=== PATIENT | female | born 1985 | race Caucasian/White ===

== ENCOUNTER 2018-02-11 09:45 | Emergency (ER) | payer OTHER, SELFPAY ==
[2018-02-11] MEDS ORDERED: ONDANSETRON 4 MG/2 ML VIAL ONE (10:32)
[2018-02-11] MEDS ORDERED: MAGNE/ALUM HYDROXD 30 ML UCUP ONE (10:32)
[2018-02-11] MEDS ORDERED: LIDOCAINE VISCOUS 2% SOLN 15 ML UDC ONE (10:48)
[2018-02-11 10:51] LABS: Urine Blood NEGATIVE (NEG); Urine Glucose NEGATIVE (NEG); Urine Protein NEGATIVE (NEG)
[2018-02-11 11:03] LABS: Absolute Lymphocytes (CBC) 1.5 K/uL (0.7-4.9); Absolute Monocytes 0.5 K/uL (0.1-1.3); Absolute Neutrophil 8.8 K/uL (1.8-8.0); Basophils % 0.5 % (0-1.3); Eosinophils % 1.7 % (0-4.4); Lymphocytes % 13.3 % (15.3-44.8); MCH 28.1 pg (27.0-35.0); MCV 83.9 fL (80-100); Monocytes % 4.4 % (3.3-12.3); RBC Red Blood Cell Count 4.52 M/uL (3.86-4.86)
--- NOTE | 2018-02-11 11:15 | RAD REPORT ---
EXAM DESCRIPTION: US - Abdomen Exam Limited - 02/11/2018 10:30 am CLINICAL HISTORY: Abdominal pain. COMPARISON: None. FINDINGS: Multiple gallstones are present. The gallbladder wall is thickened measuring 5 millimeters . The biliary tree is normal caliber. IMPRESSION: Cholelithiasis. Thickened gallbladder wall may indicate cholecystitis
[2018-02-11 11:16] LABS: Urine Amorphous Sediment TRACE /HPF (NONE SEEN); Urine Bacteria 20-50 /HPF (<20); Urine Culture Reflex Order NOT NEEDED; Urine RBC <5 /HPF (NONE SEEN)
[2018-02-11 11:33] LABS: ALT/SGPT 39 U/L (12-78); AST/SGOT 39 U/L (15-37); Albumin 3.3 g/dL (3.4-5.0); Alkaline Phosphatase 86 U/L (45-117); BUN Blood Urea Nitrogen 12 mg/dL (7-18); Bicarbonate 30 mmol/L (21-32); Bilirubin Direct 0.2 mg/dL (0-0.2); Bilirubin Total 0.6 mg/dL (0.2-1.0); Glucose Level 140 mg/dL (74-106); Lipase 11181 U/L (73-393); Potassium 3.8 mmol/L (3.5-5.1); Protein, Total 7.7 g/dL (6.4-8.2); Sodium Level 140 mmol/L (136-145)
--- NOTE | 2018-02-11 11:57 | EDPHYS ---
Physician Documentation [facility] Name: More Bustillo Age: 33 yrs Sex: Female : 1985 Arrival Date: 02/11/2018 Time: 09:46 Bed 6 Private MD: Juan Billy S; None, None ED Physician Jorge Alberto Maravilla HPI: 02/11 10:29 This 33 yrs old Female presents to ER via Ambulatory with complaints of rn Abdominal Pain. 10:29 The patient presents with abdominal pain in the epigastric area. Onset: The rn symptoms/episode began/occurred this morning. The symptoms do not radiate. Associated signs and symptoms: Pertinent positives: nausea and vomiting, Pertinent negatives: chest pain, constipation, diarrhea, dysuria, fever, shortness of breath, vomiting blood. The symptoms are described as achy. Modifying factors: The symptoms are alleviated by nothing, the symptoms are aggravated by food. Severity of pain: At its worst the pain was moderate in the emergency department the pain has improved. The patient has experienced similar episodes in the past. Reports epigastric abd pain, began this AM, ate breakfast fine, has had similar episodes in past, has hx of acid reflux, doesn't take any acid medication, remembers similar episodes in past, worse when was . Improving. Threw up 1 time.. 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 - Social history:: Smoking status: Patient uses tobacco products, smokes one-half pack cigarettes per day. - Ebola Screening: : Patient negative for fever greater than or equal to 101.5 degrees Fahrenheit, and additional compatible Ebola Virus Disease symptoms Patient denies exposure to infectious person Patient denies travel to an Ebola-affected area in the 21 days before illness onset No symptoms or risks identified at this time. - Family history:: not pertinent. - Hospitalizations: : No recent hospitalization is reported. ROS: 10:29 Constitutional: Negative for fever, chills, and weight loss, Eyes: Negative for injury, rn pain, redness, and discharge, Neck: Negative for injury, pain, and swelling, Cardiovascular: Negative for chest pain, palpitations, and edema, Respiratory: Negative for shortness of breath, cough, wheezing, and pleuritic chest pain, Abdomen/GI: Negative for diarrhea, and constipation, Back: Negative for injury and pain, MS/Extremity: Negative for injury and deformity, Skin: Negative for injury, rash, and discoloration, Neuro: Negative for headache, weakness, numbness, tingling, and seizure. Exam: 10:29 Constitutional: This is a well developed, well nourished patient who is awake, alert, rn and in no acute distress. Head/Face: Normocephalic, atraumatic. Eyes: Pupils equal round and reactive to light, extra-ocular motions intact. Lids and lashes normal. Conjunctiva and sclera are non-icteric and not injected. Cornea within normal limits. Periorbital areas with no swelling, redness, or edema. Cardiovascular: Regular rate and rhythm with a normal S1 and S2. No gallops, murmurs, or rubs. Normal PMI, no JVD. No pulse deficits. Respiratory: Lungs have equal breath sounds bilaterally, clear to auscultation and percussion. No rales, rhonchi or wheezes noted. No increased work of breathing, no retractions or nasal flaring. Abdomen/GI: soft, + mild epigastric and RUQ tenderness, no rebound MS/ Extremity: Pulses equal, no cyanosis. Neurovascular intact. Full, normal range of motion. Equal circumference. Neuro: Awake and alert, GCS 15, oriented to person, place, time, and situation. Vital Signs: 09:59 BP 136 / 75; Pulse 96; Resp 17; Temp 97.4; Pulse Ox 98% on R/A; Weight 149.69 kg; aj Height 5 ft. 6 in. (167.64 cm); 11:00 BP 150 / 87; Pulse 85; Resp 17; Pulse Ox 97% on R/A; tw2 09:59 Body Mass Index 53.26 (149.69 kg, 167.64 cm) aj MDM: 10:13 Patient medically screened. rn 11:52 Differential diagnosis: cholecystitis, Cholelithiasis, gastritis, gastroesophageal rn reflux disease, non-specific abd pain, pancreatitis, Peptic Ulcer Disease, Perf. Duodenal Ulcer. Data reviewed: vital signs, nurses notes, lab test result(s), radiologic studies, ultrasound, and as a result, I will admit patient. Counseling: I had a detailed discussion with the patient and/or guardian regarding: the historical points, exam findings, and any diagnostic results supporting the discharge/admit diagnosis, lab results, radiology results, the need for further work-up and treatment in the hospital. Response to treatment: the patient's symptoms have markedly improved after treatment, and as a result, I will admit patient. Admission orders: after a detailed discussion of the patient's condition and case, the admit orders are written by me. ED course: Spoke with patient, told her needs to be admitted for EGD and cholecystectomy, for gallstone pancreatitis, patient refuses, she states she does not believe she has these problems I explained to her, wants a second opinion, I tried to convince her to stay and not leave, she refused, demands someone pulls out IV and lets her go, mother in room, agrees and asks to pull out IV.. 02/11 10:00 Order name: Urine Culture [facility] 02/11 10:00 Order name: Urine Microscopic Only; Complete Time: 11: [facility] 02/11 10:19 Order name: Basic Metabolic Panel; Complete Time: : 02/11 10:19 Order name: CBC with Diff; Complete Time: : 02/11 10:00 Order name: Urine Test (obtain specimen); Complete Time: 10:30 [facility] 02/11 10:19 Order name: Hepatic Function; Complete Time: : 02/11 10:19 Order name: Lipase; Complete Time: : 02/11 10:19 Order name: US Abdomen Limited; Complete Time: 11: 02/11 10:33 Order name: Urine Dipstick--Ancillary (enter results); Complete Time: 10:52 02/11 10:33 Order name: Urine --Ancillary (enter results); Complete Time: 10: 02/11 10:00 Order name: Urine Dipstick-Ancillary (obtain specimen); Complete Time: 10:30 [facility] 02/11 10:19 Order name: IV Saline Lock; Complete Time: 11: 02/11 10:19 Order name: Labs collected and sent; Complete Time: 11:00 rn Administered Medications: 10:42 Drug: Zofran 4 mg Route: IVP; Site: right antecubital; tw2 11:50 Follow up: Response: No adverse reaction tw2 10:50 Drug: GI Cocktail without - (Maalox Suspension 30 ml, Lidocaine Liquid 2 % 15 tw2 ml) Route: PO; 11:50 Follow up: Response: No adverse reaction tw2 Disposition: 02/11/18 11:56 Patient has left against medical advice. Impression: Acute pancreatitis, Cholelithiasis, Cholecystitis, unspecified. - Patients states they are going to Home. - Condition is Stable. - Discharge Instructions: Cholecystitis, Acute Pancreatitis, Cholelithiasis. Follow up: Private Physician; When: Upon discharge from the Emergency Department; Reason: Recheck today's complaints, Re-evaluation by your physician. - Problem is new. - Symptoms have improved. Signatures: Dispatcher [employer] EDMS Kadie Patel RN RN aj Therrien, Shelly, DIRECTOR RELIGIOUS EDUCATION-C DIRECTOR RELIGIOUS EDUCATION-Csnw Jorge Alberto Maravilla MD MD rn Wise, Tara, RN RN tw2 Corrections: (The following items were deleted from the chart) 10:26 10:00 Urine Culture+BA.LAB.BRZ ordered. EDMO EDMS 10:26 10:00 UA MICROSCOPIC+U.LAB.BRZ ordered. EDMO EDMS 12:06 11:56 02/11/2018 11:56 Patients has left against medical advice. Impression: Acute tw2 pancreatitis; Cholelithiasis; Cholecystitis, unspecified. Patient states they are going to Home. Condition is Stable. Follow up: Private Physician; When: Upon discharge from the Emergency Department; Reason: Recheck today's complaints, Re-evaluation by your physician. Problem is new. Symptoms have improved. rn
--- NOTE | 2018-02-11 11:57 | ER ---
Nurse's Notes [facility] Name: More Bustillo Age: 33 yrs Sex: Female : 1985 Arrival Date: 02/11/2018 Time: 09:46 Bed 6 Private MD: Juan Billy S; None, None Diagnosis: Acute pancreatitis;Cholelithiasis;Cholecystitis, unspecified Presentation: 02/11 09:58 Presenting complaint: Patient states: RUQ pain that started this AM with nausea. aj Transition of care: patient was not received from another setting of care. Onset of symptoms was February 11, 2018. Risk Assessment: Do you want to hurt yourself or someone else? Patient reports no desire to harm self or others. Initial Sepsis Screen: Does the patient meet any 2 criteria? No. Patient's initial sepsis screen is negative. Does the patient have a suspected source of infection? No. Patient's initial sepsis screen is negative. Care prior to arrival: None. 09:58 Method Of Arrival: Ambulatory 09:58 Acuity: CHAD 3 aj Triage Assessment: 09:59 General: Appears in no apparent distress. comfortable, Behavior is calm, cooperative, aj appropriate for age. Pain: Complains of pain in right upper quadrant. Neuro: Level of Consciousness is awake, alert, obeys commands, Oriented to person, place, time, situation, Appropriate for age. Respiratory: Airway is patent Respiratory effort is even, unlabored, Respiratory pattern is regular, symmetrical. GI: Abdomen is obese, Reports upper abdominal pain, nausea. Derm: Skin is intact, is healthy with good turgor, Skin is pink, warm \T\ dry. normal. 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 - Social history:: Smoking status: Patient uses tobacco products, smokes one-half pack cigarettes per day. - Ebola Screening: : Patient negative for fever greater than or equal to 101.5 degrees Fahrenheit, and additional compatible Ebola Virus Disease symptoms Patient denies exposure to infectious person Patient denies travel to an Ebola-affected area in the 21 days before illness onset No symptoms or risks identified at this time. - Family history:: not pertinent. - Hospitalizations: : No recent hospitalization is reported. Screenin:20 Abuse screen: Denies threats or abuse. Nutritional screening: No deficits noted. tw2 Tuberculosis screening: No symptoms or risk factors identified. Fall Risk None identified. Assessment: 11:01 Reassessment: Patient appears in no apparent distress at this time. Patient and/or tw2 family updated on plan of care and expected duration. Pain level reassessed. Patient is alert, oriented x 3, equal unlabored respirations, skin warm/dry/pink. Vital Signs: 09:59 BP 136 / 75; Pulse 96; Resp 17; Temp 97.4; Pulse Ox 98% on R/A; Weight 149.69 kg; aj Height 5 ft. 6 in. (167.64 cm); 11:00 BP 150 / 87; Pulse 85; Resp 17; Pulse Ox 97% on R/A; tw2 09:59 Body Mass Index 53.26 (149.69 kg, 167.64 cm) aj ED Course: 09:46 Patient arrived in ED. sb2 09:46 Juan Billy MD is Private Physician. sb2 09:52 None, None is Private Physician. sb2 09:59 Triage completed. aj 09:59 Arm band placed on right wrist. Patient placed in waiting room, Patient notified of wait time. 10:03 Ezequiel Sutton MD is Attending Physician. [facility] 10:05 Bed in low position. Call light in reach. Pulse ox on. NIBP on. tw2 10:09 Attending Physician role handed off by Ezequiel Sutton MD rn 10:09 Jorge Alberto Maravilla MD is Attending Physician. rn 10:24 Ronda Hernandez, MIGUEL is Primary Nurse. tw2 10:29 Patient moved back from ultrasound. sv 10:30 US Abdomen Limited In Process Unspecified. EDMS 11:00 Urine Microscopic Only Sent. tw2 11:00 Urine Culture Sent. tw2 11:00 Inserted saline lock: 22 gauge in right antecubital area, using aseptic technique. tw2 Blood collected. Missed attempt(s): 22 gauge in left antecubital area. Bleeding controlled, band aid applied, catheter tip intact. 12:06 IV discontinued, intact, bleeding controlled, No redness/swelling at site. Pressure tw2 dressing applied. Administered Medications: 10:42 Drug: Zofran 4 mg Route: IVP; Site: right antecubital; tw2 11:50 Follow up: Response: No adverse reaction tw2 10:50 Drug: GI Cocktail without - (Maalox Suspension 30 ml, Lidocaine Liquid 2 % 15 tw2 ml) Route: PO; 11:50 Follow up: Response: No adverse reaction tw2 Outcome: 12:06 AMA AMA form signed tw2 12:06 Patient left the ED. tw2 Signatures: Dispatcher [employer] EDGenie Morales RN Kadie Savage RN Ezequiel May MD MD cha Nieto, Roman, MD MD rn Wise, Tara, RN RN tw2 La Kaplan sb2
[2018-02-11 12:16] VITALS: TEMP 97.4
[2018-02-11 12:17] VITALS: BP 150/87; O2SAT 97
== END 2018-02-11 12:06 | disposition left against medical advice (07) ==
LOC: ER 09:45
DX: K85.90 Acute pancreatitis without necrosis or infection, unspecified (principal); K80.10 Calculus of gallbladder with chronic cholecystitis without obstruction; F17.210 Nicotine dependence, cigarettes, uncomplicated; Z88.6 Allergy status to analgesic agent; Z88.0 Allergy status to penicillin
CPT/HCPCS: 36415; 76705; 80048; 80076; 81003; 81015; 81025; 83690; 85025; 87077; 87086; 87088; 87186; 96374; 99284; J2405

== ENCOUNTER 2018-03-11 08:55 | Inpatient (IN) | payer SELFPAY ==
[2018-03-11 09:46] LABS: Absolute Lymphocytes (CBC) 0.9 K/uL (0.7-4.9); Absolute Monocytes 0.9 K/uL (0.1-1.3); Basophils % 0.3 % (0-1.3); Eosinophils % 0.3 % (0-4.4); Hematocrit 43.2 % (36.0-45.0); Lymphocytes % 6.6 % (15.3-44.8); MCV 83.5 fL (80-100); MPV 9.1 fL (7.6-11.3); Monocytes % 6.4 % (3.3-12.3); RBC Red Blood Cell Count 5.18 M/uL (3.86-4.86)
[2018-03-11 09:57] LABS: Urine Bacteria 20-50 /HPF (<20); Urine Culture Reflex Order REFLEXED; Urine RBC NONE SEEN /HPF (NONE SEEN)
[2018-03-11 09:59] LABS: Urine Blood NEGATIVE (NEG); Urine Glucose NEGATIVE (NEG); Urine Protein 2+ (NEG); Urine Specific Gravity 1.025 (1.005-1.030)
[2018-03-11 10:07] LABS: ALT/SGPT 241 U/L (12-78); Albumin 3.9 g/dL (3.4-5.0); Alkaline Phosphatase 113 U/L (45-117); BUN Blood Urea Nitrogen 13 mg/dL (7-18); Bicarbonate 28 mmol/L (21-32); Bilirubin Direct 0.8 mg/dL (0-0.2); Bilirubin Total 1.1 mg/dL (0.2-1.0); Glucose Level 122 mg/dL (74-106); Magnesium 1.8 mg/dL (1.8-2.4); Potassium 3.8 mmol/L (3.5-5.1); Protein, Total 8.3 g/dL (6.4-8.2); Sodium Level 136 mmol/L (136-145)
--- NOTE | 2018-03-11 10:07 | RAD REPORT ---
EXAM DESCRIPTION: US - Abdomen Exam Limited - 03/11/2018 9:58 am CLINICAL HISTORY: EPIGASTRIC PAIN COMPARISON: Abdomen Exam Limited dated 02/11/2018 FINDINGS: The gallbladder demonstrates multiple shadowing gallstones. No pericholecystic fluid or ga llbladder wall thickening. The common bile duct is normal measuring 4 mm. The liver demonstrates no findings of intrahepatic biliary dilatation. IMPRESSION: Cholelithiasis.
[2018-03-11 10:10] LABS: AST/SGOT 466 U/L (15-37)
[2018-03-11 10:11] LABS: Amylase Level > 650 U/L (25-115); Lipase > 1500 U/L (73-393)
[2018-03-11 10:38] LABS: Blood Morphology Comment NOT SEEN (NOT SEEN); Platelet Estimate ADEQ; Urine White Blood Cell Casts OK
[2018-03-11] MEDS ORDERED: CEFTRIAXONE/SWI 1gm 1 GM/10 ML SYR ONE (10:53)
--- NOTE | 2018-03-11 11:15 | RAD REPORT ---
EXAM DESCRIPTION: CTAbdomen Pelvis W Contrast - 03/11/2018 11:05 am CLINICAL HISTORY: Abdominal pain. upper abdomen pain COMPARISON: Abdomen Exam Limited dated 03/11/2018; Abdomen Exam Limited dated 02/11/2018 TECHNIQUE: Biphasic CT imaging of the abdomen and pelvis was performed with 100 ml non-ionic IV cont rast. All CT scans are performed using dose optimization technique as appropriate and may include automated exposure control or mA/KV adjustment according to patient size. FINDINGS: The lung bases are clear. Mild fatty liver is noted. The spleen, adrenal glands and kidneys are within normal limits. An edemat ous appearance to the pancreas is seen with mild peripancreatic fat stranding compatible with mild ac kelly pancreatitis. No pseudocyst or abscess. No portal vein thrombus. No bowel obstruction, free air, free fluid or abscess. The appendix is normal. No evidence of signi ficant lymphadenopathy. No suspicious bony findings. IMPRESSION: Mild acute pancreatitis is noted.
--- NOTE | 2018-03-11 11:35 | ER ---
Nurse's Notes [facility] Name: More Bsutillo Age: 33 yrs Sex: Female : 1985 Arrival Date: 03/11/2018 Time: 08:59 Bed 14 Private MD: None, None Diagnosis: Acute pancreatitis, unspecified;Cholelithiasis Presentation: 03/11 09:07 Presenting complaint: Patient states: i started having this abdominal pain (epigastric hj area) that started around 4 am today, was here last month for the same problem and was told i have gall stones that were small; reports nausea, denies vomiting; denies diarrhea/ constipation; denies fever and chills;. Transition of care: patient was not received from another setting of care. Onset of symptoms was March 11, 2018. Risk Assessment: Do you want to hurt yourself or someone else? Patient reports no desire to harm self or others. Initial Sepsis Screen: Does the patient meet any 2 criteria? No. Patient's initial sepsis screen is negative. Does the patient have a suspected source of infection? No. Patient's initial sepsis screen is negative. Care prior to arrival: None. 09:07 Method Of Arrival: Ambulatory 09:07 Acuity: CHAD 3 hj Triage Assessment: 09:11 General: Appears in no apparent distress. uncomfortable, obese, Behavior is calm, hj cooperative, appropriate for age. Pain: Complains of pain in epigastric area. GI: Reports upper abdominal pain, nausea. 09:11 EENT: No signs and/or symptoms were reported regarding the EENT system. Neuro: Level of hj Consciousness is awake, alert, obeys commands, Oriented to person, place, time, situation, Appropriate for age. Cardiovascular: Capillary refill < 3 seconds Patient's skin is warm and dry. Respiratory: Airway is patent Respiratory effort is even, unlabored, Respiratory pattern is regular, symmetrical. : No signs and/or symptoms were reported regarding the genitourinary system. Derm: No signs and/or symptoms reported regarding the dermatologic system. Musculoskeletal: No signs and/or symptoms reported regarding the musculoskeletal system. 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 - Social history:: Smoking status: Patient uses tobacco products, smokes one-half pack cigarettes per day, Patient/guardian denies using alcohol. - Ebola Screening: : Patient negative for fever greater than or equal to 101.5 degrees Fahrenheit, and additional compatible Ebola Virus Disease symptoms Patient denies exposure to infectious person Patient denies travel to an Ebola-affected area in the 21 days before illness onset. Screenin:11 Abuse screen: Denies threats or abuse. Denies injuries from another. Nutritional hj screening: No deficits noted. Tuberculosis screening: No symptoms or risk factors identified. Fall Risk None identified. Assessment: 09:11 GI: Bowel sounds present X 4 quads. Abd is soft Abdomen is tender to palpation. hj 09:14 Reassessment: Patient and/or family updated on plan of care and expected duration. Pain hj level reassessed. Patient is alert, oriented x 3, equal unlabored respirations, skin warm/dry/pink. see triage for assessment;. 11:24 Reassessment: Patient and/or family updated on plan of care and expected duration. Pain hj level reassessed. Patient is alert, oriented x 3, equal unlabored respirations, skin warm/dry/pink. for possible admit;. 13:16 Reassessment: Patient and/or family updated on plan of care and expected duration. Pain cc3 level reassessed. Patient is alert, oriented x 3, equal unlabored respirations, skin warm/dry/pink. for admit; 214;. Vital Signs: 09:12 BP 149 / 96; Pulse 88; Resp 18; Temp 97.8(O); Pulse Ox 97% on R/A; Weight 156.49 kg; hj Height 5 ft. 6 in. (167.64 cm); Pain 8/10; 09:53 BP 140 / 89; Pulse 89; Resp 18; Pulse Ox 100% on R/A; hj 11:24 BP 123 / 62; Pulse 89; Resp 18; Pulse Ox 97% on R/A; hj 13:16 BP 119 / 69; Pulse 85; Resp 18; Pulse Ox 100% on R/A; cc3 09:12 Body Mass Index 55.68 (156.49 kg, 167.64 cm) ED Course: 08:59 Patient arrived in ED. sb2 08:59 None, None is Private Physician. sb2 09:02 [facility] cp 09:02 Jorge Alberto Maravilla MD is Attending Physician. cp 09:04 Evan Giron, MIGUEL is Primary Nurse. hj 09:09 Triage completed. hj 09:11 Arm band placed on right wrist. hj 09:13 Patient has correct armband on for positive identification. Placed in gown. Bed in low hj position. Call light in reach. Side rails up X 1. Adult w/ patient. 09:31 EKG done, by mold maintenance technician. reviewed by Ezequiel LIRIANO. at1 09:31 Inserted saline lock: 20 gauge in right antecubital area, using aseptic technique. ag Blood collected. IV started by EMS student Susannah Eddy Supervised by Meka. 09:33 Magnesium Sent. ag 09:33 Troponin I Sent. ag 09:33 Amylase, Serum Sent. ag 09:34 Basic Metabolic Panel Sent. ag 09:34 CBC with Diff Sent. ag 09:34 Creatinine for Radiology Sent. ag 09:34 Hepatic Function Sent. ag 09:34 Lipase Sent. ag 09:57 Ultrasound completed. Patient tolerated well. Note: US DONE BEDSIDE. aa4 09:58 US Abdomen Limited In Process Unspecified. EDMS 10:[address] via wheelchair. sj 11:05 CT Abd/Pelvis - W/Contrast In Process Unspecified. EDMS 11:05 CT completed. Patient tolerated procedure well. Patient moved back from CT. sj 11:34 Alize Dolan MD is Hospitalizing Provider. cp 14:23 No provider procedures requiring assistance completed. Patient admitted, IV remains in hj place. intact. Administered Medications: 11:16 Drug: Rocephin - (cefTRIAXone) 1 grams Route: IVPB; Infused Over: 30 mins; Site: right hj antecubital; 13:24 Follow up: IV Status: Completed infusion cc3 11:24 Drug: Zofran 4 mg Route: IVP; Site: right antecubital; hj 13:25 Follow up: Response: No adverse reaction cc3 11:24 Drug: morphine 4 mg Route: IVP; Site: right antecubital; hj 13:25 Follow up: Response: No adverse reaction cc3 11:25 Drug: ProTONIX 40 mg Route: IVP; Site: right antecubital; hj 13:25 Follow up: Response: No adverse reaction cc3 11:27 Drug: metroNIDAZOLE 500 mg Volume: 100 ml; Route: IVPB; Infused Over: 30 mins; Site: hj right antecubital; 13:26 Follow up: IV Status: Completed infusion cc3 Outcome: 11:34 Decision to Hospitalize by Provider. cp 13:45 Admitted to Med/surg accompanied by nurse, via wheelchair, room 214, with chart, Report hj called to MIGUEL Newsome 13:45 Condition: stable 13:45 Instructed on the need for admit, Demonstrated understanding of instructions. 14:26 Patient left the ED. Signatures: Dispatcher [employer] EDMS Tess Bravo Amanda aa4 Kadie Tyson, front desk EKG Tat1 Meka Oconnor Henry, RN RN Ezequiel Patel PA PA La Paredes sb2 Jennifer Todd cc3 Corrections: (The following items were deleted from the chart) 14:25 14:23 Condition: stable [facility] 14:25 14:23 Admitted to Med/surg accompanied by nurse, via wheelchair, room 214, with chart, hj Report called to MIGUEL Newsome 14: 14:23 Instructed on the need for admit, Demonstrated understanding of instructions, [facility]
--- NOTE | 2018-03-11 11:35 | EDPHYS ---
Physician Documentation [facility] Name: More Bustillo Age: 33 yrs Sex: Female : 1985 Arrival Date: 03/11/2018 Time: 08:59 Bed 14 Private MD: None, None ED Physician Jorge Alberto Maravilla HPI: 03/11 09:17 This 33 yrs old Female presents to ER via Ambulatory with complaints of cp Abdominal Pain. 09:17 The patient presents with abdominal pain in the epigastric area. cp 09:17 Onset: The symptoms/episode began/occurred this morning. The symptoms radiate to right cp back. Associated signs and symptoms: Pertinent positives: nausea and vomiting, Pertinent negatives: blood in stools, chest pain, constipation, diarrhea, fever, vomiting blood. The symptoms are described as waxing/waning. SLIP MAKER: 09:12 LMP 02/11/2018 hj Historical: - Allergies: 09:10 Codeine; hj 09:10 PENICILLINS; hj - Home Meds: 09:10 Nexium Oral [Active]; Ibuprofen Oral [Active]; hj - PMHx: 09:10 Asthma; seasonal allergies; hj - PSHx: 09:10 None; hj - Immunization history:: Adult Immunizations up to date. - Social history:: Smoking status: Patient uses tobacco products, smokes one-half pack cigarettes per day, Patient/guardian denies using alcohol. - Ebola Screening: : Patient negative for fever greater than or equal to 101.5 degrees Fahrenheit, and additional compatible Ebola Virus Disease symptoms Patient denies exposure to infectious person Patient denies travel to an Ebola-affected area in the 21 days before illness onset. ROS: 09:20 Constitutional: Negative for body aches, chills, fever, poor PO intake. cp 09:20 Eyes: Negative for injury, pain, redness, and discharge. cp 09:20 ENT: Negative for drainage from ear(s), ear pain, sore throat, difficulty swallowing, difficulty handling secretions. 09:20 Cardiovascular: Negative for chest pain, edema, palpitations. 09:20 Respiratory: Negative for cough, shortness of breath, wheezing. 09:20 Abdomen/GI: Positive for abdominal pain, nausea, vomiting, Negative for diarrhea, constipation, hematemesis, black/tarry stool, rectal bleeding. 09:20 Back: Positive for radiated pain. 09:20 : Negative for urinary symptoms, flank pain. 09:20 Skin: Negative for cellulitis, rash. 09:20 Neuro: Negative for altered mental status, headache, weakness. 09:20 All other systems are negative. Exam: 09:25 Constitutional: The patient appears in no acute distress, alert, awake, cp non-diaphoretic, non-toxic, well developed, well nourished, obese. 09:25 Head/Face: Normocephalic, atraumatic. Eyes: Pupils equal round and reactive to light, cp extra-ocular motions intact. Lids and lashes normal. Conjunctiva and sclera are non-icteric and not injected. Cornea within normal limits. Periorbital areas with no swelling, redness, or edema. ENT: Nares patent. No nasal discharge, no septal abnormalities noted. Tympanic membranes are normal and external auditory canals are clear. Oropharynx with no redness, swelling, or masses, exudates, or evidence of obstruction, uvula midline. Mucous membranes moist. 09:25 Neck: External neck: is normal, ROM/movement: is normal, is supple, without pain, no range of motions limitations, no nuchal rigidity. 09:25 Chest/axilla: Inspection: normal, Palpation: is normal, no crepitus, no tenderness. 09:25 Cardiovascular: Rate: normal, Rhythm: regular, Edema: is not appreciated, JVD: is not appreciated. 09:25 Respiratory: the patient does not display signs of respiratory distress, Respirations: normal, no use of accessory muscles, no retractions, no splinting, no tachypnea, labored breathing, is not present, Breath sounds: are clear throughout, no decreased breath sounds, no stridor, no wheezing. 09:25 Abdomen/GI: Inspection: obese Bowel sounds: active, all quadrants, Palpation: soft, in all quadrants, rebound tenderness, is not appreciated, voluntary guarding, is elicited in the epigastric area and right upper quadrant, involuntary guarding, is not appreciated. 09:25 Back: pain, that is mild, of the right mid back, ROM is normal. 09:25 Skin: cellulitis, is not appreciated, no rash present. 09:25 Neuro: Orientation: to person, place \T\ time. Mentation: lucid, able to follow commands, Cerebellar function: is grossly normal, Motor: moves all fours, strength is normal, Sensation: no obvious gross deficits. 09:26 ECG was reviewed by the Attending Physician. cp Vital Signs: 09:12 BP 149 / 96; Pulse 88; Resp 18; Temp 97.8(O); Pulse Ox 97% on R/A; Weight 156.49 kg; hj Height 5 ft. 6 in. (167.64 cm); Pain 8/10; 09:53 BP 140 / 89; Pulse 89; Resp 18; Pulse Ox 100% on R/A; hj 11:24 BP 123 / 62; Pulse 89; Resp 18; Pulse Ox 97% on R/A; hj 13:16 BP 119 / 69; Pulse 85; Resp 18; Pulse Ox 100% on R/A; cc3 09:12 Body Mass Index 55.68 (156.49 kg, 167.64 cm) hj MDM: 09:04 Patient medically screened. cp 10:00 Differential diagnosis: cholecystitis, Cholelithiasis, gastritis, pancreatitis, Peptic cp Ulcer Disease, Perf. Duodenal Ulcer, Perf. Gastric Ulcer, Pyelonephritis, Ureterolithiasis, urinary tract infection. 11:20 Data reviewed: vital signs, nurses notes, lab test result(s), EKG, radiologic studies, cp CT scan, ultrasound. 11:20 Test interpretation: by ED physician or midlevel provider: ECG. Counseling: I had a cp detailed discussion with the patient and/or guardian regarding: the historical points, exam findings, and any diagnostic results supporting the discharge/admit diagnosis, lab results, radiology results, the need for further work-up and treatment in the hospital. Response to treatment: the patient's symptoms have mildly improved after treatment. 11:30 Physician consultation: Alize Dolan MD was contacted at 11:30, regarding admission, cp to the medical/surgical unit. patient's condition, would like consultation with Dr. DR Horan and DR Rocha. 03/11 09:13 Order name: Amylase, Serum; Complete Time: 10:38 cp 03/11 09:13 Order name: Basic Metabolic Panel; Complete Time: 10:38 cp 03/11 10:38 Interpretation: Normal except: GLUC 122. cp 03/11 09:13 Order name: CBC with Diff; Complete Time: 10:40 cp 03/11 10:01 Interpretation: Normal except: WBC 13.9; RBC 5.18; ZACHERY% 86.4; LYM% 6.6; NEUT A 12.0. 03/11 09:13 Order name: Creatinine for Radiology; Complete Time: 10:00 03/11 09:13 Order name: Hepatic Function; Complete Time: 10:38 03/11 10:39 Interpretation: Normal except: AST 466; ALT 241; BILIT 1.1; BILID 0.8; TP 8.3; GLOB cp 4.4; A/G 0.9. 03/11 09:13 Order name: Lipase; Complete Time: 10:38 03/11 10:39 Interpretation: Abnormal: LIP > 1500. 03/11 09:13 Order name: Urine Microscopic Only; Complete Time: 10:00 03/11 10:11 Interpretation: Normal except: UBACT 20-50. 03/11 09:13 Order name: Troponin I; Complete Time: 10:08 03/11 09:13 Order name: Magnesium; Complete Time: 10:38 03/11 09:23 Order name: Urine Dipstick--Ancillary (enter results); Complete Time: 10:00 03/11 10:39 Interpretation: Normal except: UPROT 2+; UESTR TRACE. 03/11 09:23 Order name: Urine --Ancillary (enter results); Complete Time: 10:00 03/11 09:28 Order name: US Abdomen Limited; Complete Time: 10:08 03/11 10:08 Interpretation: Report reviewed. 03/11 09:49 Order name: CBC Smear Scan; Complete Time: 10:40 [facility] 03/11 09:59 Order name: Urine Culture [facility] 03/11 09:13 Order name: Urine Test (obtain specimen); Complete Time: 09:15 03/11 09:13 Order name: IV Saline Lock; Complete Time: 09:29 03/11 09:13 Order name: Labs collected and sent; Complete Time: 09:29 03/11 09:13 Order name: Urine Dipstick-Ancillary (obtain specimen); Complete Time: 09:15 03/11 09:13 Order name: EKG; Complete Time: 09:13 03/11 10:10 Order name: CT Abd/Pelvis - W/Contrast; Complete Time: 11:15 03/11 11:16 Interpretation: Report reviewed. cp 03/11 11:13 Order name: NPO; Complete Time: 11:17 cp EC: Rate is 95 beats/min. Rhythm is regular. IN interval is normal. QRS interval is cp prolonged at 110 msec. QT interval is prolonged at 398 msec. Interpreted by me. Reviewed by me. Administered Medications: 11:16 Drug: Rocephin - (cefTRIAXone) 1 grams Route: IVPB; Infused Over: 30 mins; Site: right hj antecubital; 13:24 Follow up: IV Status: Completed infusion cc3 11:24 Drug: Zofran 4 mg Route: IVP; Site: right antecubital; hj 13:25 Follow up: Response: No adverse reaction cc3 11:24 Drug: morphine 4 mg Route: IVP; Site: right antecubital; hj 13:25 Follow up: Response: No adverse reaction cc3 11:25 Drug: ProTONIX 40 mg Route: IVP; Site: right antecubital; hj 13:25 Follow up: Response: No adverse reaction cc3 11:27 Drug: metroNIDAZOLE 500 mg Volume: 100 ml; Route: IVPB; Infused Over: 30 mins; Site: hj right antecubital; 13:26 Follow up: IV Status: Completed infusion cc3 Disposition: 16:23 Co-signature as Attending Physician, Jorge Alberto Maravilla MD. rn Disposition: 03/11/18 11:34 Hospitalization ordered by Alize Dolan for Inpatient Admission. Preliminary diagnosis are Acute pancreatitis, unspecified, Cholelithiasis. - Bed requested for Telemetry/MedSurg (Inpatient). - Status is Inpatient Admission. hj - Condition is Stable. - Problem is new. - Symptoms have improved. UTI on Admission? No Signatures: Dispatcher [employer] EDMS Yanet Espinoza Roman, MD MD rn Joaquin, Henry, RN RN hj Page, Corey, PA PA cp Jennifer Todd cc3 Corrections: (The following items were deleted from the chart) 12:29 11:34 Hospitalization Ordered by Alize Dolan MD for Inpatient Admission. Preliminary cp diagnosis is Acute pancreatitis, unspecified. Bed requested for Telemetry/MedSurg (Inpatient). Status is Inpatient Admission. Condition is Stable. Problem is new. Symptoms have improved. UTI on Admission? No. cp 13:11 12:29 03/11/2018 11:34 Hospitalization Ordered by Alize Dolan MD for Inpatient bd Admission. Preliminary diagnosis is Acute pancreatitis, unspecified; Cholelithiasis. Bed requested for Telemetry/MedSurg (Inpatient). Status is Inpatient Admission. Condition is Stable. Problem is new. Symptoms have improved. UTI on Admission? No. cp 14:26 13:11 03/11/2018 11:34 Hospitalization Ordered by Alize Dolan MD for Inpatient hj Admission. Preliminary diagnosis is Acute pancreatitis, unspecified; Cholelithiasis. Bed requested for Telemetry/MedSurg (Inpatient). Status is Inpatient Admission. Condition is Stable. Problem is new. Symptoms have improved. UTI on Admission? No. bd
[2018-03-11] MEDS ORDERED: MORPHINE 4 MG/ML SYR ONE (11:36)
[2018-03-11] MEDS ORDERED: PANTOPRAZOLE 40 MG INJ ONE (11:36)
[2018-03-11] MEDS ORDERED: ONDANSETRON 4 MG/2 ML VIAL ONE (11:36)
[2018-03-11] MEDS ORDERED: METRONIDAZOLE 500mg IVPB 500 MG/100 ML BAG IV ONE (11:36)
[2018-03-11] MEDS ORDERED: ONDANSETRON 4 MG/2 ML VIAL IV PRN (12:35)
--- NOTE | 2018-03-11 12:45 | EKG ---
Test Date: 2018-03-11 Test Time: 09:18:44 Air Crew Supervisor: CJ MEASUREMENT RESULTS: Intervals: Rate: 95 AR: 140 QRSD: 110 QT: 398 QTc: 500 Hume: P: 41 AR: 140 QRS: 12 T: 27 INTERPRETIVE STATEMENTS: Normal sinus rhythm Incomplete right bundle branch block Prolonged QT Abnormal ECG No previous ECG available for comparison Electronically Signed On 03-11-18 12:44:06 CDT by Jeffrey Mejia
[2018-03-11] MEDS: NA CHLORIDE 0.9% 1,000 ML IV SCH ×2 (13:00→20:44)
[2018-03-11 15:07] VITALS: BMI 57.2
[2018-03-11] MEDS ORDERED: PNEUMOCOCCAL VACCINE 0.5 ML IMVAC ONE (16:00)
[2018-03-11] MEDS: MORPHINE 2 MG/ML SYR IV PRN (16:33)
--- NOTE | 2018-03-11 16:35 | P.HP ---
Certification for Inpatient Patient admitted to: Inpatient With expected LOS: >2 Midnights Patient will require the following post-hospital care: None Practitioner: I am a practitioner with admitting privileges, knowledge of patient current condition, hospital course, and medical plan of care. Services: Services provided to patient in accordance with Admission requirements found in Title 42 Section 412.3 of the Code of Federal Regulations Patient History Date of Service: 03/12/18 Primary Care Provider: None Reason for admission: Abd pain History of Present Illness: This is a 33-year-old female with no significant past medical history who presented to the ED complaining of having some right upper quadrant pain nausea vomiting along with chills. Patient stated that for past 2-3 days she has been having some nausea and vomiting along with abdominal pain and thus decided to come to the ER for further workup. Patient has never had episodes like this in the past. Patient denies having any fever chills shortness of breath chest pain headaches or any other associated symptoms. Patient states that she has been generally healthy state other than this. Patient is a tobacco smoker and smokes about 2-3 cigarettes per day. Allergies codeine [Codeine] Adverse Reaction (Mild, Verified 03/11/18 12:57) Hives Penicillins Adverse Reaction (Mild, Verified 03/11/18 12:57) Hives Home Medications: Budesonide/Formoterol Fumarate [Symbicort 160-4.5 Mcg Inhaler] 2 puff IH BEDTIME 03/11/18 Esomeprazole Magnesium [Nexium] 20 mg PO DAILY 03/11/18 Ibuprofen [Ibu] 600 mg PO DAILY PRN 03/11/18 - Past Medical/Surgical History Has patient received pneumonia vaccine in the past: No Diabetic: No -: ASTHMA -: GALLSTONES -: GERD -: GESTASTIONAL DIABETES Past Surgical History: Reviewed- Non-Contributory - Family History Family History: Reviewed- Non-Contributory - Family History Mother -: Lung disease Notes: copd, nhlymphoma STAGE 3 Father -: Heart disease, Lung disease Notes: COPD, CHF - Social History Smoking Status: Current every day smoker Alcohol use: No CD- Drugs: No Caffeine use: Yes Place of Residence: Home Review of Systems 10-point ROS is otherwise unremarkable General: As per HPI Physical Examination - Vital Signs Temperature: 97.9 F Blood Pressure: 140/80 Pulse: 80 Respirations: 18 Pulse Ox (%): 98 - Physical Exam General: Alert, Oriented x3, Acute distress HEENT: Atraumatic, PERRLA, EOMI Neck: Supple, 2+ carotid pulse no bruit Respiratory: Clear to auscultation bilaterally, Normal air movement Cardiovascular: Regular rate/rhythm, Normal S1 S2 Gastrointestinal: Normal bowel sounds, Soft and benign, Non-distended, Tenderness (RUQ pain) Musculoskeletal: No tenderness Integumentary: No rashes Neurological: Normal speech, Normal strength at 5/5 x4 extr, Normal tone Lymphatics: No axilla or inguinal lymphadenopathy - Studies Laboratory Data (last 24 hrs) 03/11/18 09:28: Troponin I < 0.02 03/11/18 09:28: Creatinine 0.80 03/11/18 09:28: WBC 13.9 H, Hgb 14.5, Hct 43.2, Plt Count 285 03/11/18 09:28: Sodium 136, Potassium 3.8, BUN 13, Creatinine 0.70, Glucose 122 H, Magnesium 1.8, Total Bilirubin 1.1 H, AST 466 H*, ALT 241 H, Alkaline Phosphatase 113, Amylase > 650 H*, Lipase > 1500 H Assessment and Plan - Problems (Diagnosis) (1) Acute pancreatitis Onset Date: 03/12/18 Current Visit: Yes Status: Acute Plan: Elevated Lipase and ABD CT with mild pancreatitis -Gen Surgery consulted. -GI surgery Consulted. -MRCP pending -IV fluids and NPO Qualifiers: Pancreatitis type: biliary Acute pancreatitis complication: uninfected necrosis Qualified Code(s): K85.11 - Biliary acute pancreatitis with uninfected necrosis (2) Cholelithiasis Onset Date: 03/12/18 Current Visit: Yes Status: Acute Plan: Abd US and CT with Cholelithiasis -GI consulted. Awaiting reccs -MRCP pending Qualifiers: Cholelithiasis location: gallbladder Cholecystitis presence: without cholecystitis Biliary obstruction: with biliary obstruction Qualified Code(s ): K80.21 - Calculus of gallbladder without cholecystitis with obstruction Discharge Plan: Home Plan to discharge in: 72 Hours - Advance Directives Does patient have a Living Will: No Does patient have a Durable POA for Healthcare: No - Code Status/Comfort Care Code Status Assessed: Yes Critical Care: No
--- NOTE | 2018-03-11 18:07 | RAD REPORT ---
EXAM DESCRIPTION: MRI - Cholangiogram - 03/11/2018 3:21 pm CLINICAL HISTORY: Epigastric pain, history of gallstones COMPARISON: CT March 11, ultrasound March 11 TECHNIQUE: Axial and coronal source images were obtained. Coronal, static MRCP images were generated and reviewed. Horizontal and vertical axis rotational images generated and reviewed. FINDINGS: Exam is a centrally nondiagnostic. Patient has very extensive motion degradation throughou t the examination. While there is no gross evidence for biliary tree dilatation, this examination is not felt to be adequate for accurate assessment. On the source images there is no evidence for intrahepatic or extrahepatic biliary tree dilatation. IMPRESSION: Essentially nondiagnostic MRCP examination. No gross evidence for biliary tree dilatatio n.
[2018-03-11] MEDS ORDERED: PANTOPRAZOLE 40MG TABLET PO SCH (19:00)
[2018-03-11] MEDS ORDERED: PIPER/TAZO/NS 2.25gm 2.25 GM/50 ML BAG IVPB SCH (19:00)
[2018-03-11] MEDS ORDERED: SODIUM CHLORIDE 0.9% 10ML INJ IV PRN (19:15)
[2018-03-11] MEDS: CIPROFLOXACIN 400mg IV 400 MG/200 ML BAG IV SCH (20:44)
[2018-03-11] MEDS ORDERED: LORAZEPAM 0.5 MG TABLET PO ONE (22:13)
[2018-03-11] MEDS: ALBUTEROL 2.5 MG/3 ML NEB SOL NEB PRN (22:29)
[2018-03-12] MEDS: METRONIDAZOLE 500mg IVPB 500 MG/100 ML BAG IV SCH ×3 (00:33→18:28)
[2018-03-12] MEDS: MORPHINE 2 MG/ML SYR IV PRN ×3 (04:56→21:34)
[2018-03-12 05:15] LABS: Absolute Lymphocytes (CBC) 1.2 K/uL (0.7-4.9); Absolute Monocytes 0.6 K/uL (0.1-1.3); Absolute Neutrophil 6.9 K/uL (1.8-8.0); Basophils % 0.3 % (0-1.3); Eosinophils % 1.2 % (0-4.4); Hematocrit 39.1 % (36.0-45.0); Lymphocytes % 13.6 % (15.3-44.8); MCH 28.1 pg (27.0-35.0); MCV 83.9 fL (80-100); MPV 9.5 fL (7.6-11.3); Monocytes % 6.4 % (3.3-12.3); RBC Red Blood Cell Count 4.66 M/uL (3.86-4.86)
[2018-03-12 05:40] LABS: ALT/SGPT 296 U/L (12-78); AST/SGOT 320 U/L (15-37); Albumin 3.3 g/dL (3.4-5.0); Alkaline Phosphatase 158 U/L (45-117); BUN Blood Urea Nitrogen 9 mg/dL (7-18); Bicarbonate 26 mmol/L (21-32); Bilirubin Total 2.8 mg/dL (0.2-1.0); Glucose Level 106 mg/dL (74-106); Magnesium 1.9 mg/dL (1.8-2.4); Phosphorus 2.7 mg/dL (2.5-4.9); Potassium 3.8 mmol/L (3.5-5.1); Protein, Total 7.3 g/dL (6.4-8.2); Sodium Level 138 mmol/L (136-145)
[2018-03-12] MEDS ORDERED: KCL 20 MEQ/100 mL IVPB 20 MEQ/100 ML BAG IV SCH (06:00)
[2018-03-12] MEDS: ALBUTEROL 2.5 MG/3 ML NEB SOL NEB PRN ×3 (07:52→22:27)
[2018-03-12] MEDS: CIPROFLOXACIN 400mg IV 400 MG/200 ML BAG IV SCH ×2 (08:39→21:28)
[2018-03-12] MEDS: PANTOPRAZOLE 40 MG INJ IVP SCH (08:39)
[2018-03-12] MEDS ORDERED: HOME MED 1 EA UNK (Esomeprazole Magnesium [Nexium] 20 MG) PO SCH (09:00)
[2018-03-12 09:18] LABS: Protime INR 1.13
[2018-03-12] MEDS: NA CHLORIDE 0.9% 1,000 ML IV SCH ×3 (11:37→19:00)
[2018-03-12] MEDS ORDERED: SIMETHICONE 40 MG/ 0.6 ML ONE (12:04)
[2018-03-12] MEDS ORDERED: GENTAMICIN SULF 80 MG/2ML INJ ONE (12:35)
[2018-03-12] MEDS ORDERED: PROPOFOL 200 MG/20 ML VIAL IV ONE ×2 (12:46→13:19)
[2018-03-12] MEDS ORDERED: LIDOCAINE 1% MPF 2 ML AMPULE ONE (12:46)
--- NOTE | 2018-03-12 13:00 | P.PN ---
Subjective Date of Service: 03/12/18 Patient seen and examined with RN. Chart reviewed. Discussed with surgeon she currently scheduled for ERCP this morning. Review of Systems General: As per HPI Physical Examination - Vital Signs Temperature: 98.1 F Blood Pressure: 141/75 Pulse: 89 Respirations: 20 Pulse Ox (%): 96 - Physical Exam General: Alert, In no apparent distress HEENT: Atraumatic, PERRLA, EOMI Neck: Supple, JVD not distended Respiratory: Clear to auscultation bilaterally, Normal air movement Cardiovascular: Regular rate/rhythm, Normal S1 S2 Gastrointestinal: Normal bowel sounds, No tenderness Musculoskeletal: No tenderness Integumentary: No rashes Neurological: Normal speech, Normal tone, Normal affect Lymphatics: No axilla or inguinal lymphadenopathy - Studies Medications List Reviewed: Yes Assessment & Plan - Problems (Diagnosis) (1) Acute pancreatitis Onset Date: 03/12/18 Current Visit: Yes Status: Acute Plan: Elevated Lipase and ABD CT with mild pancreatitis -Gen Surgery consulted. Appreciated Reccs -ERCP and Surgery for Gallbladder removal -GI surgery Consulted. Appreciated Reccs -planned for ERCP today -MRCP undiagostic -IV fluids and NPO Qualifiers: Pancreatitis type: biliary Acute pancreatitis complication: uninfected necrosis Qualified Code(s): K85.11 - Biliary acute pancreatitis with uninfected necrosis (2) Cholelithiasis Onset Date: 03/12/18 Current Visit: Yes Status: Acute Plan: Abd US and CT with Cholelithiasis -GI consulted. -gen Surgery Consulted -Scheduled for ERCP today Qualifiers: Cholelithiasis location: gallbladder Cholecystitis presence: without cholecystitis Biliary obstruction: with biliary obstruction Qualified Code(s ): K80.21 - Calculus of gallbladder without cholecystitis with obstruction Discharge Plan: Home Plan to discharge in: 72 Hours - Code Status/Comfort Care Code Status Assessed: Yes Critical Care: No
[2018-03-12] MEDS ORDERED: GLUCAGON 1 MG/VIAL ONE (13:34)
[2018-03-12] MEDS ORDERED: Ringers Lactate 1,000 ML IV ONE (13:46)
[2018-03-12] MEDS ORDERED: MORPHINE 4 MG/ML SYR ONE (13:49)
--- NOTE | 2018-03-12 14:29 | ENDO RPT ---
[address], [address] ERCP PROCEDURE REPORT EXAM DATE: 03/12/2018 PATIENT NAME: More Bustillo MR #: [id number] BIRTHDATE: 1985 ATTENDING: Dru Horan Dr STATUS: inpatient - 7 MECHANICAL ENGINEERING INTERN: Kamini Houston and Yanely Baum RN INDICATIONS: The patient is a 33 yr old Female here for an ERCP due to gallstone pancreatitis, abdominal pain, abnormal imaging, abnormal Liver Function Tests, and jaundice PROCEDURE PERFORMED: ERCP with sphincterotomy MEDICATIONS: Per Anesthesia. CONSENT: The patient understands the risks and benefits of the procedure and understands that these risks include, but are not limited to: sedation, allergic reaction, infection, perforation and/or bleeding. Alternative means of evaluation and treatment include, among others: physical exam, x-rays, and/or surgical intervention. The patient elects to proceed with this endoscopic procedure. DESCRIPTION OF PROCEDURE: During intra-op preparation period all mechanical medical equipment was checked for proper function. Hand hygiene and appropriate measures for infection prevention was taken. Procedure, possible complications, and alternatives including but not limited to the possibility of bleeding, perforation, tear, infection, sepsis, need for surgery, need for blood transfusion, and anesthesia related complications were explained to the patient. In addition, 5-30% incidence of acute pancreatitis as a result of ERCP were explained. After the risks, benefits and alternatives of the procedure were thoroughly explained, Informed was verified, confirmed and timeout was successfully executed by the treatment team. With the patient in left semi-prone position, medications were administered intravenously.The [id number] ([id number]) was passed from the mouth into the esophagus and further advanced from the esophagus into the stomach. From stomach scope was directed to the second portion of the duodenum. Major papilla was aligned with the duodenoscope. The scope position was confirmed fluoroscopically. Rest of the findings/therapeutics are given below. The scope was then completely withdrawn from the patient and the procedure completed. The pulse, BP, and O2 saturation were monitored and documented by the physician and the nursing staff throughout the entire procedure. The patient was cared for as planned according to standard protocol. The patient was then discharged to recovery in stable condition and with appropriate post procedure care. Cannulation of the common bile duct was accomplished. The common bile duct and intrahepatics were normal without filling defects, strictures, or stones. in the common bile duct. Sphincterotomy was performed with a regular 20 mm papillotome. The pancreatic duct was filled to the tail and appeared to be normal. Care was taken not to overfill the ductal system. ADVERSE EVENT: none IMPRESSIONS: 1. Cannulation of the common bile duct was accomplished. The common bile duct and intrahepatics were normal without filling defects, strictures, or stones. in the common bile duct, s/p sphincterotomy (gallstone pancreatitis) 2. The pancreatic duct was filled to the tail and appeared to be normal. Care was taken not to overfill the ductal system. RECOMMENDATIONS: 1. antibiotics 2. cholecystectomy as per surgery REPEAT EXAM: Dru Horan Dr eSigned: Dru Horan Dr 03/12/2018 1:23 PM cc: Dane Rocha CPT CODES: ICD9 CODES: PATIENT NAME: KenyMore MR#: [id number]
--- NOTE | 2018-03-12 14:34 | RAD REPORT ---
EXAM DESCRIPTION: RAD - Fluoroscopy ERCP - 03/12/2018 2:02 pm CLINICAL HISTORY: Abdominal pain FINDINGS: The common bile duct was cannulated and contrast administered. The exam was performed by Vidhi Horan. Common bile duct caliber is normal. Distal common bile duct is unopacified. Additional portions of th e more proximal duct are not opacified Pancreatic duct is normal caliber. Cystic duct is opacified. Contrast is not seen within the duodenum . Four fluoroscopic spot images are submitted. Fluoroscopy time 5 minutes 15 seconds
--- NOTE | 2018-03-12 14:57 | CON ---
Date of Consultation: 03/12/2018 Brief History Of Present Illness: The patient is a 33-year-old female, who presents to the hospital with approximately 1-1/2 day history of epigastric abdominal pain. She states that she had some dry heaving and nausea associated with this. She has no change in bowel or bladder habits. Si nce her admission, her pain has gotten significantly better and is almost resolved at this point. Antonio ibarra is now asking for food, and hungry. She has had similar episodes before in the past, was seen by Vidhi Maravilla, she states in the emergency room, who recommended that she have surgery at that time; [facility], she did not have the option to go to seek surgical treatment at that time because she has no insu marti and continues to have no insurance. Logistically, she is worried about being in the hospital f or an additional time and wants to leave the hospital at this point, now that she is feeling better b ecause she does have a child who is due to get surgery in the next few days she tells me for a clubfo ot. She therefore does not want any surgical intervention prior to the surgery of her child, so that she can be present for that. Past Medical History: Significant for asthma, GERD, gestational diabetes as well as a history of gal lstones. Past Surgical History: None. Allergies: CODEINE AND PENICILLIN. Home Medications: Include Symbicort, Nexium, and ibuprofen. Family History: Her mother has COPD and lymphoma. Father had COPD and CHF. Social History: She does smoke every day. She denies alcohol or recreational drug use. Physical Examination: Vital Signs: At the time of my examination, her BMI is 57.2. Her vital signs were blood pressure of 124/65, pulse is 88, respiratory rate 20, temperature 97.6. General: She is awake, alert, oriented. Psychiatric: She is appropriate and conversive. HEENT: She is normocephalic. Her sclerae are anicteric. Her mucous membranes are moist. Oropharyn x is clear. She has very poor dentition with multiple teeth missing. Neck: Supple. No JVD. Chest: Normal expansion and excursion. Cardiovascular: Regular rate and rhythm. Pulmonary: Clear to auscultation bilaterally. Abdomen: Soft with mild epigastric tenderness to palpation. No rebound. No guarding. No focal per itonitis. Jackson sign is negative. Extremities: No clubbing, cyanosis, or edema. Skin: Warm and dry. Laboratory Data: Reveals a white blood count of 8.8, hemoglobin 13.1, hematocrit 39.1, platelet coun t is 255. Her neutrophils are 78%, down from 86%. Her PT 13.3, INR 1.13, PTT 36.8. Sodium 138, pot assium 3.8, chloride 104, carbon dioxide 26, BUN 9, creatinine 0.6, glucose is 106, calcium 8.7. Her phosphorus is 2.7, magnesium 1.9. Her total bilirubin 2.8, up from 1.1. Her AST is 320, down from 466. Her ALT is 296, up from 241. Her alkaline phosphatase is 158, up from 113. Lipase was greater than 1500 on admission, now currently 2010. UA was 20/50 bacteria and 2+ protein, otherwise she had a urine test, which is negative. She had imaging performed, which included an ultrasound and abdominal CT. The abdominal ultrasound was officially read as cholelithiasis. CT scan of the ab domen and pelvis was officially read as mild acute pancreatitis noted. Assessment And Plan: This is a 33-year-old female, who presents with signs and symptoms of acute gal lstone pancreatitis. 1.IV fluid hydration. 2.N.p.o. status. 3.Antibiotic coverage. 4.Serial exams. 5.I explained the risks, benefits, alternatives of laparoscopic possible open cholecystectomy includ ing but not limited to bleeding, infection, injury to bile ducts, intestines, need for further operat ion or procedures. She states that she does not want surgery at this time as she has a child who is having surgery later this week and as such was discharged. I have explained that she can get signifi cantly sicker and potentially from this process. However, she states she understands this and wi ll follow up as an outpatient or seek help at a different time. I therefore have spoken to her and h er mother regarding this and I have recommended that she stay in the hospital; however, she as above is not agreeable with that plan at this time and therefore wants to be discharged now that she is fee ling better and potentially stay 1 more day and then will follow up as an outpatient. Thank you for this interesting consult. ANSHUL/JOHN Voice ID: [id number] Report ID: [id number]
[2018-03-12] MEDS ORDERED: Ringers Lactate 1,000 ML IV SCH (15:00)
[2018-03-12] MEDS ORDERED: HYDROMORPHONE HCL 0.5 MG/0.5 ML INJ IV ONE (18:00)
[2018-03-12] MEDS ORDERED: LORAZEPAM 0.5 MG TABLET PO ONE (21:42)
[2018-03-13] MEDS: NA CHLORIDE 0.9% 1,000 ML IV SCH ×2 (01:09→16:42)
[2018-03-13] MEDS: METRONIDAZOLE 500mg IVPB 500 MG/100 ML BAG IV SCH ×3 (01:09→16:42)
[2018-03-13] MEDS: ALBUTEROL 2.5 MG/3 ML NEB SOL NEB PRN ×5 (02:14→23:03)
[2018-03-13] MEDS: MORPHINE 2 MG/ML SYR IV PRN ×3 (03:18→22:40)
[2018-03-13 05:08] LABS: Absolute Lymphocytes (CBC) 1.4 K/uL (0.7-4.9); Absolute Monocytes 0.6 K/uL (0.1-1.3); Absolute Neutrophil 9.7 K/uL (1.8-8.0); Basophils % 0.3 % (0-1.3); Eosinophils % 0.8 % (0-4.4); Hematocrit 37.5 % (36.0-45.0); Lymphocytes % 11.6 % (15.3-44.8); MCH 28.5 pg (27.0-35.0); MCV 84.2 fL (80-100); MPV 9.1 fL (7.6-11.3); Monocytes % 4.8 % (3.3-12.3); RBC Red Blood Cell Count 4.45 M/uL (3.86-4.86)
[2018-03-13 05:24] LABS: ALT/SGPT 205 U/L (12-78); AST/SGOT 137 U/L (15-37); Albumin 3.5 g/dL (3.4-5.0); Alkaline Phosphatase 136 U/L (45-117); BUN Blood Urea Nitrogen 8 mg/dL (7-18); Bicarbonate 27 mmol/L (21-32); Bilirubin Total 0.9 mg/dL (0.2-1.0); Glucose Level 82 mg/dL (74-106); Potassium 3.6 mmol/L (3.5-5.1); Protein, Total 7.5 g/dL (6.4-8.2); Sodium Level 137 mmol/L (136-145)
[2018-03-13] MEDS ORDERED: KCL 20 MEQ/100 mL IVPB 20 MEQ/100 ML BAG IV SCH (07:00)
--- NOTE | 2018-03-13 08:58 | CON ---
Date of Consultation: 03/12/2018 Reason For Consultation: Possible choledocholithiasis and gallstone pancreatitis. History Of Present Illness: This patient is a 33-year-old white female, 9 months status post gestati on childbirth, who presents to the hospital with 1-month history of midepigastric pain off and on, na usea, vomiting, maximum pain 10/10, now down to 0 with IV fluids and IV pain medicines, p.r.n. antiem etics. The patient notes no fevers, chills, night sweats, heat or cold intolerance, lower extremity edema, melena, hematochezia. Past Medical History: Significant for asthma, gallstones, gastroesophageal reflux disease , gestatio nal diabetes. She is 9 months status post gestation 9-month-old daughter. Medications: At home include Symbicort, Nexium, ibuprofen. Allergies: TO CODEINE, PENICILLIN. Family History: Father with COPD, CHF. Mother with COPD, non-Hodgkin lymphoma. Social History: . One daughter 9 months old. Tobacco: Half a pack per day. No alcohol. Review of Systems: The patient has midepigastric pain, nausea, vomiting, but no fevers, chills. No heat or cold intoler ance, muscle aches, joint aches, backaches, chest pain, short of breath, seizure, syncope. No melena , hematochezia, hematemesis, coffee-ground emesis, hematuria, dysuria, polydipsia, hemoptysis, depres linda, anxiety. Physical Examination: Vital Signs: The patient is 5 foot 6 inches, 345 pounds. BMI of 57.2 kg/meter square. General: Obese female, lying in bed, in no acute distress. HEENT: Normocephalic, atraumatic. Anicteric. Pupils equal, round, and reactive to light. Orophary nx is clear with poor dentition with loss of many of the teeth. Conjunctivae slight icterus. ____. Neck: Supple. No masses. Respirations: Clear to auscultation bilaterally. Cardiac: Regular rate and rhythm. No gallop. Abdomen: Positive bowel sounds. Bowel sounds hypoactive. Soft, nondistended, nontender. No hepato splenomegaly. No peritoneal or Jackson sign. No rebound. No guarding. Obese. Extremities: No clubbing, cyanosis, or edema. 2+ pulses. Neuro: Alert and oriented x3. Grossly nonfocal. 5/5 motor, sensation intact to light touch. Laboratory Data: The patient has a white count today of , down from 13.9; hemoglobin 13.1; hematocrit 39.1; MCV of 84; platelet count of 255; polys of 79%, down from 86% yesterday; lymphocyte s 14%; monocytes 6%; eosinophils 1%. PT of 13.3, INR of 1.13, PTT of 36.8. The patient has a sodium 138, potassium 3.8, chloride 104, bicarb 26, BUN of 9, creatinine 0.96, glucose 106, calcium 8.7, ph osphorus 2.7, magnesium 1.9. Total bilirubin 2.8. Yesterday, she had total bilirubin 1.1, direct bi lirubin 0.8. AST of 320, ALT of 296, alkaline phosphatase 158. Troponin I less than 0.02. Total pr otein 7.3, albumin 3.3, globulin 4.0. Yesterday, she had amylase greater than 650, lipase greater th an 1500. Today, she has a lipase of . Imaging: Ultrasound of abdomen which reveals cholelithiasis with normal common bile duct at 4 mm, no pericholecystic fluid or gallbladder wall thickening, gallbladder shadowing gallstones. CT of abdomen and pelvis reveals mild acute pancreatitis with mild fatty liver. MRCP was nondiagnost ic due to very extensive motion artifact degrading the images. There was no gross evidence of ____ is not felt to be adequate for accurate assessment. Impression: 1.Possible choledocholithiasis, equivocal MRCP though on ultrasound common bile duct was only 4 mm i n size. The patient has elevated liver chemistries with AST of 320, ALT of 296, alkaline phosphatase 158, total bilirubin now. Lipase at with slight jaundice, therefore, we will need to proceed with ERCP. The patient has midepigastric pain 10/10 but no nausea, vomiting. MRCP w as equivocal, too much motion artifact to be accurate. 2.Gallstone pancreatitis. CT scan reveals mild acute pancreatitis and mild fatty liver disease with elevated amylase and lipase greater than 650 for amylase greater than for lipase today. Recommendations: 1.Keep n.p.o. 2.Continue IV fluids and IV antibiotics. 3.Check PT/PTT. 4.Monitor labs. 5.Continue p.r.n. pain medications, antiemetics. 6.Proceed with ERCP. KASHIF/JOHN Voice ID: [id number] Report ID: [id number]
[2018-03-13] MEDS: CIPROFLOXACIN 400mg IV 400 MG/200 ML BAG IV SCH ×2 (09:01→21:11)
[2018-03-13] MEDS: PANTOPRAZOLE 40 MG INJ IVP SCH (09:01)
--- NOTE | 2018-03-13 16:55 | PN ---
Date of Progress Note: 03/13/2018 Subjective: The patient seen and examined. Chart reviewed and case discussed with RN and Dr. Rocha. The patient is still having some abdominal discomfort. No nausea or vomiting. Review of Systems: Negative except as above. Medications: List reviewed. Physical Examination: Vital Signs: Temperature 97.3, heart rate 78, blood pressure 142/67, respirations 18, O2 of 96% on room air. General: Awake, alert, oriented x3, some mild distress, morbidly obese female, BMI 57.2, ill-appearing. CV: S1, S2. No murmurs. Regular rate and rhythm. Peripheral pulses present. Respiratory: Clear to auscultation bilaterally. No wheezing or stridor. Gastrointestinal: Abdomen is soft. Mild tenderness to palpation. No rebound or guarding. Bowel sounds hypoactive. Extremities: No clubbing, cyanosis, or edema. Neurologic: Nonfocal. Laboratory Data: Sodium 137, potassium 3.6, chloride 106, CO2 of 27, BUN 8, creatinine 0.6, glucose 82, calcium 8.7, total bilirubin 0.9, AST 137, ALT 205, alkaline phosphatase 136, lipase is 2011. WBC 11.7, H and H of 12.7 and 37.5, platelets 265. Neutrophils 82%. Hepatitis panel pending. Urine culture growing out E. coli. Blood cultures, no growth to date. Assessment And Plan: 1. Acute pancreatitis, lipase still elevated, slowly trending down status post endoscopic retrograde cholangiopancreatogram with sphincterotomy. The patient will need cholecystectomy once pancreatitis is improved. We will continue with IV fluids and clear liquid diet. 2. Cholelithiasis. Abdominal ultrasound and CT show gallbladder stones. The patient does need cholecystectomy; however, Dr. Rocha recommends awaiting until pancreatitis has improved. We will anticipate surgery once lipase is trending down. Pain has improved the next 48 to 72 hours. 3. Morbid obesity, BMI of 57.2. 4. Intermittent asthma, albuterol p.r.n. 5. Gastroesophageal reflux disease, continue PPI. 6. UTI: acute cystitis without hematuria secondary to ecoli. Continue antibiotics. /JOHN Voice ID: [id number] Report ID: [id number] [facility]ITALVid[facility]
--- NOTE | 2018-03-13 18:59 | P.PN ---
Subjective Date of Service: 03/13/18 Primary Care Provider: None Chief Complaint: Abd pain, cholecystitis & cholelithiasis, gallstone pancreatitis Subjective: Improving (Feels much better, awaiting lap nazario surgery with mother in room.) Review of Systems 10-point ROS is otherwise unremarkable Gastrointestinal: Abdominal Pain (improved) Physical Examination - Vital Signs Temperature: 97.0 F Blood Pressure: 143/83 Pulse: 97 Respirations: 17 Pulse Ox (%): 97 - Physical Exam General: Alert, In no apparent distress, Oriented x3, Cooperative HEENT: Atraumatic, Normocephalic, PERRLA, EOMI Neck: Supple Respiratory: Normal air movement Cardiovascular: Normal pulses Gastrointestinal: No rebound, No guarding, Tenderness (mild) Neurological: Normal speech, Normal strength at 5/5 x4 extr - Studies Microbiology Data (last 24 hrs): 03/11/18 09:20 Clean Catch Urine [place] Count - Final BETWEEN 10,000 & 100,000 CFU/ML 03/11/18 09:20 Clean Catch Urine - Final Escherichia Coli Medications List Reviewed: Yes Assessment And Plan - Current Problems (Diagnosis) (1) Gallstone pancreatitis Current Visit: Yes Status: Acute Comment: Improved. (2) Abnormal liver enzymes Current Visit: Yes Status: Acute (3) Epigastric abdominal pain Current Visit: Yes Status: Acute (4) Nausea & vomiting Current Visit: Yes Status: Acute (5) Cholelithiasis Onset Date: 03/12/18 Current Visit: Yes Status: Acute Qualifiers: Cholelithiasis location: gallbladder Cholecystitis presence: without cholecystitis Biliary obstruction: with biliary obstruction Qualified Code(s ): K80.21 - Calculus of gallbladder without cholecystitis with obstruction - Plan REC: 1) await lap nazario as per surgery 2) IVFs
[2018-03-13 20:04] VITALS: O2SAT 98
[2018-03-13] MEDS ORDERED: LORAZEPAM 0.5 MG TABLET PO ONE (22:50)
[2018-03-14] MEDS: NA CHLORIDE 0.9% 1,000 ML IV SCH ×2 (01:00→10:55)
[2018-03-14] MEDS: METRONIDAZOLE 500mg IVPB 500 MG/100 ML BAG IV SCH ×2 (01:07→09:00)
[2018-03-14] MEDS: ALBUTEROL 2.5 MG/3 ML NEB SOL NEB PRN ×2 (02:15→07:44)
[2018-03-14 03:41] LABS: HBsAG Nonreactive (Nonreactive); Hepatitis A IgM Antibody Nonreactive
[2018-03-14 06:06] LABS: Absolute Lymphocytes (CBC) 1.5 K/uL (0.7-4.9); Absolute Monocytes 0.6 K/uL (0.1-1.3); Absolute Neutrophil 8.8 K/uL (1.8-8.0); Basophils % 0.4 % (0-1.3); Eosinophils % 1.2 % (0-4.4); Hematocrit 38.5 % (36.0-45.0); Lymphocytes % 13.7 % (15.3-44.8); MCH 28.1 pg (27.0-35.0); MCV 83.9 fL (80-100); MPV 8.8 fL (7.6-11.3); Monocytes % 5.7 % (3.3-12.3); RBC Red Blood Cell Count 4.59 M/uL (3.86-4.86)
[2018-03-14 06:26] LABS: ALT/SGPT 154 U/L (12-78); AST/SGOT 69 U/L (15-37); Albumin 3.7 g/dL (3.4-5.0); Alkaline Phosphatase 134 U/L (45-117); BUN Blood Urea Nitrogen 6 mg/dL (7-18); Bicarbonate 24 mmol/L (21-32); Bilirubin Total 0.6 mg/dL (0.2-1.0); Glucose Level 106 mg/dL (74-106); Lipase 664 U/L (73-393); Potassium 3.8 mmol/L (3.5-5.1); Protein, Total 8.3 g/dL (6.4-8.2); Sodium Level 138 mmol/L (136-145)
[2018-03-14] MEDS: MORPHINE 2 MG/ML SYR IV PRN (06:56)
[2018-03-14] MEDS ORDERED: KCL 20 MEQ/100 mL IVPB 20 MEQ/100 ML BAG IV SCH (07:00)
[2018-03-14] MEDS ORDERED: POTASSIUM CL SA 10 MEQ TAB PO ONE (07:56)
--- NOTE | 2018-03-14 08:41 | P.PN ---
Subjective Date of Service: 03/14/18 Primary Care Provider: None Chief Complaint: Abd pain, cholecystitis & cholelithiasis, gallstone pancreatitis Subjective: No new changes (no acute events, no changes) Physical Examination - Vital Signs Temperature: 97.7 F Blood Pressure: 137/63 Pulse: 87 Respirations: 18 Pulse Ox (%): 97 - Physical Exam General: Alert, In no apparent distress, Cooperative HEENT: Mucous membr. moist/pink Gastrointestinal: Other (soft, obese, mild epigastric TTP to deep palpation.) - Studies Microbiology Data (last 24 hrs): 03/11/18 09:20 Clean Catch Urine [place] Count - Final BETWEEN 10,000 & 100,000 CFU/ML 03/11/18 09:20 Clean Catch Urine - Final Escherichia Coli Medications List Reviewed: Yes Assessment And Plan - Current Problems (Diagnosis) (1) Acute pancreatitis Onset Date: 03/12/18 Current Visit: Yes Status: Acute Plan: Patient continues to have pancreatitis confirmed with continued elevated lipase - cancel laparoscopic cholecystectomy for today - serial exams - follow lipase - ok to have clear liquids Qualifiers: Pancreatitis type: biliary Acute pancreatitis complication: uninfected necrosis Qualified Code(s): K85.11 - Biliary acute pancreatitis with uninfected necrosis
[2018-03-14] MEDS: CIPROFLOXACIN 400mg IV 400 MG/200 ML BAG IV SCH (09:00)
[2018-03-14] MEDS: PANTOPRAZOLE 40 MG INJ IVP SCH (09:00)
[2018-03-14 15:07] VITALS: BP 138/76; TEMP 97
--- NOTE | 2018-03-14 20:22 | DS ---
Date of Discharge: 03/14/2018 Consultants: Dr. Rocha with General Surgery and Dr. Horan with GI. Procedures: ERCP on 03/12/2018. Admitting Diagnoses: 1. Acute pancreatitis without infection or necrosis. 2. Cholelithiasis. 3. Morbid obesity. BMI 57. Discharge Diagnoses: 1. Acute pancreatitis, improved significantly. 2. Cholelithiasis. Abdominal ultrasound and CT showing gallbladder stones, status post endoscopic retrograde cholangiopancreatogram. The patient did have a biliary obstruction, but no cholecystitis. 3. Morbid obesity. BMI of 57.2. 4. Intermittent asthma. 5. Gastroesophageal reflux disease without esophagitis. 6. Urinary tract infection, acute cystitis without hematuria secondary to Escherichia coli, treated with antibiotics. Hospital Course: The patient is a 33-year-old morbidly obese female, comes in with right upper quadrant abdominal pain. She was found to have cholelithiasis on imaging study. Ultrasound did not show any intrahepatic biliary dilatation. CBD was normal at [address] scan of the abdomen and pelvis showed mild acute pancreatitis. Her lipase level was elevated. MRCP was done to rule out gallstone pancreatitis. Did not show any evidence of biliary tree dilatation. GI, Dr. Horan was consulted and the patient was scheduled for ERCP. Procedure was done on 03/10/2018, as mentioned above. The patient had a sphincterotomy performed. No stones in the common bile duct were seen. The patient also had cannulation of the common bile duct. The patient's condition improved. She had improvement in her lipase levels, which trended down, however, still elevated at 664. Dr. Rocha with General Surgery was consulted, who is covering for Dr. Barney, who was unavailable that today. The patient's liver enzymes also trended down. Her bilirubin normalized. The patient does need a cholecystectomy and was recommended, however, due to patient's social situation as her daughter has a club foot and is having surgery on Saturday. The patient does not wish to stay in the hospital. She understands risks involved and states that she has to be there for her daughter surgery, which is understandable. The patient will need to follow up with Dr. Rocha as an outpatient for cholecystectomy. She was also informed to return to the ER for worsening condition or to go to [facility], which was also discussed as the patient may have some financial constraints. The patient's WBC count is essentially normalized. Her symptoms were resolved. She did not have any further abdominal pain, nausea. She was able to tolerate a GI soft diet. Her blood cultures were negative. She did have some E. coli growing out of her urine culture, which was essentially pansensitive except to ampicillin and . The patient will be discharged with a course of antibiotics. The patient was then discharged home in a stable condition. Activity: No driving or operating heavy machinery while on narcotics. Diet: A bland diet. No fried or fatty foods. Followup: Follow up with PCP in 2 to 3 days. Follow up with surgeon, Dr. Rocha in 2 weeks for cholecystectomy. Follow up with GI, Dr. Horan in 2 weeks. Return to ER for worsening condition. Total times spent discharging the patient was 39 minutes. Physical Examination: General: Awake, alert, oriented x3. Morbidly obese female, no acute distress. CV: S1, S2. No murmurs. Respiratory: Moving air well bilaterally. No wheezing. Gastrointestinal: Abdomen is soft, nontender, nondistended. Positive bowel sounds. Extremities: No clubbing, cyanosis, or edema. Neurologic: Nonfocal. SA/MODL Voice ID: [id number] Report ID: [id number] [facility]TD[facility]id[facility]
== END 2018-03-14 13:42 | disposition home or self-care (01) | DRG 439 ==
LOC: ER 08:55 → ERHOLD 12:32 → 2ND 13:28
PROVIDERS: ADMIT Family Medicine; ATTEND Family Medicine
PROC: BF111ZZ Fluoroscopy of Biliary and Pancreatic Ducts using Low Osmolar Contrast (ICD-10-PCS; 2018-03-12)
PROC: 0FJD8ZZ Inspection of Pancreatic Duct, Via Natural or Artificial Opening Endoscopic (ICD-10-PCS; 2018-03-12)
PROC: 0FJB8ZZ Inspection of Hepatobiliary Duct, Via Natural or Artificial Opening Endoscopic (ICD-10-PCS; principal; 2018-03-12 12:30)
DX: K85.11 Biliary acute pancreatitis with uninfected necrosis (principal); K80.21 Calculus of gallbladder without cholecystitis with obstruction; Z68.43 Body mass index [BMI] 50.0-59.9, adult; N30.00 Acute cystitis without hematuria; K85.90 Acute pancreatitis without necrosis or infection, unspecified; E66.01 Morbid (severe) obesity due to excess calories; J45.20 Mild intermittent asthma, uncomplicated; K21.9 Gastro-esophageal reflux disease without esophagitis; F17.210 Nicotine dependence, cigarettes, uncomplicated; B96.20 Unspecified Escherichia coli [E. coli] as the cause of diseases classified elsewhere; Z88.5 Allergy status to narcotic agent; Z88.0 Allergy status to penicillin
CPT/HCPCS: 36415; 74177; 74181; 76705; 80048; 80053; 80074; 80076; 81003; 81015; 81025; 82150; 83690; 83735; 84100; 84484; 85025; 85610; 85730; 87040; 87077; 87086; 87088; 87186; 93005; 94760; 96365; 96375; 99285; C1769; C9113; J0696; J0744; J1170; J1580; J1610; J2001; J2270; J2405; J7030; Q9967

== ENCOUNTER 2020-08-04 07:17 | Emergency (ER) | payer SELFPAY ==
--- NOTE | 2020-08-04 08:15 | EDPHYS ---
Physician Documentation [facility] Name: More Bustillo Age: 35 yrs Sex: Female : 1985 Arrival Date: 08/04/2020 Time: 07:19 Bed 24 Private MD: ED Physician Danny Graham HPI: 08/04 11:10 This 35 yrs old Female presents to ER via Ambulatory with complaints of Foot kdr Pain - swelling. 11:10 The patient presents with an abscess, small, pain, that is acute, swelling, tenderness. kdr The complaints affect the left foot. Context: The problem was sustained at home, resulted from an unknown cause, the patient can partially bear weight, the patient is able to ambulate, with moderate difficulty. Onset: The symptoms/episode began/occurred gradually, last week, The patient had a prior ruptured spontaneously some weeks ago. Since then she was on abx and it seemed to resolveuntil the last week when agin, she began to have pain and dnt3mnviv to the lateral aspect of the left distal foot at the TCP. Modifying factors: The symptoms are alleviated by nothing, the symptoms are aggravated by weight bearing, movement, wearing shoes. Associated signs and symptoms: The patient has no apparent associated signs or symptoms. Severity of symptoms: At their worst the symptoms were moderate, in the emergency department the symptoms are unchanged. The patient has experienced a previous episode, Had a large abscess in the same area that ruptured . The patient has not recently seen a physician. 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 - Social history:: Smoking status: Patient reports the use of cigarette tobacco products, smokes one-half pack cigarettes per day. ROS: 11:10 MS/extremity: Positive for injury or acute deformity, erythema, pain, swelling, kdr tenderness, of the lateral side of left foot. 11:39 Constitutional: Negative for fever, chills, and weight loss. kdr Exam: 11:10 Constitutional: This is a well developed, well nourished patient who is awake, alert, kdr and in no acute distress. Head/Face: Normocephalic, atraumatic. 11:10 Musculoskeletal/extremity: Extremities: grossly normal except: noted in the lateral side of left foot: erythema, pain, swelling, tenderness, Attempted Ultra sound evaluation for abscess. None seen at this time. Vital Signs: 07:35 BP 142 / 98; Pulse 100; Resp 16; Temp 97.9; Pulse Ox 99% on R/A; Weight 142.88 kg; iw Height 5 ft. 6 in. (167.64 cm); Pain 9/10; 07:35 Body Mass Index 50.84 (142.88 kg, 167.64 cm) iw MDM: 08:14 Patient medically screened. kdr 11:10 Data reviewed: vital signs, nurses notes. Counseling: I had a detailed discussion with kdr the patient and/or guardian regarding: the historical points, exam findings, and any diagnostic results supporting the discharge/admit diagnosis, the need for outpatient follow up. 08/04 08:19 Order name: Crutches; Complete Time: 08:25 kdr Administered Medications: 08:25 Drug: KeFLEX 500 mg Route: PO; jd3 08:43 Follow up: Response: Medication administered at discharge. jd3 08:25 Drug: Ibuprofen 800 mg Route: PO; jd3 08:43 Follow up: Response: Medication administered at discharge. jd3 Disposition: 08/04/20 08:14 Discharged to Home. Impression: Cellulitis of left lower limb - Foot. - Condition is Stable. - Discharge Instructions: Cellulitis, Adult, [id number]. - Prescriptions for Keflex 500 mg Oral Capsule - take 1 capsule by ORAL route every 8 hours for 10 days; 30 capsule. Tramadol 50 mg Oral Tablet - take 1 tablet by ORAL route every 8 hours as needed; 12 tablet. - Medication Reconciliation Form, Thank You Letter, Antibiotic Education, Prescription Opioid Use, Work release form form. - Follow up: Private Physician; When: 2 - 3 days; Reason: If symptoms return, Further diagnostic work-up, Recheck today's complaints, Continuance of care, Re-evaluation by your physician. - Problem is an acute exacerbation. - Symptoms have improved. Signatures: Danny Graham MD MD kdr Nuris Barnard RN Lobo Casas RN RN jd3 Corrections: (The following items were deleted from the chart) 08:44 08:14 08/04/2020 08:14 Discharged to Home. Impression: Cellulitis of left lower limb - jd3 Foot. Condition is Stable. Forms are Medication Reconciliation Form, Thank You Letter, Antibiotic Education, Prescription Opioid Use. Follow up: Private Physician; When: 2 - 3 days; Reason: If symptoms return, Further diagnostic work-up, Recheck today's complaints, Continuance of care, Re-evaluation by your physician. Problem is an acute exacerbation. Symptoms have improved. kdr
--- NOTE | 2020-08-04 08:15 | ER ---
Nurse's Notes [facility] Name: More Bustillo Age: 35 yrs Sex: Female : 1985 Arrival Date: 08/04/2020 Time: 07:19 Bed 24 Private MD: Diagnosis: Cellulitis of left lower limb-Foot Presentation: 08/04 07:35 Chief complaint: Patient states: had a callous on side of left foot about a month ago, iw was put on antibiotics and it went away, now has a knot on bottom of left foot with streaking and has a lot of pain, yesterday pain was bad. Coronavirus screen: At this time, the client does not indicate any symptoms associated with coronavirus-19. Ebola Screen: Patient negative for fever greater than or equal to 101.5 degrees Fahrenheit, and additional compatible Ebola Virus Disease symptoms Patient denies exposure to infectious person. Patient denies travel to an Ebola-affected area in the 21 days before illness onset. No symptoms or risks identified at this time. Initial Sepsis Screen: Does the patient meet any 2 criteria? No. Patient's initial sepsis screen is negative. Does the patient have a suspected source of infection? No. Patient's initial sepsis screen is negative. Risk Assessment: Do you want to hurt yourself or someone else? Patient reports no desire to harm self or others. Onset of symptoms was August 04, 2020. 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 - Social history:: Smoking status: Patient reports the use of cigarette tobacco products, smokes one-half pack cigarettes per day. Screenin:27 Abuse screen: Denies threats or abuse. Nutritional screening: No deficits noted. jd3 Tuberculosis screening: No symptoms or risk factors identified. Fall Risk Ambulatory Aid- Crutches/Cane/Walker (15 pts). Gait- Normal/Bed Rest/Wheelchair (0 pts) Mental Status- Oriented to own ability (0 pts). Total Wray Fall Scale indicates No Risk (0-24 pts). Assessment: 08:25 General: Appears in no apparent distress. uncomfortable, Behavior is calm, cooperative, jd3 appropriate for age. Pain: Complains of pain in lateral side of left foot Quality of pain is described as sharp, tender, Aggravated by weight bearing. Neuro: Level of Consciousness is awake, alert, obeys commands, Oriented to person, place, time, situation. Cardiovascular: Denies chest pain, Capillary refill < 3 seconds Patient's skin is warm and dry. Respiratory: Airway is patent Respiratory effort is even, unlabored, Respiratory pattern is regular, symmetrical, Denies cough, shortness of breath. GI: No signs and/or symptoms were reported involving the gastrointestinal system. : No signs and/or symptoms were reported regarding the genitourinary system. EENT: No signs and/or symptoms were reported regarding the EENT system. Derm: Skin is intact, Skin is dry, Skin is normal, Skin temperature is warm. Musculoskeletal: Circulation, motion, and sensation intact. Range of motion: intact in all extremities. 08:42 Reassessment: Patient appears in no apparent distress at this time. Patient and/or jd3 family updated on plan of care and expected duration. Pain level reassessed. Patient is alert, oriented x 3, equal unlabored respirations, skin warm/dry/pink. Vital Signs: 07:35 BP 142 / 98; Pulse 100; Resp 16; Temp 97.9; Pulse Ox 99% on R/A; Weight 142.88 kg; iw Height 5 ft. 6 in. (167.64 cm); Pain 9/10; 07:35 Body Mass Index 50.84 (142.88 kg, 167.64 cm) iw ED Course: 07:19 Patient arrived in ED. as 07:36 Triage completed. iw 07:37 Arm band placed on. iw 07:40 Danny Graham MD is Attending Physician. kdr 08:17 Lobo Montalvo RN is Primary Nurse. jd3 08:27 Patient has correct armband on for positive identification. Bed in low position. Call jd3 light in reach. Side rails up X 1. Pulse ox on. NIBP on. 08:42 No provider procedures requiring assistance completed. Patient did not have IV access jd3 during this emergency room visit. Administered Medications: 08:25 Drug: KeFLEX 500 mg Route: PO; jd3 08:43 Follow up: Response: Medication administered at discharge. jd3 08:25 Drug: Ibuprofen 800 mg Route: PO; jd3 08:43 Follow up: Response: Medication administered at discharge. jd3 Outcome: 08:14 Discharge ordered by . kdr 08:43 Discharged to home ambulatory, with crutches, with family. jd3 08:43 Condition: stable 08:43 Discharge instructions given to patient, Instructed on discharge instructions, follow up and referral plans. medication usage, crutch walking, Demonstrated understanding of instructions, follow-up care, medications, crutch walking, Prescriptions given X 2. 08:44 Patient left the ED. jd3 Signatures: Danny Graham MD MD kdr Martinez, Amelia as Williams, Irene, MIGUEL RN Lobo Gerber RN RN jd3 Corrections: (The following items were deleted from the chart) 07:56 07:35 BP 142 / 98; Pulse 100bpm; Resp 16bpm; Pulse Ox 99% RA; 142.88 kg; Height 5 ft. 6 iw in.; BMI: 50.8; Pain 9/10; iw
[2020-08-04] MEDS ORDERED: IBUPROFEN 400 MG TAB ONE (08:34)
[2020-08-04] MEDS ORDERED: CEPHALEXIN 250 MG CAP ONE (08:34)
[2020-08-04 08:48] VITALS: BP 142/98; TEMP 97.9; O2SAT 99
== END 2020-08-04 08:44 | disposition home or self-care (01) ==
LOC: ER 07:17
DX: L03.116 Cellulitis of left lower limb (principal); F17.210 Nicotine dependence, cigarettes, uncomplicated; Z88.0 Allergy status to penicillin; Z88.5 Allergy status to narcotic agent
CPT/HCPCS: 99284

== ENCOUNTER 2021-11-25 11:01 | Emergency (ER) | payer SELFPAY ==
--- OUTSIDE RECORDS SUMMARY | 2021-11-25 11:05 | XMS REPORT | Continuity of Care Document ---
:[address] [facility] t Address [address] [place] [address] Care Team Providers Name Role Phone PCP, DOES NOT HAVE A Primary Care Physician Unavailable Attending Clinician Unavailable Singer CAMEJO Attending Clinician Claudy BAUTISTA Attending Clinician Unavailable Claudy Bautista DO Attending Clinician Armand HALEY, H Attending Clinician Ramirez RIVERA, L Attending Clinician Unavailable Armando GREER Attending Clinician Unavailable Patricia IQBAL, Armando Attending Clinician Armando GREER Admitting Clinician Unavailable Payers Payer Name Policy Type Policy Number Effective Date Expiration Date [facility] [id number] 2016 CHOICE MEDICAID 00:00:00 Advance Directives Directive Decision Effective Termination Comments Source Date Date Healthcare Agents on N/A NPI: 1831 FileNameRelationshipHealthcare [id number] Agent RelationshipCommunicationJerred SkinnerSpouseHealth Care [phone] (Mobile) [email or web address] [email or web address] [facility] [phone] (Mobile) [email or web address] Problems Condition Condition Condition Status Onset Resolution Last Treating Co mments Source Name Details Category Date Date Treatment Clinician Date Encounter Encounter Disease Active NPI :183 for for 07-30 [id number] contracept contracept 00:00: cinthya cinthya 00 management management , , unspecifie unspecifie d type d type Asthma, Asthma, Disease Active NPI:183 unspecifie unspecifie 07-30 03882 d asthma d asthma 00:00: severity, severity, 00 unspecifie unspecifie d whether d whether complicate complicate d, d, unspecifie unspecifie d whether d whether persistent persistent Morbid Morbid Disease Active NPI:183 obesity obesity 07-30 [id number] 00:00: 00 BMI BMI Disease Active NPI:183 50.0-59.9, 50.0-59.9, 07-30 13886 adult adult 00:00: 00 Trichomoni Trichomoni Disease Active N PI:183 asis asis 11-12 [id number] 00:00: 00 Allergies, Adverse Reactions, Alerts Allergy Allergy Status Severity Reaction(s) Onset Inactive Treating Comm ents Source Name Type Date Date Clinician CODEINE DRUG Active Hives NPI:183 INGREDI 03-30 [id number] 00:00: 00 Codeine Propensi Active Hives NPI:183 ty to 03-30 [id number] adverse 00:00: reaction 00 s PENICILL Drug Active Hives NPI:183 INS Class 08-21 [id number] 00:00: 00 Penicill Propensi Active Swelling 2006- Pt NPI: 183 ins ty to 08-21 reports [id number] adverse 00:00: allergy reaction 00 as an s , but has recently taken amoxicill in without reaction. Penicill Propensi Active Swelling Pt NPI: 183 ins ty to 08-21 reports [id number] adverse 00:00: allergy reaction 00 as an s , but has recently taken amoxicill in without reaction. Social History Social Habit Start Date Stop Date Quantity Comments Source History of tobacco Cigarette Smoker use Exposure to 2021-11-03 2021-11-13 Not sure NPI:[id number] 1 SARS-CoV-2 (event) 00:00:00 07:51:00 Alcohol intake 2021-08-14 2021-08-14 0 /d NPI:[id number] 00:00:00 00:00:00 Cigarettes smoked 2016-02-02 2016-02-02 NPI:377 [id number] current (pack per 00:00:00 00:00:00 day) - Reported Cigarette 2016-02-02 2016-02-02 pack-years 00:00:00 00:00:00 Tobacco use and 2016-02-02 2016-02-02 Never used NPI:[id number] exposure 00:00:00 00:00:00 [birth year] NPI:[id number] 26652 00:00:00 00:00:00 Smoking Status Start Date Stop Date Source Current every day smoker 2016-02-02 00:00:00 NPI :[id number] Medications Ordered Filled Start Stop Current Ordering Indication Dosage Frequency Signature Comments Components Source Medication Medication Date Date Medication? Clinician (SIG) Name Name furosemide 2021- Yes [id number] Take 1 NPI:183 20 mg 4-25 07-25 tablet by [id number] tablet 00:00: 04:59 mouth 00 :00 every morning and evening for 5 days, THEN 1 tablet daily for 85 days. ondansetron 2020- No 4mg 4 mg, NPI: 183 (ZOFRAN-ODT 6- 06-11 Oral, [id number] 1 ) 06:15: 05:21 ONCE, 1 disintegrat 00 :00 dose, Fri ing tablet 12/30/20 at 4 mg 0115, Routine ondansetron Yes [id number] 4mg Take 1 NPI:183 (ZOFRAN 6-11 tablet by [id number] ODT) 4 mg 00:00: mouth disintegrat 00 every 8 ing tablet (eight) hours as needed for Nausea and Vomiting (N/V). ondansetron Yes [id number] 4mg Take 1 NPI:183 (ZOFRAN 6-11 tablet by [id number] ODT) 4 mg 00:00: mouth disintegrat 00 every 8 ing tablet (eight) hours as needed for Nausea and Vomiting (N/V). ondansetron Yes [id number] 4mg Take 1 NPI:183 (ZOFRAN 6-11 tablet by [id number] ODT) 4 mg 00:00: mouth disintegrat 00 every 8 ing tablet (eight) hours as needed for Nausea and Vomiting (N/V). ondansetron Yes [id number] 4mg Take 1 NPI:183 (ZOFRAN 6-11 tablet by [id number] ODT) 4 mg 00:00: mouth disintegrat 00 every 8 ing tablet (eight) hours as needed for Nausea and Vomiting (N/V). ondansetron 2020-0 Yes [id number] 4mg Take 1 NPI:183 (ZOFRAN 6-11 tablet by [id number] ODT) 4 mg 00:00: mouth disintegrat 00 every 8 ing tablet (eight) hours as needed for Nausea and Vomiting (N/V). ondansetron 2020-0 Yes [id number] 4mg Take 1 NPI:183 (ZOFRAN 6-11 tablet by [id number] ODT) 4 mg 00:00: mouth disintegrat 00 every 8 ing tablet (eight) hours as needed for Nausea and Vomiting (N/V). ondansetron 2020-0 Yes [id number] 4mg Take 1 NPI:183 (ZOFRAN 6-11 tablet by [id number] ODT) 4 mg 00:00: mouth disintegrat 00 every 8 ing tablet (eight) hours as needed for Nausea and Vomiting (N/V). chlorphenir 2021-0 Yes [id number] 4mg Take 1 NPI:183 amine 4 mg 5-18 tablet by 1318 781 tablet 00:00: mouth 00 every 6 (six) hours as needed for Allergies or Runny nose. methylPREDN 2021-0 Yes [id number] Take by NPI:183 ISolone 5-18 mouth [id number] (MEDROL, 00:00: SEE-INSTRU BERENICE,) 4 mg 00 CTIONS. tablets follow package directions chlorphenir 2021-0 Yes [id number] 4mg Take 1 NPI:183 amine 4 mg 5-18 tablet by 1318 781 tablet 00:00: mouth 00 every 6 (six) hours as needed for Allergies or Runny nose. methylPREDN 2021-0 Yes [id number] Take by NPI:183 ISolone 5-18 mouth [id number] (MEDROL, 00:00: SEE-INSTRU BERENICE,) 4 mg 00 CTIONS. tablets follow package directions chlorphenir 2021-0 Yes [id number] 4mg Take 1 NPI:183 amine 4 mg 5-18 tablet by 1318 781 tablet 00:00: mouth 00 every 6 (six) hours as needed for Allergies or Runny nose. methylPREDN 2021-0 Yes [id number] Take by NPI:183 ISolone 5-18 mouth [id number] (MEDROL, 00:00: SEE-INSTRU BERENICE,) 4 mg 00 CTIONS. tablets follow package directions chlorphenir 2021-0 Yes [id number] 4mg Take 1 NPI:183 amine 4 mg 5-18 tablet by 1318 781 tablet 00:00: mouth 00 every 6 (six) hours as needed for Allergies or Runny nose. methylPREDN 2021-0 Yes [id number] Take by NPI:183 ISolone 5-18 mouth [id number] (MEDROL, 00:00: SEE-INSTRU BERENICE,) 4 mg 00 CTIONS. tablets follow package directions chlorphenir 2021-0 Yes [id number] 4mg Take 1 NPI:183 amine 4 mg 5-18 tablet by 1318 781 tablet 00:00: mouth 00 every 6 (six) hours as needed for Allergies or Runny nose. methylPREDN 2021-0 Yes [id number] Take by NPI:183 ISolone 5-18 mouth [id number] (MEDROL, 00:00: SEE-INSTRU BERENICE,) 4 mg 00 CTIONS. tablets follow package directions chlorphenir 2021-0 Yes [id number] 4mg Take 1 NPI:183 amine 4 mg 5-18 tablet by 1318 781 tablet 00:00: mouth 00 every 6 (six) hours as needed for Allergies or Runny nose. methylPREDN 2021-0 Yes [id number] Take by NPI:183 ISolone 5-18 mouth [id number] (MEDROL, 00:00: SEE-INSTRU BERENICE,) 4 mg 00 CTIONS. tablets follow package directions chlorphenir 2021-0 Yes [id number] 4mg Take 1 NPI:183 amine 4 mg 5-18 tablet by 1318 781 tablet 00:00: mouth 00 every 6 (six) hours as needed for Allergies or Runny nose. methylPREDN 2021-0 Yes [id number] Take by NPI:183 ISolone 5-18 mouth [id number] (MEDROL, 00:00: SEE-INSTRU BERENICE,) 4 mg 00 CTIONS. tablets follow package directions chlorphenir 2021-0 Yes [id number] 4mg Take 1 NPI:183 amine 4 mg 5-18 tablet by 1318 781 tablet 00:00: mouth 00 every 6 (six) hours as needed for Allergies or Runny nose. methylPREDN Yes [id number] Take by NPI:183 ISolone 5-18 mouth [id number] (MEDROL, 00:00: SEE-INSTRU BERENICE,) 4 mg 00 CTIONS. tablets follow package directions clindamycin 2020- No [id number] 300mg Take 2 NPI:183 150 mg 5-18 05-26 capsules [id number] capsule 00:00: 04:59 by mouth 4 00 :00 (four) times daily for 7 days. diphenhydrA 2016-07 Yes 25mg Take 25 mg NPI:183 MINE 2-11 by mouth [id number] (BENADRYL 14:43: every 4 ALLERGY) 25 20 (four) mg tablet hours as needed for Allergies. BUDESONIDE2016-07 Yes Inhale. NPI :183 FORMOTEROL 2-11 [id number] FUMARATE 14:43: (SYMBICORT 20 INHALE) diphenhydrA 2016-07 Yes 25mg Take 25 mg NPI:183 MINE 2-11 by mouth [id number] (BENADRYL 14:43: every 4 ALLERGY) 25 20 (four) mg tablet hours as needed for Allergies. BUDESONIDE2016-07 Yes Inhale. NPI :183 FORMOTEROL 2-11 [id number] FUMARATE 14:43: (SYMBICORT 20 INHALE) diphenhydrA 2016-07 Yes 25mg Take 25 mg NPI:183 MINE 2-11 by mouth [id number] (BENADRYL 14:43: every 4 ALLERGY) 25 20 (four) mg tablet hours as needed for Allergies. BUDESONIDE2016-07 Yes Inhale. NPI :183 FORMOTEROL 2-11 [id number] FUMARATE 14:43: (SYMBICORT 20 INHALE) diphenhydrA 2016-07 Yes 25mg Take 25 mg NPI:183 MINE 2-11 by mouth [id number] (BENADRYL 14:43: every 4 ALLERGY) 25 20 (four) mg tablet hours as needed for Allergies. BUDESONIDE2016-07 Yes Inhale. NPI :183 FORMOTEROL 2-11 [id number] FUMARATE 14:43: (SYMBICORT 20 INHALE) diphenhydrA 2016-07 Yes 25mg Take 25 mg NPI:183 MINE 2-11 by mouth [id number] (BENADRYL 08:43: every 4 ALLERGY) 25 20 (four) mg tablet hours as needed for Allergies. BUDESONIDE/ 2016-07 Yes Inhale. NPI :183 FORMOTEROL 2-11 [id number] FUMARATE 08:43: (SYMBICORT 20 INHALE) diphenhydrA 2016-07 Yes 25mg Take 25 mg NPI:183 MINE 2-11 by mouth [id number] (BENADRYL 08:43: every 4 ALLERGY) 25 20 (four) mg tablet hours as needed for Allergies. BUDESONIDE/ 2016-07 Yes Inhale. NPI :183 FORMOTEROL 2-11 [id number] FUMARATE 08:43: (SYMBICORT 20 INHALE) diphenhydrA 2016-07 Yes 25mg Take 25 mg NPI:183 MINE 2-11 by mouth [id number] (BENADRYL 08:43: every 4 ALLERGY) 25 20 (four) mg tablet hours as needed for Allergies. BUDESONIDE/ 2016-07 Yes Inhale. NPI :183 FORMOTEROL 2-11 [id number] FUMARATE 08:43: (SYMBICORT 20 INHALE) diphenhydrA 2016-07 Yes 25mg Take 25 mg NPI:183 MINE 2-11 by mouth [id number] (BENADRYL 08:43: every 4 ALLERGY) 25 20 (four) mg tablet hours as needed for Allergies. BUDESONIDE2016-07 Yes Inhale. NPI :183 FORMOTEROL 2-11 [id number] FUMARATE 08:43: (SYMBICORT 20 INHALE) docusate 2016-07 Yes 240mg Take 1 NPI:18 3 calcium 240 1-21 capsule by 13 70260 mg capsule 00:00: mouth once 00 daily as needed for Constipati on. ferrous 2016-07 Yes 325mg Take 1 NPI:183 sulfate 325 1-21 tablet by 131 8781 mg (65 mg 00:00: mouth 2 iron) 00 (two) tablet times daily. ibuprofen 2016-07 Yes 600mg Take 1 NPI:1 83 600 mg 1-21 tablet by [id number] tablet 00:00: mouth 00 every 6 (six) hours as needed for Pain (scale 1-3) or Pain (scale 4-6) (Pain). Take with food or milk. docusate 2016-07 Yes 240mg Take 1 NPI:18 3 calcium 240 1-21 capsule by 13 11625 mg capsule 00:00: mouth once 00 daily as needed for Constipati on. ferrous 2016-07 Yes 325mg Take 1 NPI:183 sulfate 325 1-21 tablet by 131 8781 mg (65 mg 00:00: mouth 2 iron) 00 (two) tablet times daily. ibuprofen 2016-07 Yes 600mg Take 1 NPI:1 83 600 mg 1-21 tablet by [id number] tablet 00:00: mouth 00 every 6 (six) hours as needed for Pain (scale 1-3) or Pain (scale 4-6) (Pain). Take with food or milk. docusate 2016-07 Yes 240mg Take 1 NPI:18 3 calcium 240 1-21 capsule by 13 63141 mg capsule 00:00: mouth once 00 daily as needed for Constipati on. ferrous 2016-07 Yes 325mg Take 1 NPI:183 sulfate 325 1-21 tablet by 131 8781 mg (65 mg 00:00: mouth 2 iron) 00 (two) tablet times daily. ibuprofen 2016-07 Yes 600mg Take 1 NPI:1 83 600 mg 1-21 tablet by [id number] tablet 00:00: mouth 00 every 6 (six) hours as needed for Pain (scale 1-3) or Pain (scale 4-6) (Pain). Take with food or milk. docusate 2016-07 Yes 240mg Take 1 NPI:18 3 calcium 240 1-21 capsule by 13 45259 mg capsule 00:00: mouth once 00 daily as needed for Constipati on. ferrous 2016-07 Yes 325mg Take 1 NPI:183 sulfate 325 1-21 tablet by 131 8781 mg (65 mg 00:00: mouth 2 iron) 00 (two) tablet times daily. ibuprofen 2016-07 Yes 600mg Take 1 NPI:1 83 600 mg 1-21 tablet by [id number] tablet 00:00: mouth 00 every 6 (six) hours as needed for Pain (scale 1-3) or Pain (scale 4-6) (Pain). Take with food or milk. docusate 2016-07 Yes 240mg Take 1 NPI:18 3 calcium 240 1-21 capsule by 13 87409 mg capsule 00:00: mouth once 00 daily as needed for Constipati on. ferrous 2016-07 Yes 325mg Take 1 NPI:183 sulfate 325 1-21 tablet by 131 8781 mg (65 mg 00:00: mouth 2 iron) 00 (two) tablet times daily. ibuprofen 2016-07 Yes 600mg Take 1 NPI:1 83 600 mg 1-21 tablet by [id number] tablet 00:00: mouth 00 every 6 (six) hours as needed for Pain (scale 1-3) or Pain (scale 4-6) (Pain). Take with food or milk. docusate 2016-07 Yes 240mg Take 1 NPI:18 3 calcium 240 1-21 capsule by 13 90231 mg capsule 00:00: mouth once 00 daily as needed for Constipati on. ferrous 2016-07 Yes 325mg Take 1 NPI:183 sulfate 325 1-21 tablet by 131 8781 mg (65 mg 00:00: mouth 2 iron) 00 (two) tablet times daily. ibuprofen 2016-07 Yes 600mg Take 1 NPI:1 83 600 mg 1-21 tablet by [id number] tablet 00:00: mouth 00 every 6 (six) hours as needed for Pain (scale 1-3) or Pain (scale 4-6) (Pain). Take with food or milk. docusate 2016-07 Yes 240mg Take 1 NPI:18 3 calcium 240 1-21 capsule by 13 12982 mg capsule 00:00: mouth once 00 daily as needed for Constipati on. ferrous 2016-07 Yes 325mg Take 1 NPI:183 sulfate 325 1-21 tablet by 131 8781 mg (65 mg 00:00: mouth 2 iron) 00 (two) tablet times daily. ibuprofen 2016-07 Yes 600mg Take 1 NPI:1 83 600 mg 1-21 tablet by [id number] tablet 00:00: mouth 00 every 6 (six) hours as needed for Pain (scale 1-3) or Pain (scale 4-6) (Pain). Take with food or milk. docusate 2016-07 Yes 240mg Take 1 NPI:18 3 calcium 240 1-21 capsule by 13 37265 mg capsule 00:00: mouth once 00 daily as needed for Constipati on. ferrous 2016-07 Yes 325mg Take 1 NPI:183 sulfate 325 1-21 tablet by 131 8781 mg (65 mg 00:00: mouth 2 iron) 00 (two) tablet times daily. ibuprofen 2016-07 Yes 600mg Take 1 NPI:1 83 600 mg 1-21 tablet by [id number] tablet 00:00: mouth 00 every 6 (six) hours as needed for Pain (scale 1-3) or Pain (scale 4-6) (Pain). Take with food or milk. albuterol Yes [id number] 2.5mg Inhale 3 NPI:183 2.5 mg /3 9-13 103 mL every 4 1318 781 mL (0.083 00:00: (four) %) 00 hours as nebulizer needed for solution Wheezing or Shortness of Breath. albuterol Yes [id number] 2.5mg Inhale 3 NPI:183 2.5 mg /3 9-13 103 mL every 4 1318 781 mL (0.083 00:00: (four) %) 00 hours as nebulizer needed for solution Wheezing or Shortness of Breath. albuterol Yes [id number] 2.5mg Inhale 3 NPI:183 2.5 mg /3 9-13 103 mL every 4 1318 781 mL (0.083 00:00: (four) %) 00 hours as nebulizer needed for solution Wheezing or Shortness of Breath. albuterol Yes [id number] 2.5mg Inhale 3 NPI:183 2.5 mg /3 9-13 103 mL every 4 1318 781 mL (0.083 00:00: (four) %) 00 hours as nebulizer needed for solution Wheezing or Shortness of Breath. albuterol Yes [id number] 2.5mg Inhale 3 NPI:183 2.5 mg /3 9-13 103 mL every 4 1318 781 mL (0.083 00:00: (four) %) 00 hours as nebulizer needed for solution Wheezing or Shortness of Breath. albuterol Yes [id number] 2.5mg Inhale 3 NPI:183 2.5 mg /3 9-13 103 mL every 4 1318 781 mL (0.083 00:00: (four) %) 00 hours as nebulizer needed for solution Wheezing or Shortness of Breath. albuterol Yes [id number] 2.5mg Inhale 3 NPI:183 2.5 mg /3 9-13 103 mL every 4 1318 781 mL (0.083 00:00: (four) %) 00 hours as nebulizer needed for solution Wheezing or Shortness of Breath. albuterol Yes [id number] 2.5mg Inhale 3 NPI:183 2.5 mg /3 9-13 103 mL every 4 1318 781 mL (0.083 00:00: (four) %) 00 hours as nebulizer needed for solution Wheezing or Shortness of Breath. Immunizations Ordered Immunization Filled Immunization Date Status Commen ts Source Name Name TD 2017-03-26 Completed 00:00:00 TDAP 2017-03-26 Completed 00:00:00 TDAP 2017-03-26 Completed 00:00:00 TDAP 2017-03-26 Completed 00:00:00 TDAP 2017-03-26 Completed 00:00:00 TDAP 2017-03-26 Completed 00:00:00 TDAP 2017-03-26 Completed 00:00:00 TDAP 2017-03-26 Completed 00:00:00 Rubella 2009-03-29 Completed 00:00:00 Rubella 2009-03-29 Completed 00:00:00 Rubella 2009-03-29 Completed 00:00:00 Rubella 2009-03-29 Completed 00:00:00 Rubella 2009-03-29 Completed 00:00:00 Rubella 2009-03-29 Completed 00:00:00 Rubella 2009-03-29 Completed 00:00:00 Rubella 2009-03-29 Completed 00:00:00 Td 2008-07-22 Completed 00:00:00 Td 2008-07-22 Completed 00:00:00 Td 2008-07-22 Completed 00:00:00 Td 2008-07-22 Completed 00:00:00 Td 2008-07-22 Completed 00:00:00 Td 2008-07-22 Completed 00:00:00 Td 2008-07-22 Completed 00:00:00 Td 2008-07-22 Completed 00:00:00 Vital Signs Vital Name Observation Time Observation Value Comments Source Systolic blood pressure 2021-11-13 12:53:00 139 mm[Hg] Diastolic blood 2021-11-13 12:53:00 106 mm[Hg] NPI:1 [id number] pressure Heart rate 2021-11-13 12:53:00 100 /min NPI:1831 [id number] Body temperature 2021-11-13 12:53:00 37.17 Ysabel Respiratory rate 2021-11-13 12:53:00 18 /min Body height 2021-11-13 12:53:00 167.6 cm NPI:1831 [id number] Body weight 2021-11-13 12:53:00 147.419 kg NPI:1831 [id number] BMI 2021-11-13 12:53:00 52.46 kg/m2 NPI:1831 [id number] Oxygen saturation in 2021-11-13 12:53:00 98 /min Arterial blood by Pulse oximetry Systolic blood pressure 2021-08-14 13:32:00 136 mm[Hg] Diastolic blood 2021-08-14 13:32:00 94 mm[Hg] NPI:1 [id number] pressure Heart rate 2021-08-14 13:32:00 89 /min NPI:1831 924310 Body temperature 2021-08-14 13:32:00 36.83 Ysabel Respiratory rate 2021-08-14 13:32:00 22 /min Body weight 2021-08-14 13:32:00 147.419 kg NPI:1831 604813 BMI 2021-08-14 13:32:00 52.46 kg/m2 NPI:1831 [id number] Oxygen saturation in 2021-08-14 13:32:00 98 /min Arterial blood by Pulse oximetry Systolic blood pressure 2021-03-17 14:51:00 123 mm[Hg] Diastolic blood 2021-03-17 14:51:00 87 mm[Hg] NPI:1 [id number] pressure Heart rate 2021-03-17 14:51:00 92 /min NPI:1831 508519 Body temperature 2021-03-17 14:51:00 37.11 Ysabel Respiratory rate 2021-03-17 14:51:00 20 /min Body weight 2021-03-17 14:51:00 152.409 kg NPI:1831 070291 BMI 2021-03-17 14:51:00 54.23 kg/m2 NPI:1831 288311 Oxygen saturation in 2021-03-17 14:51:00 98 /min Arterial blood by Pulse oximetry Systolic blood pressure 2020-12-30 06:00:00 150 mm[Hg] Diastolic blood 2020-12-30 06:00:00 91 mm[Hg] NPI:1 [id number] pressure Heart rate 2020-12-30 06:00:00 93 /min NPI:1831 324195 Respiratory rate 2020-12-30 06:00:00 18 /min Oxygen saturation in 2020-12-30 06:00:00 97 /min Arterial blood by Pulse oximetry Body temperature 2020-12-30 05:07:00 37.22 Ysabel Body height 2020-12-30 05:07:00 167.6 cm NPI:1831 993142 Body weight 2020-12-30 05:07:00 136.079 kg NPI:1831 773182 BMI 2020-12-30 05:07:00 48.42 kg/m2 NPI:1831 071993 Systolic blood pressure 2020-12-06 18:13:00 152 mm[Hg] Diastolic blood 2020-12-06 18:13:00 86 mm[Hg] NPI:1 [id number] pressure Heart rate 2020-12-06 18:13:00 99 /min NPI:1831 335368 Body temperature 2020-12-06 18:13:00 37.22 Ysabel Respiratory rate 2020-12-06 18:13:00 18 /min Body weight 2020-12-06 18:13:00 148.78 kg NPI:1831 979022 BMI 2020-12-06 18:13:00 52.94 kg/m2 NPI:1831 664550 Oxygen saturation in 2020-12-06 18:13:00 97 /min Arterial blood by Pulse oximetry Procedures Procedure Date / Time Performed Performing Clinician Sour e CONSENT/REFUSAL FOR 2021-08-14 13:27:19 Doctor Unassigned, No 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 METABOLIC PANEL 2021-03-17 17:54:00 James Greer NPI:1 [id number] ([id number]) CBC WITH DIFF 2021-03-17 17:54:00 James Greer NPI:[id number] N-TERMINAL PRO-BNP 2021-03-17 17:54:00 James Greer NPI:1831 [id number] XR ANKLE 3+ VW BILATERAL 2021-03-17 15:53:14 James Greer PARTS ASSEMBLER I:[id number] POCT TEST 2020-12-30 05:18:00 Nancy Bautista NPI:1 [id number] CONSENT/REFUSAL FOR 2020-12-30 04:59:10 Doctor Unassigned, No PARTS ASSEMBLER I:[id number] DIAGNOSIS AND TREATMENT Name NOTICE OF PRIVACY 2020-12-06 18:07:34 Doctor Unassigned, No PRACTICES Name CONSENT/REFUSAL FOR 2020-12-06 18:07:14 Doctor Unassigned, No PARTS ASSEMBLER I:[id number] DIAGNOSIS AND TREATMENT Name Encounters Start End Encounter Admission Attending Care Care Encounter Source Date/Time Date/Time Type Type Clinicians Facility Department ID 2021-05-22 Emergency [facility] [id number] NPI:183 00:33:34 [id number] Emergency [facility] [id number] NPI:183 19:47:48 [id number] 0773-04-25 2021-11-13 [facility] [id number] NPI:183 07:54:00 08:21:00 JEAN-CLAUDE [id number] 1 2021-11-13 2021-11-13 [facility] [id number] NPI:183 07:54:00 08:21:00 Jean-Claude DEVI [id number] [place] [address] 4.2.7.2.686 [place] [id number] 2021-08-14 2021-08-14 [facility] [id number] NPI:183 07:35:00 08:08:00 NANCY [id number] 1 2021-08-14 2021-08-14 [facility] [id number] NPI:183 07:35:00 08:08:00 Nancy DEVI 350.1.13.10 [id number] [place] 4.2.7.2.686 [place] [id number] 2021-08-14 2021-08-14 Letter JAHAIRA Acuna [id number] NPI:183 00:00:00 00:00:00 (Out) Ace [address] 350.1.13.10 1 [id number] [place] [id number] 2021-08-14 2021-08-14 Telephone JAHAIRA Guzmán [id number] NPI:183 00:00:00 00:00:00 [address]13[id number] [id number] [id number] 2021-03-17 2021-03-17 Emergency [facility] [id number] NPI:183 09:53:00 13:52:00 JAMES [id number] 2021-03-17 2021-03-17 Emergency Patricia, [facility] [id number] NPI:183 09:53:00 13:52:00 James Devi 350.1.13.10 1 [id number] [place] 4.[address].7.[address] [id number] 2020-12-30 2020-12-30 [facility] [id number] NPI:183 00:00:00 01:28:00 Nancy Devi 350.1.13.10 [id number] [place] 4.2.7.[address] [id number] [id number] 2020-12-06 2020-12-06 [facility] [id number] NPI:183 13:17:00 14:49:00 Jean-Claude Devi 350.1.13.10 1 [id number] [place] 4.2.7.2.686 [place] [address] [id number] [id number] Results Test Description Test Time Test Comments Results Result Comments Source N-TERMINAL PRO-BNP 2021-03-17 18:22:39 Test Item Value Reference Range Interpretation Comme nts NT-proBNP (test code = 71 pg/mL See_Comment [Aut omated message] The [id number]) system which ge nerated this result tra nsmitted reference range : <=125. The reference r sammy was not used to int erpret this result as kimani l/abnormal. LORRAINE (test code = LORRAINE) Biotin has been reported to cause a negative bias, interpret results relative to patient's use of biotin. Lab Interpretation (test Normal code = 48817-2) NPI:[id number] 18:22:39 Test Item Value Reference Range Interpretation Comments NT-proBNP (test code = 71 pg/mL See_Comment [Aut omated message] [id number]) The system [employer] h generated this result transmitted ref erence range: <=125. T he reference range was not used to int erpret this result as normal/abnormal . LORRAINE (test code = LORRAINE) Lab Interpretation (test Normal code = 29062-5) NPI:[id number]. METABOLIC PANEL (34243)2021-03-17 18:14:00 Test Item Value Reference Range Interpretation Comments NA (test code = 139 mmol/L 135-145 [id number]) K (test code = 4.0 mmol/L 3.5-5.0 9777686329) CL (test code = 103 mmol/L 98-108 5980407640) CO2 TOTAL (test code 30 mmol/L 23-31 = 1248698508) AGAP (test code = 2-16 9144121117) BUN (test code = 10 mg/dL 7-23 7204888765) GLUCOSE (test code = 86 mg/dL 70-110 9764882837) CREATININE (test code 0.74 mg/dL 0.50-1.04 = 4016987231) TOTAL BILI (test code 0.4 mg/dL 0.1-1.1 = 2618047217) CALCIUM (test code = 9.7 mg/dL 8.6-10.6 9826036285) T PROTEIN (test code 8.1 g/dL 6.3-8.2 = 6071696697) ALBUMIN (test code = 4.4 g/dL 3.5-5.0 4219719227) ALK PHOS (test code = 95 U/L 34-122 1142628669) ALTv (test code = 30 U/L 5-35 1742-6) AST(SGOT) (test code 31 U/L 13-40 = 1572633945) eGFR (test code = mL/min/1.73m2 [id number]) LORRAINE (test code = LORRAINE) Association of Glomerular Filtration Rate (GFR) and Staging of Kidney Disease* + + +- +| GFR (mL/min/1.73 m2) ?| With Kidney Damage ?| ?Without Kidney Damage+ ------+ ----+ ------+| ?>90 ?| ?Stage one ?| ? Normal ?+ -+ + -+| ?60-89 ?| ?Stage two ?| ? Decreased GFR ? + + +- +| ?30-59 ?| ?Stage three ?| ? Stage three ? + + +- +| ?15-29 ?| ?Stage four ? | ? Stage four ?+ -+ + -+| ?<15 (or dialysis) ? ?| ?Stage five ? | ? Stage five ?+ -+ + -+ *Each stage assumes the associated GFR level has been in effect for at least three months. ?Stages 1 to 5, with or without kidney disease, indicate chronic kidney disease. Notes: Determination of stages one and two (with eGFR >59mL/min/1.73 m2) requires estimation of kidney damage for at least three months as defined by structural or functional abnormalities of the kidney, manifested by either:Pathological abnormalities or Markers of kidney damage (including abnormalities in the composition of the blood or urine or abnormalities in imaging tests). NPI:[id number]. METABOLIC PANEL ([id number])2021-03-17 18:14:00 Test Item Value Reference Range Interpretation Comments NA (test code = 4552605593) 139 mmol/L 135-145 K (test code = 9805467956) 4.0 mmol/L 3.5-5.0 CL (test code = 4178143366) 103 mmol/L 98-108 CO2 TOTAL (test code = 7870891460) 30 mmol/L 23-31 AGAP (test code = 5713173838) 2-16 BUN (test code = 9016178338) 10 mg/dL 7-23 GLUCOSE (test code = 3055360448) 86 mg/dL 70-110 CREATININE (test code = 0.74 mg/dL 0.50-1.04 1406728707) TOTAL BILI (test code = 0.4 mg/dL 0.1-1.1 0026484048) CALCIUM (test code = 4617318974) 9.7 mg/dL 8.6-10.6 T PROTEIN (test code = 7040498098) 8.1 g/dL 6.3-8.2 ALBUMIN (test code = 4396311953) 4.4 g/dL 3.5-5.0 ALK PHOS (test code = 1555723201) 95 U/L 34-122 ALTv (test code = 1742-6) 30 U/L 5-35 AST(SGOT) (test code = 7803170245) 31 U/L 13-40 eGFR (test code = 7437197650) mL/min/1.73m2 LORRAINE (test code = LORRAINE) NPI:[id number] WITH [id number] 18:03:33 Test Item Value Reference Range Interpretation Comments WBC (test code = See_Comment [Automated message] 6690-2) The system [employer] generated this result transmitted ref erence range: 4.30 - 1 1.10 10*3/?L. The re ference range was not u sed to interpret this result as normal/abnor mal. RBC (test code = See_Comment [Automated message] 789-8) The system [employer] generated this result transmitted ref erence range: 3.93 - 5 .25 10*6/?L. The re ference range was not u sed to interpret this result as normal/abnor mal. HGB (test code = 13.7 g/dL 11.6-15.0 718-7) HCT (test code = 42.8 % 35.7-45.2 4544-3) MCV (test code = 89.7 fL 80.6-95.5 787-2) MCH (test code = 28.7 pg 25.9-32.8 785-6) MCHC (test code = 32.0 g/dL 31.6-35.1 786-4) RDW-SD (test code 45.8 fL 39.0-49.9 = 92687-3) RDW-CV (test code 14.0 % 12.0-15.5 = 788-0) PLT (test code = See_Comment [Automated message] 487-3) The system [employer] generated this result transmitted ref erence range: 166 - 35 8 10*3/?L. The re ference range was not u sed to interpret this result as normal/abnor mal. MPV (test code = 10.3 fL 9.5-12.9 93782-1) NRBC/100 WBC (test See_Comment [Automat ed message] code = 9369578643) The [employer] which generated this result transmitted ref erence range: 0.0 - 10 .0 /100 WBCs. The refer ence range was not u sed to interpret this result as normal/abnor mal. NRBC x10^3 (test <0.01 See_Comment [Automated message] code = 8783393963) The [employer] which generated this result transmitted ref erence range: 10*3/?L. The reference range was not used to interpr et this result as normal/abnormal . GRAN MAT (NEUT) % 72.2 % (test code = 770-8) IMM GRAN % (test 0.30 % code = 8530543085) LYMPH % (test code 20.1 % = 736-9) MONO % (test code 5.5 % = 5905-5) EOS % (test code = 1.4 % 713-8) BASO % (test code 0.5 % = 706-2) GRAN MAT 6.69 10*3/uL 1.88-7.09 x10^3(ANC) (test code = 0191121258) IMM GRAN x10^3 0.03 10*3/uL 0.00-0.06 (test code = 6833296801) LYMPH x10^3 (test 1.86 10*3/uL 1.32-3.29 code = 731-0) MONO x10^3 (test 0.51 10*3/uL 0.33-0.92 code = 742-7) EOS x10^3 (test 0.13 10*3/uL 0.03-0.39 code = 711-2) BASO x10^3 (test 0.05 10*3/uL 0.01-0.07 code = 704-7) NPI:[id number] WITH [id number] 18:03:33 Test Item Value Reference Range Interpretation Comments WBC (test code = See_Comment [Automated message] 6690-2) The system [employer] generated this result transmitted ref erence range: 4.30 - 1 1.10 10*3/?L. The re ference range was not u sed to interpret this result as normal/abnor mal. RBC (test code = See_Comment [Automated message] 789-8) The system [employer] generated this result transmitted ref erence range: 3.93 - 5 .25 10*6/?L. The re ference range was not u sed to interpret this result as normal/abnor mal. HGB (test code = 13.7 g/dL 11.6-15.0 718-7) HCT (test code = 42.8 % 35.7-45.2 4544-3) MCV (test code = 89.7 fL 80.6-95.5 787-2) MCH (test code = 28.7 pg 25.9-32.8 785-6) MCHC (test code = 32.0 g/dL 31.6-35.1 786-4) RDW-SD (test code 45.8 fL 39.0-49.9 = 54999-8) RDW-CV (test code 14.0 % 12.0-15.5 = 788-0) PLT (test code = See_Comment [Automated message] 777-3) The system [employer] generated this result transmitted ref erence range: 166 - 35 8 10*3/?L. The re ference range was not u sed to interpret this result as normal/abnor mal. MPV (test code = 10.3 fL 9.5-12.9 52865-1) NRBC/100 WBC (test See_Comment [Automat ed message] code = 6262797720) The syste m which generated this result transmitted ref erence range: 0.0 - 10 .0 /100 WBCs. The refer ence range was not u sed to interpret this result as normal/abnor mal. NRBC x10^3 (test <0.01 See_Comment [Automated message] code = 6527762253) The syste m which generated this result transmitted ref erence range: 10*3/?L. The reference range was not used to interpr et this result as normal/abnormal . GRAN MAT (NEUT) % 72.2 % (test code = 770-8) IMM GRAN % (test 0.30 % code = 5230452111) LYMPH % (test code 20.1 % = 736-9) MONO % (test code 5.5 % = 5905-5) EOS % (test code = 1.4 % 713-8) BASO % (test code 0.5 % = 706-2) GRAN MAT 6.69 10*3/uL 1.88-7.09 x10^3(ANC) (test code = 8383018983) IMM GRAN x10^3 0.03 10*3/uL 0.00-0.06 (test code = 1519008472) LYMPH x10^3 (test 1.86 10*3/uL 1.32-3.29 code = 731-0) MONO x10^3 (test 0.51 10*3/uL 0.33-0.92 code = 742-7) EOS x10^3 (test 0.13 10*3/uL 0.03-0.39 code = 711-2) BASO x10^3 (test 0.05 10*3/uL 0.01-0.07 code = 704-7) NPI:[id number] ANKLE 3+ VW [id number] 16:43:38 Severe soft tissue swelling which may be seen with dependent edema andright-sided heart failure or cellulitis. No acute bony abnormalities. EXAM: XR ANKLE 3+ VW BILATERAL HISTORY: ankle pain, swelling COMPARISON: None FINDINGS: Imaging of the left and right ankle demonstrate severe diffuse swelling.The ankle mortise is anatomic.No acute bony abnormality is present. Noaggressive bony destructive change or periosteal reaction is seen. 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 [facility] Inft User - 03/17/2021 11:44 AM CDT EXAM:XR ANKLE 3+ VW BILATERALHISTORY:ankle pain, s welling COMPARISON:NoneFINDINGS: Imaging of the left and right ankle demonstrate severe diffuse swelling.The ankle mortise is anatomic.No acute bony abnormality is present. Noaggressive bony destructive change or periosteal reaction is seen. Osseousremodeling is seen along the posterior and medial subtalar joint marginswith corticated fragmentation which may be secondary to extra- articularposterior medial talocalcaneal fibrous coalition.IMPRESSIONSevere soft tissue swelling which may be seen with dependent edema andright-sided heart failure or cellulitis.No acute bony abnormalities.NPI:[id number] ANKLE 3+ VW [id number] 16:43:38 Severe soft tissue swelling which may be seen with dependent edema andright-sided heart failure or cellulitis. No acute bony abnormalities. EXAM: XR ANKLE 3+ VW BILATERAL HISTORY: ankle pain, swelling COMPARISON: None FINDINGS: Imaging of the left and right ankle demonstrate severe diffuse swelling.The ankle mortise is anatomic.No acute bony abnormality is present. Noaggressive bony destructive change or periosteal reaction is seen. 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 [facility], Radiant Results Inft User - 03/17/2021 11:44 AM CDT EXAM:XR ANKLE 3+ VW BILATERALHISTORY:ankle pain, swelling COMPARISON:NoneFINDINGS: Imaging of the left and right ankle demonstrate severe diffuse swelling.The ankle mortise is anatomic.No acute bony abnormality is present. Noaggressive bony destructive change or periosteal reaction is seen. Osseousremodeling is seen along the posterior and medial subtalar joint marginswith corticated fragmentation which may be secondary to extra- articularposterior medial talocalcaneal fibrous coalition.IMPRESSIONSevere soft tissue swelling which may be seen with dependent edema andright-sided heart failure or cellulitis.No acute bony abnormalities.NPI:[id number] 05:18:00 Test Item Value Reference Range Interpretation Comments POCT PREG (test code = 1605) negative On board controls acceptable with present C Line (test code = 3574) POCT PREG LOT # (test code = 3575) [id number] POCT PREG TEST DATE (test 06/20/2022 code = 3576) Lab Interpretation (test code = Normal 71950-9) "
--- NOTE | 2021-11-25 13:26 | EDPHYS ---
Physician Documentation [facility] Name: More Bustillo Age: 36 yrs Sex: Female : 1985 Arrival Date: 11/25/2021 Time: 11:03 Bed 12 Private MD: GUILHERME Physician Ezequiel Sutton HPI: 11/25 13:15 This 36 yrs old Female presents to ER via Ambulatory with complaints of derrell Cough, Congestion. 13:15 The patient or guardian reports cough, flu symptoms, arthralgias, myalgias. Onset: The derrell symptoms/episode began/occurred 3 day(s) ago. Historical: - Allergies: 11:43 Codeine; ss 11:43 PENICILLINS; ss - PMHx: 11:43 Asthma; seasonal allergies; ss - Immunization history:: Adult Immunizations up to date. - Social history:: Smoking status: Patient reports the use of cigarette tobacco products, smokes one-half pack cigarettes per day. ROS: 13:19 Constitutional: Negative for fever, chills, and weight loss, Eyes: Negative for injury, derrell pain, redness, and discharge, ENT: Negative for injury, pain, and discharge, Neck: Negative for injury, pain, and swelling, Cardiovascular: Negative for chest pain, palpitations, and edema, Abdomen/GI: Negative for abdominal pain, nausea, vomiting, diarrhea, and constipation, Back: Negative for injury and pain, : Negative for injury, bleeding, discharge, and swelling, MS/Extremity: Negative for injury and deformity, Skin: Negative for injury, rash, and discoloration, Neuro: Negative for headache, weakness, numbness, tingling, and seizure. 13:19 Respiratory: Positive for cough, wheezing, expiratory. Exam: 13:19 Constitutional: This is a well developed, well nourished patient who is awake, alert, derrell and in no acute distress. Head/Face: Normocephalic, atraumatic. Eyes: Pupils equal round and reactive to light, extra-ocular motions intact. Lids and lashes normal. Conjunctiva and sclera are non-icteric and not injected. Cornea within normal limits. Periorbital areas with no swelling, redness, or edema. ENT: Nares patent. No nasal discharge, no septal abnormalities noted. Tympanic membranes are normal and external auditory canals are clear. Oropharynx with no redness, swelling, or masses, exudates, or evidence of obstruction, uvula midline. Mucous membranes moist. Neck: Trachea midline, no thyromegaly or masses palpated, and no cervical lymphadenopathy. Supple, full range of motion without nuchal rigidity, or vertebral point tenderness. No Meningismus. Chest/axilla: Normal chest wall appearance and motion. Nontender with no deformity. No lesions are appreciated. Cardiovascular: Regular rate and rhythm with a normal S1 and S2. No gallops, murmurs, or rubs. Normal PMI, no JVD. No pulse deficits. Abdomen/GI: Soft, non-tender, with normal bowel sounds. No distension or tympany. No guarding or rebound. No evidence of tenderness throughout. Back: No spinal tenderness. No costovertebral tenderness. Full range of motion. Female : Normal external genitalia. Skin: Warm, dry with normal turgor. Normal color with no rashes, no lesions, and no evidence of cellulitis. MS/ Extremity: Pulses equal, no cyanosis. Neurovascular intact. Full, normal range of motion. Neuro: Awake and alert, GCS 15, oriented to person, place, time, and situation. Cranial nerves II-XII grossly intact. Motor strength 5/5 in all extremities. Sensory grossly intact. Cerebellar exam normal. Normal gait. Psych: Awake, alert, with orientation to person, place and time. Behavior, mood, and affect are within normal limits. 13:19 Respiratory: mild respiratory distress is noted, Respirations: labored breathing, that is mild, Breath sounds: bronchial sounds, rhonchi, that are mild, Respiratory rate: cough and congested ,, no chest pain 13:19 Musculoskeletal/extremity: DVT Exam: No signs of deep vein thrombosis. no pain, no swelling, no tenderness, negative Homans' sign noted on exam, no appreciated bluish discoloration, no erythema, no increased warmth. Vital Signs: 11:42 Resp 18; Weight 148.78 kg; Height 5 ft. 6 in. (167.64 cm); Pain 4/10; ss 11:42 Temp 97.8(TE); ss 11:43 BP 144 / 81; Pulse 96; Temp 97.8(TE); Pulse Ox 99% on R/A; ss 11:42 Body Mass Index 52.94 (148.78 kg, 167.64 cm) ss MDM: 11:55 Patient medically screened. derrell 13:21 Differential diagnosis: bronchitis, flu. Antibiotic administration: The patient is derrell discharged and will get outpatient antibiotics, Zithromax. Differential Diagnosis: Bronchitis Influenza Upper Respiratory Infection Sinusitis Pharyngitis Asthma Exacerbation Viral Syndrome Pneumonia. Data reviewed: vital signs, nurses notes, lab test result(s). 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 Counseling: I had a detailed discussion with the patient and/or guardian regarding: the historical points, exam findings, and any diagnostic results supporting the discharge/admit diagnosis, lab results, radiology results, the need for outpatient follow up, for definitive care, 11/25 12:29 Order name: COVID-19/FLU A+B (Document "Date of Onset" if Symptomatic) ss Administered Medications: 13:35 Drug: Aspirin Chewable Tablet 162 mg Route: PO; ss 13:43 Follow up: Response: No adverse reaction ss 13:35 Drug: Zithromax (azithromycin) 500 mg Route: PO; ss 13:43 Follow up: Response: No adverse reaction ss 13:35 Drug: predniSONE 60 mg Route: PO; ss 13:43 Follow up: Response: No adverse reaction ss Disposition Summary: 11/25/21 13:25 Discharge Ordered Location: Home derrell Problem: new derrell Symptoms: have improved derrell Condition: Stable derrell Diagnosis - Bronchitis, not specified as acute or chronic derrell - Cough derrell - Tobacco abuse counseling derrell - Tobacco use derrell Followup: derrell - With: Private Physician - When: 2 - 3 days - Reason: Recheck today's complaints, Re-evaluation by your physician Followup: derrell - With: Micheal Bridges MD - When: 2 - 3 days - Reason: Recheck today's complaints, Re-evaluation by your physician Discharge Instructions: - Discharge Summary Sheet derrell - Acute Bronchitis, Adult derrell - Chronic Bronchitis, Adult derrell - Steps to Quit Smoking derrell - Health Risks of Smoking derrell - Upper Respiratory Infection, Adult derrell - Cool Mist Vaporizer derrell - Cough, Adult, [id number] derrell - Cough, Adult derrell - Aspirin and Your Heart derrell Forms: - Medication Reconciliation Form derrell - Thank You Letter derrell - Antibiotic Education derrell - Prescription Opioid Use derrell - Work release form eb Prescriptions: - Prednisone 20 mg Oral Tablet - take 2 tablets by ORAL route once daily for 5 days; 10 tablet; Refills: 0, derrell Product Selection Permitted - Zithromax 500 mg Oral Tablet - take 1 tablet by ORAL route once daily for 5 days; 5 tablet; Refills: 0, derrell Product Selection Permitted - Bromfed DM 2-30-10 mg/5 mL Oral syrup - take 7.5 milliliter by ORAL route every 6 hours; 160 milliliter; Refills: 0, cp Product Selection Permitted - albuterol sulfate 90 mcg/actuation Inhalation HFA aerosol inhaler - inhale 2 puff by INHALATION route every 4 hours; 1 Pump; Refills: 0, Product cp Selection Permitted Signatures: Dispatcher [employer] EDEzequiel Sams MD MD cha Smirch, Shelby, MIGUEL RN ss
--- NOTE | 2021-11-25 13:26 | ER ---
Nurse's Notes [facility] Name: More Bustillo Age: 36 yrs Sex: Female : 1985 Arrival Date: 11/25/2021 Time: 11:03 Bed 12 Private MD: Diagnosis: Bronchitis, not specified as acute or chronic;Cough;Tobacco abuse counseling;Tobacco use Presentation: 11/25 11:42 Chief complaint: Patient states: stuffy nose, congestion, headache that began 2 days ss ago. Denies fever. Coronavirus screen: Client presents with at least one sign or symptom that may indicate coronavirus-19. Standard/surgical mask placed on the client. Ebola Screen: Patient denies exposure to infectious person. Patient denies travel to an Ebola-affected area in the 21 days before illness onset. Initial Sepsis Screen: Does the patient meet any 2 criteria? No. Patient's initial sepsis screen is negative. Does the patient have a suspected source of infection? No. Patient's initial sepsis screen is negative. Risk Assessment: Do you want to hurt yourself or someone else? Patient reports no desire to harm self or others. Onset of symptoms was November 23, 2021. 11:42 Method Of Arrival: Ambulatory ss 11:42 Acuity: CHAD 4 ss Historical: - Allergies: 11:43 Codeine; ss 11:43 PENICILLINS; ss - PMHx: 11:43 Asthma; seasonal allergies; ss - Immunization history:: Adult Immunizations up to date. - Social history:: Smoking status: Patient reports the use of cigarette tobacco products, smokes one-half pack cigarettes per day. Screenin:40 Abuse screen: Denies threats or abuse. Denies injuries from another. Nutritional ss screening: No deficits noted. Tuberculosis screening: Never had TB. Fall Risk None identified. Assessment: 12:15 General: Appears in no apparent distress. comfortable, Behavior is calm, cooperative, ss Denies fever, chills. Neuro: Level of Consciousness is awake, alert, obeys commands, Oriented to person, place, time, situation, Speech is normal, Facial symmetry appears normal. Cardiovascular: Capillary refill < 3 seconds is brisk in bilateral fingers. Respiratory: Airway is patent Respiratory effort is even, unlabored, Respiratory pattern is regular, symmetrical, Breath sounds are clear bilaterally. Respiratory: Reports cough that is. GI: Patient currently denies diarrhea, nausea, vomiting. : No signs and/or symptoms were reported regarding the genitourinary system. Derm: Skin is intact, is healthy with good turgor, Skin is dry, Skin is pink, warm \T\ dry. normal. Musculoskeletal: Circulation, motion, and sensation intact. Range of motion: intact in all extremities, Swelling absent. 13:40 Reassessment: Patient appears in no apparent distress at this time. Patient and/or ss family updated on plan of care and expected duration. Pain level reassessed. Patient is alert, oriented x 3, equal unlabored respirations, skin warm/dry/pink. Vital Signs: 11:42 Resp 18; Weight 148.78 kg; Height 5 ft. 6 in. (167.64 cm); Pain 4/10; ss 11:42 Temp 97.8(TE); ss 11:43 BP 144 / 81; Pulse 96; Temp 97.8(TE); Pulse Ox 99% on R/A; ss 11:42 Body Mass Index 52.94 (148.78 kg, 167.64 cm) ED Course: 11:03 Patient arrived in ED. mr 11:38 Ezequiel Sutton MD is Attending Physician. [facility] 11:43 Triage completed. 11:43 Arm band placed on right wrist. 13:25 Micheal Bridges MD is Referral Physician. [facility] 13:28 Natalie Mayfield, MIGUEL is Primary Nurse. 13:40 Patient has correct armband on for positive identification. Bed in low position. Call ss light in reach. 13:40 No provider procedures requiring assistance completed. Patient did not have IV access ss during this emergency room visit. Administered Medications: 13:35 Drug: Aspirin Chewable Tablet 162 mg Route: PO; 13:43 Follow up: Response: No adverse reaction 13:35 Drug: Zithromax (azithromycin) 500 mg Route: PO; 13:43 Follow up: Response: No adverse reaction 13:35 Drug: predniSONE 60 mg Route: PO; 13:43 Follow up: Response: No adverse reaction Outcome: 13:25 Discharge ordered by . derrell 13:40 Discharged to home ambulatory. 13:40 Condition: good 13:40 Discharge instructions given to patient, Instructed on discharge instructions, follow up and referral plans. Demonstrated understanding of instructions, follow-up care, Prescriptions given X 4. 13:43 Patient left the ED. ss Signatures: Ezequiel Sutton MD MD [facility] Natalie Cramer, RN RN ss
[2021-11-25] MEDS ORDERED: predniSONE 20 MG TAB ONE (13:38)
[2021-11-25] MEDS ORDERED: AZITHROMYCIN 250 MG TAB ONE (13:38)
[2021-11-25] MEDS ORDERED: ASPIRIN EC 81 MG TAB PO ONE (13:38)
[2021-11-25 13:45] LABS: SARS-COV-2 RT PCR NEGATIVE (NEGATIVE)
[2021-11-25 14:47] VITALS: TEMP 97.8
[2021-11-25 14:48] VITALS: BP 144/81; O2SAT 99
== END 2021-11-25 13:43 | disposition home or self-care (01) ==
LOC: ER 11:01
DX: J40 Bronchitis, not specified as acute or chronic (principal); Z72.0 Tobacco use; Z71.6 Tobacco abuse counseling; Z88.0 Allergy status to penicillin; Z88.5 Allergy status to narcotic agent; Z20.822 Contact with and (suspected) exposure to COVID-19
CPT/HCPCS: 0240U; 99283; J7512

== ENCOUNTER 2022-01-10 21:47 | Emergency (ER) | payer SELFPAY ==
--- OUTSIDE RECORDS SUMMARY | 2022-01-10 21:51 | XMS REPORT | Continuity of Care Document ---
:1985 Author Organization [facility] t Address [address] [place] [address] Care Team Providers Name Role Phone PCP, DOES NOT HAVE A Primary Care Physician Unavailable Attending Clinician Unavailable Singer CAMEJO Attending Clinician Claudy BAUTISTA Attending Clinician Unavailable Claudy Bautista DO Attending Clinician Armand HALEY, H Attending Clinician Ramirez RIVERA, L Attending Clinician Unavailable Armando GREER Attending Clinician Unavailable Zoey IQBAL, Armando Attending Clinician Armando GREER Admitting Clinician Unavailable Payers Payer Name Policy Type Policy Number Effective Date Expiration Date [facility] [id number] 2016 [facility] MEDICAID 00:00:00 Problems Condition Condition Condition Status Onset Resolution Last Treating Co mments Source Name Details Category Date Date Treatment Clinician Date Encounter Encounter Disease Active Uni vers for for 07-30 [place] cinthya cinthya 00 Medical management management Br anch , , unspecifie unspecifie d type d type Asthma, Asthma, Disease Active Univers unspecifie unspecifie 07-30 it y of d asthma d asthma 00:00: [place] severity, severity, 00 Medi vahe unspecifie unspecifie Br anch d whether d whether complicate complicate d, d, unspecifie unspecifie d whether d whether persistent persistent Morbid Morbid Disease Active Univers obesity obesity 07-30 ity of 00:00: [place] [facility] BMI BMI Disease Active Univers 50.0-59.9, 50.0-59.9, 1-09 it y of adult adult 00:00: [place] 00 Medical Branch Trichomoni Trichomoni Disease Active U nivers asis asis 4-24 ity of 00:00: [place] 00 [facility] Branch Allergies, Adverse Reactions, Alerts Allergy Allergy Status Severity Reaction(s) Onset Inactive Treating Comm ents Source Name Type Date Date Clinician CODEINE DRUG Active Hives Univers INGREDI 03-30 ity of 00:00: [place] 00 Medical Branch Codeine Propensi Active Hives Univers ty to 03-30 ity of adverse 00:00: [place] reaction 00 Medical s Branch PENICILL Drug Active Hives Univers INS Class 08-21 ity of 00:00: [place] 00 Medical Branch Penicill Propensi Active Swelling Pt Univ ers ins ty to 08-21 reports ity of adverse 00:00: allergy [place] reaction 00 as an Medical s , Branch but has recently taken amoxicill in without reaction. Penicill Propensi Active Swelling Pt Univ ers ins ty to 08-21 reports ity of adverse 00:00: allergy [place] reaction 00 as an Medical s infant, Branch but has recently taken amoxicill in without reaction. Social History Social Habit Start Date Stop Date Quantity Comments Source History of tobacco Cigarette Smoker University of use [facility] Exposure to 2021-11-03 2021-11-13 Not sure University of SARS-CoV-2 (event) 00:00:00 07:51:00 [facility] Alcohol intake 2021-08-14 2021-08-14 0 /d University of 00:00:00 00:00:00 [facility] Cigarettes smoked 2016-02-02 2016-02-02 Univers ity of current (pack per 00:00:00 00:00:00 ) - Reported Branch Cigarette 2016-02-02 2016-02-02 University of pack-years 00:00:00 00:00:00 [facility] Tobacco use and 2016-02-02 2016-02-02 Never used Universit y of exposure 00:00:00 00:00:00 [facility] Sex [birth year] Universit y of 00:00:00 00:00:00 [place] [facility] Smoking Status Start Date Stop Date Source Current every day smoker 2016-02-02 00:00:00 [facility] Medications Ordered Filled Start Stop Current Ordering Indication Dosage Frequency Signature Comments Components Source Medication Medication Date Date Medication? Clinician (SIG) Name Name furosemide 2021- Yes [id number] Take 1 Univers 20 mg 4-25 07-25 tablet by ity of tablet 00:00: 04:59 mouth [place] 00 :00 every Medical morning Branch and evening for 5 days, THEN 1 tablet daily for 85 days. ondansetron 2020- No 4mg 4 mg, Univ ers (ZOFRAN-ODT - 06-11 Oral, ity of ) 06:15: 05:21 ONCE, 1 [place] disintegrat 00 :00 dose, Fri Med ical ing tablet 12/30/20 at [facility] 4 mg 0115, Routine ondansetron Yes [id number] 4mg Take 1 Univers (ZOFRAN 6-11 tablet by ity of ODT) 4 mg 00:00: mouth [place] disintegrat 00 every 8 Medic al ing tablet (eight) Branch hours as needed for Nausea and Vomiting (N/V). ondansetron Yes [id number] 4mg Take 1 Univers (ZOFRAN 6-11 tablet by ity of ODT) 4 mg 00:00: mouth [place] disintegrat 00 every 8 Medic al ing tablet (eight) Branch hours as needed for Nausea and Vomiting (N/V). ondansetron 2020- Yes [id number] 4mg Take 1 Univers (ZOFRAN 6-11 tablet by ity of ODT) 4 mg 00:00: mouth [place] disintegrat 00 every 8 Medic al ing tablet (eight) Branch hours as needed for Nausea and Vomiting (N/V). ondansetron 2020-0 Yes [id number] 4mg Take 1 Univers (ZOFRAN 6-11 tablet by ity of ODT) 4 mg 00:00: mouth [place] disintegrat 00 every 8 Medic al ing tablet (eight) Branch hours as needed for Nausea and Vomiting (N/V). ondansetron Yes [id number] 4mg Take 1 Univers (ZOFRAN 6-11 tablet by ity of ODT) 4 mg 00:00: mouth [place] disintegrat 00 every 8 Medic al ing tablet (eight) Branch hours as needed for Nausea and Vomiting (N/V). ondansetron 2021-0 Yes [id number] 4mg Take 1 Univers (ZOFRAN 6-11 tablet by ity of ODT) 4 mg 00:00: mouth [place] disintegrat 00 every 8 Medic al ing tablet (eight) Branch hours as needed for Nausea and Vomiting (N/V). ondansetron 2021-0 Yes [id number] 4mg Take 1 Univers (ZOFRAN 6-11 tablet by ity of ODT) 4 mg 00:00: mouth [place] disintegrat 00 every 8 Medic al ing tablet (eight) Branch hours as needed for Nausea and Vomiting (N/V). chlorphenir 2021-0 Yes [id number] 4mg Take 1 Univers amine 4 mg 5-18 tablet by ity of tablet 00:00: mouth [place] 00 every 6 Medical (six) Branch hours as needed for Allergies or Runny nose. methylPREDN 2021-0 Yes [id number] Take by Univers ISolone 5-18 mouth ity of (MEDROL, 00:00: SEE-INSTRU Rob as BERENICE,) 4 mg 00 CTIONS. Medica l tablets follow Branch package directions chlorphenir 2021-0 Yes [id number] 4mg Take 1 Univers amine 4 mg 5-18 tablet by ity of tablet 00:00: mouth [place] 00 every 6 Medical (six) Branch hours as needed for Allergies or Runny nose. methylPREDN 2021-0 Yes [id number] Take by Univers ISolone 5-18 mouth ity of (MEDROL, 00:00: SEE-INSTRU Rob as BERENICE,) 4 mg 00 CTIONS. Medica l tablets follow Branch package directions chlorphenir 2021-0 Yes [id number] 4mg Take 1 Univers amine 4 mg 5-18 tablet by ity of tablet 00:00: mouth [place] 00 every 6 Medical (six) Branch hours as needed for Allergies or Runny nose. methylPREDN 2021-0 Yes [id number] Take by Univers ISolone 5-18 mouth ity of (MEDROL, 00:00: SEE-INSTRU Rob as BERENICE,) 4 mg 00 CTIONS. Medica l tablets follow Branch package directions chlorphenir 2021-0 Yes [id number] 4mg Take 1 Univers amine 4 mg 5-18 tablet by ity of tablet 00:00: mouth [place] 00 every 6 Medical (six) Branch hours as needed for Allergies or Runny nose. methylPREDN 2021-0 Yes [id number] Take by Univers ISolone 5-18 mouth ity of (MEDROL, 00:00: SEE-INSTRU Rob as BERENICE,) 4 mg 00 CTIONS. Medica l tablets follow Branch package directions chlorphenir 2021-0 Yes [id number] 4mg Take 1 Univers amine 4 mg 5-18 tablet by ity of tablet 00:00: mouth [place] 00 every 6 Medical (six) Branch hours as needed for Allergies or Runny nose. methylPREDN 2021-0 Yes [id number] Take by Univers ISolone 5-18 mouth ity of (MEDROL, 00:00: SEE-INSTRU Rob as BERENICE,) 4 mg 00 CTIONS. Medica l tablets follow Branch package directions chlorphenir 2021-0 Yes [id number] 4mg Take 1 Univers amine 4 mg 5-18 tablet by ity of tablet 00:00: mouth [place] 00 every 6 Medical (six) Branch hours as needed for Allergies or Runny nose. methylPREDN 2021-0 Yes [id number] Take by Univers ISolone 5-18 mouth ity of (MEDROL, 00:00: SEE-INSTRU Rob as BERENICE,) 4 mg 00 CTIONS. Medica l tablets follow Branch package directions chlorphenir 2021-0 Yes [id number] 4mg Take 1 Univers amine 4 mg 5-18 tablet by ity of tablet 00:00: mouth [place] 00 every 6 Medical (six) Branch hours as needed for Allergies or Runny nose. methylPREDN 2021-0 Yes [id number] Take by Univers ISolone 5-18 mouth ity of (MEDROL, 00:00: SEE-INSTRU Rob as BERENICE,) 4 mg 00 CTIONS. Medica l tablets follow Branch package directions chlorphenir 2021-0 Yes [id number] 4mg Take 1 Univers amine 4 mg 5-18 tablet by ity of tablet 00:00: mouth [place] 00 every 6 Medical (six) Branch hours as needed for Allergies or Runny nose. methylPREDN 2021-0 Yes [id number] Take by Univers ISolone 5-18 mouth ity of (MEDROL, 00:00: SEE-INSTRU Rob as BERENICE,) 4 mg 00 CTIONS. Medica l tablets follow Branch package directions clindamycin 0 2020- No [id number] 300mg Take 2 Univers 150 mg 5-18 05-26 capsules ity of capsule 00:00: 04:59 by mouth 4 Rob as 00 :00 (four) Medical times Branch daily for 7 days. diphenhydrA 2016-07 Yes 25mg Take 25 mg Univers MINE 2-11 by mouth ity of (BENADRYL 14:43: every 4 [place] ALLERGY) 25 20 (four) Medica l mg tablet hours as Branch needed for Allergies. BUDESONIDE/ 2016-07 Yes Inhale. Uni vers FORMOTEROL 2-11 ity of FUMARATE 14:43: [place] (SYMBICORT 20 Medical INHALE) Branch diphenhydrA 2016-07 Yes 25mg Take 25 mg Univers MINE 2-11 by mouth ity of (BENADRYL 14:43: every 4 [place] ALLERGY) 25 20 (four) Medica l mg tablet hours as Branch needed for Allergies. BUDESONIDE/ 2016-07 Yes Inhale. Uni vers FORMOTEROL 2-11 ity of FUMARATE 14:43: [place] (SYMBICORT 20 Medical INHALE) Branch diphenhydrA 2016-07 Yes 25mg Take 25 mg Univers MINE 2-11 by mouth ity of (BENADRYL 14:43: every 4 [place] ALLERGY) 25 20 (four) Medica l mg tablet hours as Branch needed for Allergies. BUDESONIDE/ 2016-07 Yes Inhale. Uni vers FORMOTEROL 2-11 ity of FUMARATE 14:43: [place] (SYMBICORT 20 Medical INHALE) Branch diphenhydrA 2016-07 Yes 25mg Take 25 mg Univers MINE 2-11 by mouth ity of (BENADRYL 14:43: every 4 [place] ALLERGY) 25 20 (four) Medica l mg tablet hours as Branch needed for Allergies. BUDESONIDE/ 2016-07 Yes Inhale. Uni vers FORMOTEROL 2-11 ity of FUMARATE 14:43: [place] (SYMBICORT 20 Medical INHALE) Branch diphenhydrA 2016-07 Yes 25mg Take 25 mg Univers MINE 2-11 by mouth ity of (BENADRYL 08:43: every 4 [place] ALLERGY) 25 20 (four) Medica l mg tablet hours as Branch needed for Allergies. BUDESONIDE/ 2016-07 Yes Inhale. Uni vers FORMOTEROL 2-11 ity of FUMARATE 08:43: [place] (SYMBICORT 20 Medical INHALE) Branch diphenhydrA 2016-07 Yes 25mg Take 25 mg Univers MINE 2-11 by mouth ity of (BENADRYL 08:43: every 4 [place] ALLERGY) 25 20 (four) Medica l mg tablet hours as Branch needed for Allergies. BUDESONIDE/ 2016-07 Yes Inhale. Uni vers FORMOTEROL 2-11 ity of FUMARATE 08:43: [place] (SYMBICORT 20 Medical INHALE) Branch diphenhydrA 2016-07 Yes 25mg Take 25 mg Univers MINE 2-11 by mouth ity of (BENADRYL 08:43: every 4 [place] ALLERGY) 25 20 (four) Medica l mg tablet hours as Branch needed for Allergies. BUDESONIDE/ 2016-07 Yes Inhale. Uni vers FORMOTEROL 2-11 ity of FUMARATE 08:43: [place] (SYMBICORT 20 Medical INHALE) Branch diphenhydrA 2016-07 Yes 25mg Take 25 mg Univers MINE 2-11 by mouth ity of (BENADRYL 08:43: every 4 [place] ALLERGY) 25 20 (four) Medica l mg tablet hours as Branch needed for Allergies. BUDESONIDE/ 2016-07 Yes Inhale. Uni vers FORMOTEROL 2-11 ity of FUMARATE 08:43: [place] (SYMBICORT 20 Medical INHALE) Branch docusate 2016-07 Yes 240mg Take 1 Univer s calcium 240 1-21 capsule by it y of mg capsule 00:00: mouth [place] 00 daily as Medical needed for Branch Constipati on. ferrous 2016-07 Yes 325mg Take 1 Univers sulfate 325 1-21 tablet by ity of mg (65 mg 00:00: mouth 2 [place] iron) 00 (two) Medical tablet times Branch daily. ibuprofen 2016-07 Yes 600mg Take 1 Unive rs 600 mg 1-21 tablet by ity of tablet 00:00: mouth [place] 00 every 6 Medical (six) Branch hours as needed for Pain (scale 1-3) or Pain (scale 4-6) (Pain). Take with food or milk. docusate 2016-07 Yes 240mg Take 1 Univer s calcium 240 1-21 capsule by it y of mg capsule 00:00: mouth once [place] 00 daily as Medical needed for Branch Constipati on. ferrous 2016-07 Yes 325mg Take 1 Univers sulfate 325 1-21 tablet by ity of mg (65 mg 00:00: mouth 2 [place] iron) 00 (two) Medical tablet times Branch daily. ibuprofen 2016-07 Yes 600mg Take 1 Unive rs 600 mg 1-21 tablet by ity of tablet 00:00: mouth [place] 00 every 6 Medical (six) Branch hours as needed for Pain (scale 1-3) or Pain (scale 4-6) (Pain). Take with food or milk. docusate 2016-07 Yes 240mg Take 1 Univer s calcium 240 1-21 capsule by it y of mg capsule 00:00: mouth once [place] 00 daily as Medical needed for Branch Constipati on. ferrous 2016-07 Yes 325mg Take 1 Univers sulfate 325 1-21 tablet by ity of mg (65 mg 00:00: mouth 2 [place] iron) 00 (two) Medical tablet times Branch daily. ibuprofen 2016-07 Yes 600mg Take 1 Unive rs 600 mg 1-21 tablet by ity of tablet 00:00: mouth [place] 00 every 6 Medical (six) Branch hours as needed for Pain (scale 1-3) or Pain (scale 4-6) (Pain). Take with food or milk. docusate 2016-07 Yes 240mg Take 1 Univer s calcium 240 1-21 capsule by it y of mg capsule 00:00: mouth once [place] 00 daily as Medical needed for Branch Constipati on. ferrous 2016-07 Yes 325mg Take 1 Univers sulfate 325 1-21 tablet by ity of mg (65 mg 00:00: mouth 2 [place] iron) 00 (two) Medical tablet times Branch daily. ibuprofen 2016-07 Yes 600mg Take 1 Unive rs 600 mg 1-21 tablet by ity of tablet 00:00: mouth [place] 00 every 6 Medical (six) Branch hours as needed for Pain (scale 1-3) or Pain (scale 4-6) (Pain). Take with food or milk. docusate 2016-07 Yes 240mg Take 1 Univer s calcium 240 1-21 capsule by it y of mg capsule 00:00: mouth once [place] 00 daily as Medical needed for Branch Constipati on. ferrous 2016-07 Yes 325mg Take 1 Univers sulfate 325 1-21 tablet by ity of mg (65 mg 00:00: mouth 2 [place] iron) 00 (two) Medical tablet times Branch daily. ibuprofen 2016-07 Yes 600mg Take 1 Unive rs 600 mg 1-21 tablet by ity of tablet 00:00: mouth [place] 00 every 6 Medical (six) Branch hours as needed for Pain (scale 1-3) or Pain (scale 4-6) (Pain). Take with food or milk. docusate 2016-07 Yes 240mg Take 1 Univer s calcium 240 1-21 capsule by it y of mg capsule 00:00: mouth once [place] 00 daily as Medical needed for Branch Constipati on. ferrous 2016-07 Yes 325mg Take 1 Univers sulfate 325 1-21 tablet by ity of mg (65 mg 00:00: mouth 2 [place] iron) 00 (two) Medical tablet times Branch daily. ibuprofen 2016-07 Yes 600mg Take 1 Unive rs 600 mg 1-21 tablet by ity of tablet 00:00: mouth [place] 00 every 6 Medical (six) Branch hours as needed for Pain (scale 1-3) or Pain (scale 4-6) (Pain). Take with food or milk. docusate 2016-07 Yes 240mg Take 1 Univer s calcium 240 1-21 capsule by it y of mg capsule 00:00: mouth once [place] 00 daily as Medical needed for Branch Constipati on. ferrous 2016-07 Yes 325mg Take 1 Univers sulfate 325 1-21 tablet by ity of mg (65 mg 00:00: mouth 2 [place] iron) 00 (two) Medical tablet times Branch daily. ibuprofen 2016-07 Yes 600mg Take 1 Unive rs 600 mg 1-21 tablet by ity of tablet 00:00: mouth [place] 00 every 6 Medical (six) Branch hours as needed for Pain (scale 1-3) or Pain (scale 4-6) (Pain). Take with food or milk. docusate 2016-07 Yes 240mg Take 1 Univer s calcium 240 1-21 capsule by it y of mg capsule 00:00: mouth once [place] 00 daily as Medical needed for Branch Constipati on. ferrous 2016-07 Yes 325mg Take 1 Univers sulfate 325 1-21 tablet by ity of mg (65 mg 00:00: mouth 2 [place] iron) 00 (two) Medical tablet times Branch daily. ibuprofen 2016-07 Yes 600mg Take 1 Unive rs 600 mg 1-21 tablet by ity of tablet 00:00: mouth [place] 00 every 6 Medical (six) Branch hours as needed for Pain (scale 1-3) or Pain (scale 4-6) (Pain). Take with food or milk. albuterol 2016- Yes [id number] 2.5mg Inhale 3 Univers 2.5 mg /3 9-13 103 mL every 4 ity of mL (0.083 00:00: (four) [place] %) 00 hours as Medical nebulizer needed for Bran ch solution Wheezing or Shortness of Breath. albuterol Yes [id number] 2.5mg Inhale 3 Univers 2.5 mg /3 9-13 103 mL every 4 ity of mL (0.083 00:00: (four) [place] %) 00 hours as Medical nebulizer needed for Bran ch solution Wheezing or Shortness of Breath. albuterol Yes [id number] 2.5mg Inhale 3 Univers 2.5 mg /3 9-13 103 mL every 4 ity of mL (0.083 00:00: (four) [place] %) 00 hours as Medical nebulizer needed for Bran ch solution Wheezing or Shortness of Breath. albuterol Yes [id number] 2.5mg Inhale 3 Univers 2.5 mg /3 9-13 103 mL every 4 ity of mL (0.083 00:00: (four) [place] %) 00 hours as Medical nebulizer needed for Bran ch solution Wheezing or Shortness of Breath. albuterol Yes [id number] 2.5mg Inhale 3 Univers 2.5 mg /3 9-13 103 mL every 4 ity of mL (0.083 00:00: (four) [place] %) 00 hours as Medical nebulizer needed for Bran ch solution Wheezing or Shortness of Breath. albuterol Yes [id number] 2.5mg Inhale 3 Univers 2.5 mg /3 9-13 103 mL every 4 ity of mL (0.083 00:00: (four) [place] %) 00 hours as Medical nebulizer needed for Bran ch solution Wheezing or Shortness of Breath. albuterol Yes [id number] 2.5mg Inhale 3 Univers 2.5 mg /3 9-13 103 mL every 4 ity of mL (0.083 00:00: (four) [place] %) 00 hours as Medical nebulizer needed for Bran ch solution Wheezing or Shortness of Breath. albuterol 2017-0 Yes [id number] 2.5mg Inhale 3 Univers 2.5 mg /3 9-13 103 mL every 4 ity of mL (0.083 00:00: (four) [place] %) 00 hours as Medical nebulizer needed for Bran ch solution Wheezing or Shortness of Breath. Immunizations Ordered Filled Immunization Date Status Comments [facility] e Immunization Name Name [facility] 2017-03-26 Completed University of 00:00:00 [facility] 2017-03-26 Completed University of 00:00:00 [facility] 2017-03-26 Completed University of 00:00:00 [facility] 2017-03-26 Completed University of 00:00:00 [facility] 2017-03-26 Completed University of 00:00:00 [facility] 2017-03-26 Completed University of 00:00:00 [facility] 2017-03-26 Completed University of 00:00:00 [facility] 2017-03-26 Completed University of 00:00:00 [facility] Rubella 2009-03-29 Completed University of 00:00:00 [facility] Rubella 2009-03-29 Completed University of 00:00:00 [facility] Rubella 2009-03-29 Completed University of 00:00:00 [facility] Rubella 2009-03-29 Completed University of 00:00:00 [facility] Rubella 2009-03-29 Completed University of 00:00:00 [facility] Rubella 2009-03-29 Completed University of 00:00:00 [facility] Rubella 2009-03-29 Completed University of 00:00:00 [facility] Rubella 2009-03-29 Completed University of 00:00:00 [facility] Td 2008-07-22 Completed University of 00:00:00 [facility] Td 2008-07-22 Completed University of 00:00:00 [facility] Td 2008-07-22 Completed University of 00:00:00 [facility] Td 2008-07-22 Completed University of 00:00:00 [facility] Td 2008-07-22 Completed University of 00:00:00 [facility] Td 2008-07-22 Completed University of 00:00:00 [facility] Td 2008-07-22 Completed University of 00:00:00 [place] [facility] Td 2008-07-22 Completed University of 00:00:00 [facility] Vital Signs Vital Name Observation Time Observation Value Comments Source Systolic blood 2021-11-13 12:53:00 139 mm[Hg] Univer sity of pressure [place] [facility] Diastolic blood 2021-11-13 12:53:00 106 mm[Hg] Unive rsity of pressure [place] [facility] Heart rate 2021-11-13 12:53:00 100 /min Universi ty of [place] [facility] Body temperature 2021-11-13 12:53:00 37.17 Ysabel Univ ersity of [place] [facility] Respiratory rate 2021-11-13 12:53:00 18 /min Univ ersity of [place] [facility] Body height 2021-11-13 12:53:00 167.6 cm Universi ty of [place] [facility] Body weight 2021-11-13 12:53:00 147.419 kg Universi ty of [place] [facility] BMI 2021-11-13 12:53:00 52.46 kg/m2 Universi ty of [place] [facility] Oxygen saturation in 2021-11-13 12:53:00 98 /min University of Arterial blood by [place] [facility] Pulse oximetry Branch Systolic blood 2021-08-14 13:32:00 136 mm[Hg] Univer sity of pressure [place] [facility] Diastolic blood 2021-08-14 13:32:00 94 mm[Hg] Unive rsity of pressure [place] [facility] Heart rate 2021-08-14 13:32:00 89 /min Universi ty of [place] [facility] Body temperature 2021-08-14 13:32:00 36.83 Ysabel Univ ersity of [place] [facility] Respiratory rate 2021-08-14 13:32:00 22 /min Univ ersity of [place] [facility] Body weight 2021-08-14 13:32:00 147.419 kg Universi ty of [place] [facility] BMI 2021-08-14 13:32:00 52.46 kg/m2 Universi ty of [place] [facility] Oxygen saturation in 2021-08-14 13:32:00 98 /min University of Arterial blood by [place] [facility] Pulse oximetry Branch Systolic blood 2021-03-17 14:51:00 123 mm[Hg] Univer sity of pressure [place] [facility] Diastolic blood 2021-03-17 14:51:00 87 mm[Hg] Unive rsity of pressure [place] [facility] Heart rate 2021-03-17 14:51:00 92 /min Universi ty of [place] [facility] Body temperature 2021-03-17 14:51:00 37.11 Ysabel Univ ersity of [place] [facility] Respiratory rate 2021-03-17 14:51:00 20 /min Univ ersity of [place] [facility] Body weight 2021-03-17 14:51:00 152.409 kg Universi ty of [place] [facility] BMI 2021-03-17 14:51:00 54.23 kg/m2 Universi ty of [place] [facility] Oxygen saturation in 2021-03-17 14:51:00 98 /min University of Arterial blood by [facility] Pulse oximetry Branch Systolic blood 2020-12-30 06:00:00 150 mm[Hg] Univer sity of pressure [place] [facility] Diastolic blood 2020-12-30 06:00:00 91 mm[Hg] Unive rsity of pressure [place] [facility] Heart rate 2020-12-30 06:00:00 93 /min Universi ty of [place] [facility] Respiratory rate 2020-12-30 06:00:00 18 /min Univ ersity of [place] [facility] Oxygen saturation in 2020-12-30 06:00:00 97 /min University of Arterial blood by [facility] Pulse oximetry Branch Body temperature 2020-12-30 05:07:00 37.22 Ysabel Univ ersity of [place] [facility] Body height 2020-12-30 05:07:00 167.6 cm Universi ty of [place] [facility] Body weight 2020-12-30 05:07:00 136.079 kg Universi ty of [place] [facility] BMI 2020-12-30 05:07:00 48.42 kg/m2 Universi ty of [place] [facility] Systolic blood 2020-12-06 18:13:00 152 mm[Hg] Univer sity of pressure [place] [facility] Diastolic blood 2020-12-06 18:13:00 86 mm[Hg] Unive rsity of pressure [place] [facility] Heart rate 2020-12-06 18:13:00 99 /min Universi ty of [place] [facility] Body temperature 2020-12-06 18:13:00 37.22 Ysabel [facility] Respiratory rate 2020-12-06 18:13:00 18 /min [facility] Body weight 2020-12-06 18:13:00 148.78 kg [facility] BMI 2020-12-06 18:13:00 52.94 kg/m2 [facility] Oxygen saturation in 2020-12-06 18:13:00 97 /min [facility] Arterial blood by [facility] Pulse oximetry Branch Procedures Procedure Date / Time Performed Performing Clinician [facility] e CONSENT/REFUSAL FOR 2021-08-14 13:27:19 [facility] TREATMENT COMP. METABOLIC PANEL 2021-03-17 17:54:00 Jaems Greer [place] [facility] ([id number]) [facility] CBC WITH DIFF 2021-03-17 17:54:00 James Greer [facility] N-TERMINAL PRO-BNP 2021-03-17 17:54:00 James Greer [facility] XR ANKLE 3+ VW 2021-03-17 15:53:14 James Greer [facility] POCT TEST 2020-12-30 05:18:00 Nancy Bautista [facility] CONSENT/REFUSAL FOR 2020-12-30 04:59:10 [facility] Name [facility] TREATMENT NOTICE OF PRIVACY 2020-12-06 18:07:34 Doctor Unassigned, No [facility] PRACTICES [facility] CONSENT/REFUSAL FOR 2020-12-06 18:07:14 Doctor Unassigned, No [facility] TREATMENT Encounters Start End Encounter Admission Attending Care Care Encounter Source Date/Time Date/Time Type Type Clinicians Facility Department ID 2021-05-22 Emergency [facility] [id number] [facility]21 Emergency [facility] [id number] Univers 19:47:48 [facility] 2021-11-13 2021-11-13 Emergency X SINGER [facility] ERT [id number] Univers 07:54:00 08:21:00 JEAN-CLAUDE itemily of [facility] 2021-11-13 2021-11-13 Emergency [facility] [id number] Univers 07:54:00 08:21:00 Jean-Claude SUE [id number] i ty of [place] 4.2.7.2.686 [facility] [id number] [address] 2021-08-14 2021-08-14 [facility] [id number] Univers 07:35:00 08:08:00 NANCY ity [facility] 2021-08-14 2021-08-14 [facility] [id number] Univers 07:35:00 08:08:00 Nancy DEVI [id number] ity of [place] 4.2.7.2.686 [facility] [phone] [address] 2021-08-14 2021-08-14 Letter JAHAIRA Acuna [id number] Univers 00:00:00 00:00:00 (Out) Ace Jackelyn YESI [id number] i ty of [facility] 4.2.7.2.686 Rob as [id number] [address] 2021-08-14 2021-08-14 Telephone JAHAIRA Guzmán [id number] Univers 00:00:00 00:00:00 Barbara KEY [id number] ity of [facility] 4.2.7.2.686 Rob as [id number] [address] 2021-03-17 2021-03-17 [facility] [id number] Univers 09:53:00 13:52:00 JAMES itemily [facility] 2021-03-17 2021-03-17 [facility] [id number] Univers 09:53:00 13:52:00 James Devi 350.1.13.10 i ty of [place] 4.2.7.2.686 [facility] [id number] [address] 2020-12-30 2020-12-30 Emergency Michele, [facility] [id number] Univers 00:00:00 01:28:00 Nancy Devi [id number] ity of [place] 4.2.7.2.686 [facility] [id number] [address] 2020-12-06 2020-12-06 Emergency [facility] [id number] Univers 13:17:00 14:49:00 Jean-Claude Devi 350.1.13.10 i ty of [place] 4.2.7.2.686 [facility] [id number] [address] Results Test Description Test Time Test Comments Results Result Comments Source N-TERMINAL PRO-BNP 2021-03-17 18:22:39 Test Item Value Reference Range Interpretation Comme nts NT-proBNP (test code = 71 pg/mL See_Comment [Aut omated message] The 9062316149) system which ge nerated this result tra nsmitted reference range : <=125. The reference r sammy was not used to int erpret this result as kimani l/abnormal. LORRAINE (test code = LORRAINE) Biotin has been reported to cause a negative bias, interpret results relative to patient's use of biotin. Lab Interpretation (test Normal code = 07815-6) [facility] [id number] 18:22:39 Test Item Value Reference Range Interpretation Comments NT-proBNP (test code = 71 pg/mL See_Comment [Aut omated message] 6269647651) The system whic h generated this result transmitted ref erence range: <=125. T he reference range was not used to int erpret this result as normal/abnormal . LORRAINE (test code = LORRAINE) Lab Interpretation (test Normal code = 58147-9) [facility]. METABOLIC PANEL ([id number])2021-03-17 18:14:00 Test Item Value Reference Range Interpretation Comments NA (test code = 139 mmol/L 135-145 2631147216) K (test code = 4.0 mmol/L 3.5-5.0 8848640285) CL (test code = 103 mmol/L 98-108 9610988420) CO2 TOTAL (test code 30 mmol/L 23-31 = 3973607958) AGAP (test code = 2-16 5265182769) BUN (test code = 10 mg/dL 7-23 3777800260) GLUCOSE (test code = 86 mg/dL 70-110 2327718261) CREATININE (test code 0.74 mg/dL 0.50-1.04 = 6241431927) TOTAL BILI (test code 0.4 mg/dL 0.1-1.1 = 3905388473) CALCIUM (test code = 9.7 mg/dL 8.6-10.6 0228202050) T PROTEIN (test code 8.1 g/dL 6.3-8.2 = 6268599045) ALBUMIN (test code = 4.4 g/dL 3.5-5.0 6184696464) ALK PHOS (test code = 95 U/L 34-122 1767251548) ALTv (test code = 30 U/L 5-35 2-6) AST(SGOT) (test code 31 U/L 13-40 = 5311982459) eGFR (test code = mL/min/1.73m2 0645709944) LORRAINE (test code = LORRAINE) Association of [...] or urine or abnormalities in imaging tests). [facility]. METABOLIC PANEL (15770)2021-03-17 18:14:00 Test Item Value Reference Range Interpretation Comments NA (test code = 3835269433) 139 mmol/L 135-145 K (test code = 0517010498) 4.0 mmol/L 3.5-5.0 CL (test code = 5140060630) 103 mmol/L 98-108 CO2 TOTAL (test code = 2605650502) 30 mmol/L 23-31 AGAP (test code = 3472254987) 2-16 BUN (test code = 9852342569) 10 mg/dL 7-23 GLUCOSE (test code = 2130528301) 86 mg/dL 70-110 CREATININE (test code = 0.74 mg/dL 0.50-1.04 2672743809) TOTAL BILI (test code = 0.4 mg/dL 0.1-1.5 9923788154) CALCIUM (test code = 2110499051) 9.7 mg/dL 8.6-10.6 T PROTEIN (test code = 1814581746) 8.1 g/dL 6.3-8.2 ALBUMIN (test code = 2850266306) 4.4 g/dL 3.5-5.0 ALK PHOS (test code = 2779897686) 95 U/L 34-122 ALTv (test code = 1742-6) 30 U/L 5-35 AST(SGOT) (test code = 3538484595) 31 U/L 13-40 eGFR (test code = 4042432152) mL/min/1.73m2 LORRAINE (test code = LORRAINE) [facility] WITH [id number] 18:03:33 Test Item Value Reference Range Interpretation Comments WBC (test code = See_Comment [Automated message] 6690-2) The system [employer] generated this result transmitted ref erence range: 4.30 - 1 1.10 10*3/?L. The re ference range was not u sed to interpret this result as normal/abnor mal. RBC (test code = See_Comment [Automated message] 789-8) The system [employer] generated this result transmitted ref erence range: [...] RDW-SD (test code 45.8 fL 39.0-49.9 = 73307-3) RDW-CV (test code 14.0 % 12.0-15.5 = 788-0) PLT (test code = See_Comment [Automated message] 777-3) The system [employer] generated this result transmitted ref erence range: 166 - 35 8 10*3/?L. The re ference range was not u sed to interpret this result as normal/abnor mal. MPV (test code = 10.3 fL 9.5-12.9 22929-8) NRBC/100 WBC (test See_Comment [Automat ed message] code = 1735587903) The syste [employer] which generated this result transmitted ref erence range: 0.0 - 10 .0 /100 WBCs. The refer ence range was not u sed to interpret this result as normal/abnor mal. NRBC x10^3 (test <0.01 See_Comment [Automated message] code = 5701427379) The syste m which generated this result transmitted ref erence range: 10*3/?L. The reference range was not used to interpr et this result as normal/abnormal . GRAN MAT (NEUT) % 72.2 % (test code = 770-8) IMM GRAN % (test 0.30 % code = 7739606518) LYMPH % (test code 20.1 % = 736-9) MONO % (test code 5.5 % = 5905-5) EOS % (test code = 1.4 % 713-8) BASO % (test code 0.5 % = 706-2) GRAN MAT 6.69 10*3/uL 1.88-7.09 x10^3(ANC) (test code = 7939117046) IMM GRAN x10^3 0.03 10*3/uL 0.00-0.06 (test code = 0043371188) LYMPH x10^3 (test 1.86 10*3/uL 1.32-3.29 code = 731-0) MONO x10^3 (test 0.51 10*3/uL 0.33-0.92 code = 742-7) EOS x10^3 (test 0.13 10*3/uL 0.03-0.39 code = 711-2) BASO x10^3 (test 0.05 10*3/uL 0.01-0.07 code = 704-7) [facility] WITH [id number] 18:03:33 Test Item Value Reference Range Interpretation Comments WBC (test code = See_Comment [Automated message] 1390-2) The system [employer] generated this result transmitted ref erence range: 4.30 - 1 1.10 10*3/?L. The re ference range was not u sed to interpret this result as normal/abnor mal. RBC (test code = See_Comment [Automated message] 329-8) The system [employer] generated this result transmitted ref erence range: [...] RDW-SD (test code 45.8 fL 39.0-49.9 = 78664-6) RDW-CV (test code 14.0 % 12.0-15.5 = 788-0) PLT (test code = See_Comment [Automated message] 777-3) The system whic h generated this result transmitted ref erence range: 166 - 35 8 10*3/?L. The re ference range was not u sed to interpret this result as normal/abnor mal. MPV (test code = 10.3 fL 9.5-12.9 59203-1) NRBC/100 WBC (test See_Comment [Automat ed message] code = 6665774330) The syste m which generated this result transmitted ref erence range: 0.0 - 10 .0 /100 WBCs. The refer ence range was not u sed to interpret this result as normal/abnor mal. NRBC x10^3 (test <0.01 See_Comment [Automated message] code = 7586711036) The syste m which generated this result transmitted ref erence range: 10*3/?L. The reference range was not used to interpr et this result as normal/abnormal . GRAN MAT (NEUT) % 72.2 % (test code = 770-8) IMM GRAN % (test 0.30 % code = 7458424056) LYMPH % (test code 20.1 % = 736-9) MONO % (test code 5.5 % = 5905-5) EOS % (test code = 1.4 % 713-8) BASO % (test code 0.5 % = 706-2) GRAN MAT 6.69 10*3/uL 1.88-7.09 x10^3(ANC) (test code = 2239128031) IMM GRAN x10^3 0.03 10*3/uL 0.00-0.06 (test code = 6997498717) LYMPH x10^3 (test 1.86 10*3/uL 1.32-3.29 code = 731-0) MONO x10^3 (test 0.51 10*3/uL 0.33-0.92 code = 742-7) EOS x10^3 (test 0.13 10*3/uL 0.03-0.39 code = 711-2) BASO x10^3 (test 0.05 10*3/uL 0.01-0.07 code = 704-7) [facility] VW [id number] 16:43:38 Severe soft tissue swelling which may be seen with dependent edema andright- sided heart failure or cellulitis. 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.IMPRESSIONSevere soft tissue swelling which may be seen with dependent edema andright-sided heart failure or cellulitis.No acute bony abnormalities.[facility] VW BILATERAL 2021-03-17 16:43:38 Severe soft tissue swelling which may [...] andright-sided heart failure or cellulitis.No acute bony abnormalities.[facility] [id number] 05:18:00 Test Item Value Reference Range Interpretation Comments POCT PREG (test code = 1605) negative On board controls acceptable with present C Line (test code = 3574) POCT PREG LOT # (test code = 3575) [id number] POCT PREG TEST DATE (test 06/20/2022 code = 3576) Lab Interpretation (test code = Normal 64235-9) [facility]"
--- NOTE | 2022-01-11 00:30 | ER ---
Nurse's Notes [facility] Name: More Bustillo Age: 36 yrs Sex: Female : 1985 Arrival Date: 01/10/2022 Time: 21:51 Bed 12 Private MD: Diagnosis: Coronavirus infection, unspecified Presentation: 01/10 22:32 Chief complaint: Patient states: her dad tested positive for Covid yesterday and has bb been sick for several days prior to that and she wants to be tested as well. She has seasonal allergies and is having a slight cough and stuffy/runny nose. Coronavirus screen: congestion, cough unrelated to allergies, runny nose. Ebola Screen: No symptoms or risks identified at this time. Initial Sepsis Screen: Does the patient meet any 2 criteria? No. Patient's initial sepsis screen is negative. Does the patient have a suspected source of infection? No. Patient's initial sepsis screen is negative. Risk Assessment: Do you want to hurt yourself or someone else? Patient reports no desire to harm self or others. Onset of symptoms was January 10, 2022. 22:32 Method Of Arrival: Ambulatory 22:32 Acuity: CHAD 4 bb Triage Assessment: 22:34 General: Appears in no apparent distress. Behavior is calm, cooperative. Pain: Denies bb pain. Neuro: Level of Consciousness is awake, alert, obeys commands, Oriented to person, place, time, situation. Cardiovascular: Capillary refill < 3 seconds Patient's skin is warm and dry. Respiratory: Respiratory effort is even, unlabored, Respiratory pattern is regular, Breath sounds are clear bilaterally. GI: No deficits noted. Derm: Skin is pink, warm \T\ dry. Musculoskeletal: Circulation, motion, and sensation intact. 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 - Social history:: Smoking status: Patient reports the use of cigarette tobacco products. Screenin:39 Abuse screen: Denies threats or abuse. Nutritional screening: No deficits noted. bb Tuberculosis screening: No symptoms or risk factors identified. Fall Risk None identified. Assessment: 22:39 Reassessment: No changes from previously documented assessment. Patient is alert, bb oriented x 3, equal unlabored respirations, skin warm/dry/pink. 01/11 01:04 Reassessment: Patient is alert, oriented x 3, equal unlabored respirations, skin bb warm/dry/pink. pt verbalized understanding of and agrees to plan of care discharge instructions given pt ambulated with steady gait to exit accompanied by family. Vital Signs: 01/10 22:32 BP 141 / 99; Pulse 93; Resp 20 S; Temp 98.8(O); Pulse Ox 100% on R/A; Weight 145.15 kg bb (R); Height 5 ft. 6 in. (167.64 cm) (R); 22:32 Body Mass Index 51.65 (145.15 kg, 167.64 cm) bb ED Course: 21:51 Patient arrived in ED. as 22:34 Triage completed. bb 22:34 Arm band placed on Patient placed in an exam room. Labs ordered per protocol. Covid bb swab sent to lab. 22:39 Patient has correct armband on for positive identification. bb 23:03 Clyde Dillard NP is PHCP. pm1 23:03 Ezequiel Sutton MD is Attending Physician. pm1 23:37 Mayte Bassett RN is Primary Nurse. bb 01/11 01:05 No provider procedures requiring assistance completed. Patient did not have IV access bb during this emergency room visit. Administered Medications: No medications were administered Outcome: 00:30 Discharge ordered by . pm1 01:05 Discharged to home ambulatory, with family. bb 01:05 Condition: stable 01:05 Discharge instructions given to patient, Instructed on discharge instructions, follow up and referral plans. Demonstrated understanding of instructions, follow-up care. 01:05 Patient left the ED. bb Signatures: Gabi Ascencio Brenda, MIGUEL RN bb Clyde Dillard NP DRAFTING LAYOUT WORKER pm1
--- NOTE | 2022-01-11 00:30 | EDPHYS ---
Physician Documentation [facility] Name: More Bustillo Age: 36 yrs Sex: Female : 1985 Arrival Date: 01/10/2022 Time: 21:51 Bed 12 Private MD: GUILHERME Physician Ezequiel Sutton HPI: 01/11 00:30 This 36 yrs old Female presents to ER via Ambulatory with complaints of r/o covid. pm1 00:30 Onset: The symptoms/episode began/occurred today. Associated signs and symptoms: The pm1 patient has no apparent associated signs or symptoms, Pertinent negatives: chest pain, cough, diarrhea, earache, fever, shortness of breath, vomiting, wheezing. Modifying factors: The patient symptoms are alleviated by nothing, the patient symptoms are aggravated by nothing. The patient has not experienced similar symptoms in the past. The patient has not recently seen a physician. 36-year-old female presenting to the ER with complaints of COVID testing. Patient without any symptoms. Patient presenting for COVID testing because her father tested positive for COVID. 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 - Social history:: Smoking status: Patient reports the use of cigarette tobacco products. ROS: 01/11 00:30 Constitutional: Negative for fever, chills, and weight loss, Cardiovascular: Negative pm1 for chest pain, palpitations, and edema, Respiratory: Negative for shortness of breath, cough, wheezing, and pleuritic chest pain, MS/Extremity: Negative for injury and deformity, Skin: Negative for injury, rash, and discoloration, Neuro: Negative for headache, weakness, numbness, tingling, and seizure. All other systems are negative. Exam: 00:30 Constitutional: This is a well developed, well nourished patient who is awake, alert, pm1 and in no acute distress. Head/Face: Normocephalic, atraumatic. 00:30 Back: No spinal tenderness. No costovertebral tenderness. Full range of motion. Skin: Warm, dry with normal turgor. Normal color with no rashes, no lesions, and no evidence of cellulitis. MS/ Extremity: Pulses equal, no cyanosis. Neurovascular intact. Full, normal range of motion. 00:30 ENT: Exam is negative for acute changes, Mouth: no acute changes, Lips: normal, moist, Oral mucosa: normal, pink and intact, moist. 00:30 Cardiovascular: Exam negative for acute changes, Rate: normal, Rhythm: regular, Pulses: no pulse deficits are appreciated, Heart sounds: normal, normal S1and S2. 00:30 Respiratory: Exam negative for acute changes, respiratory distress, shortness of breath, Breath sounds: are clear throughout. 00:30 Neuro: Exam negative for acute changes, Orientation: is normal, Mentation: is normal, Motor: is normal, moves all fours. Vital Signs: 01/10 22:32 BP 141 / 99; Pulse 93; Resp 20 S; Temp 98.8(O); Pulse Ox 100% on R/A; Weight 145.15 kg bb (R); Height 5 ft. 6 in. (167.64 cm) (R); 22:32 Body Mass Index 51.65 (145.15 kg, 167.64 cm) bb MDM: 23:03 Patient medically screened. pm1 01/11 00:29 Data reviewed: vital signs. Data interpreted: Pulse oximetry: on room air is 100 %. pm1 Interpretation: normal. Counseling: I had a detailed discussion with the patient and/or guardian regarding: the historical points, exam findings, and any diagnostic results supporting the discharge/admit diagnosis, lab results, the need for outpatient follow up, to return to the emergency department if symptoms worsen or persist or if there are any questions or concerns that arise at home. 01/10 22:38 Order name: COVID-19 SARS RT PCR (Document "Date of Onset" if Symptomatic); Complete bb Time: 00:29 Administered Medications: No medications were administered Disposition Summary: 01/11/22 00:30 Discharge Ordered Location: Home pm1 Problem: new pm1 Symptoms: have improved pm1 Condition: Stable pm1 Diagnosis - Coronavirus infection, unspecified pm1 Followup: pm1 - With: Emergency Department - When: As needed - Reason: Worsening of condition Followup: pm1 - With: Private Physician - When: 2 - 3 days - Reason: Recheck today's complaints, Continuance of care, Re-evaluation by your physician Discharge Instructions: - Discharge Summary Sheet pm1 - COVID-19 pm1 - COVID-19 Frequently Asked Questions pm1 - 10 Things You Can Do to Manage Your COVID-19 Symptoms at Home - [facility] pm1 - COVID-19: Quarantine vs. Isolation - [facility] pm1 Forms: - Work release form pm1 - Medication Reconciliation Form pm1 - Thank You Letter pm1 - Antibiotic Education pm1 - Prescription Opioid Use pm1 Signatures: Dispatcher [employer] Mayte Lockett RN RN Clyde Weiss NP GLASS EMBOSSER pm1
[2022-01-11 02:16] VITALS: BP 141/99; TEMP 98.8; O2SAT 100
== END 2022-01-11 01:05 | disposition home or self-care (01) ==
LOC: ER 21:47
DX: U07.1 COVID-19 (principal); J45.909 Unspecified asthma, uncomplicated; Z72.0 Tobacco use; Z88.0 Allergy status to penicillin; Z88.5 Allergy status to narcotic agent
CPT/HCPCS: 99283; U0003

== ENCOUNTER 2022-04-09 09:57 | Emergency (ER) | payer SELFPAY ==
--- OUTSIDE RECORDS SUMMARY | 2022-04-09 10:01 | XMS REPORT | Continuity of Care Document ---
:1985 Author Organization [facility] t Address [address] [place] [address] Care Team Providers Name Role Phone PCP, PATIENT DOES NOT HAVE A Primary Care Physician UnavailJEAN-CLAUDE Harrison Attending Clinician Unavailable JeanC-laude Aviles DO Attending Clinician NANCY BAUTISTA Attending Clinician Unavailable Nancy Bautista DO Attending Clinician Armand HALEY, Ace Hayden Attending Clinician Ramirez RIVERA, Barbara Turcios Attending Clinician Unavailable JAMES GREER Attending Clinician Unavailable James Carter Attending Clinician JAMES GREER Admitting Clinician Unavailable Payers Payer Name Policy Type Policy Number Effective Date Expiration Date [facility] [id number] 2016 [facility] MEDICAID 00:00:00 Problems Condition Condition Condition [...] obesity obesity 07-30 ity of 00:00: [place] 00 Medical Branch BMI BMI Disease Active Univers 50.0-59.9, 50.0-59.9, 1-09 it y of adult adult 00:00: [place] 00 Medical Branch Trichomoni Trichomoni Disease Active U nivers asis asis -24 ity of 00:00: [place] 00 Medical Branch [...] INS Class 08-21 ity of 00:00: [place] [facility] Penicill Propensi Active Swelling Pt [...] of tobacco Cigarette Smoker University of use [facility] Exposure to 2021-11-03 2021-11-13 Not sure University SARS-CoV-2 (event) 00:00:00 07:51:[address] [facility] Alcohol intake 2021-08-14 2021-08-14 0 /d University of 00:00:00 00:00:[address] [facility] Cigarettes smoked 2016-02-02 2016-02-02 Univers ity of current (pack per 00:00:00 00:00:00 ) - Reported Branch Cigarette 2016-02-02 2016-02-02 University of pack-years 00:00:00 00:00:[address] [facility] Tobacco use and 2016-02-02 2016-02-02 Never used Universit y of exposure 00:00:00 00:00:00 [place] [facility] Sex [birth year] Universit y of 00:00:00 00:00:[address] [facility] Smoking Status Start Date Stop Date Source Current every day smoker 2016-02-02 00:00:[address] [facility] Medications Ordered Filled Start Stop Current Ordering Indication Dosage Frequency Signature Comments Components Source Medication Medication Date Date Medication? Clinician (SIG) Name Name furosemide 2021- No [id number] Take 1 Univers 20 mg 4-25 -25 tablet by ity of tablet 00:00: 04:59 mouth [place] 00 :00 every Medical morning Branch and evening for 5 days, THEN 1 tablet daily for 85 days. ondansetron 2020- No 4mg 4 mg, Univ ers (ZOFRAN-ODT 12-30 Oral, ity of ) 06:15: 05:21 ONCE, 1 [place] disintegrat 00 :00 dose, Fri Med ical ing tablet 12/30/20 at [facility] 4 mg 0115, Routine ondansetron Yes [id number] 4mg Take 1 Univers (ZOFRAN 6-11 tablet by ity of ODT) 4 mg 00:00: mouth [place] disintegrat 00 every 8 Medic al ing tablet (eight) Branch hours as needed for Nausea and Vomiting (N/V). ondansetron Yes [id number] 4mg Take 1 Univers (ZOFRAN 6-11 tablet by ity of ODT) 4 mg 00:00: mouth [place] disintegrat 00 every 8 Medic al ing tablet (eight) Branch hours as needed for Nausea and Vomiting (N/V). ondansetron Yes [id number] 4mg Take 1 Univers (ZOFRAN 6-11 tablet by ity of ODT) 4 mg 00:00: mouth [place] disintegrat 00 every 8 Medic al ing tablet (eight) Branch hours as needed for Nausea and Vomiting (N/V). ondansetron Yes [id number] 4mg Take 1 Univers (ZOFRAN 6-11 tablet by ity of ODT) 4 mg 00:00: mouth [place] disintegrat 00 every 8 Medic al ing tablet (eight) Branch hours as needed for Nausea and Vomiting (N/V). ondansetron Yes [id number] 4mg Take 1 Univers (ZOFRAN 6-11 tablet by ity of ODT) 4 mg 00:00: mouth [place] disintegrat 00 every 8 Medic al ing tablet (eight) Branch hours as needed for Nausea and Vomiting (N/V). ondansetron 2021-0 Yes [id number] 4mg Take 1 Univers (ZOFRAN 6-11 tablet by ity of ODT) 4 mg 00:00: mouth [place] disintegrat 00 every 8 Medic al ing tablet (eight) Branch hours as needed for Nausea and Vomiting (N/V). ondansetron 2021-0 Yes [id number] 4mg Take 1 Univers (ZOFRAN 6-11 tablet by ity of ODT) 4 mg 00:00: mouth [place] disintegrat 00 every 8 Medic al ing tablet (eight) Branch hours as needed for Nausea and Vomiting (N/V). chlorphenir 2021-0 Yes [id number] 4mg Take 1 Univers amine 4 mg 5-18 tablet by ity of tablet 00:00: mouth [place] 00 every 6 Medical (six) Branch hours as needed for Allergies or Runny nose. methylPREDN 2021-0 Yes [id number] Take by Univers ISolone 5-18 mouth ity of (MEDROL, 00:00: SEE-INSTRU Rob as BERENICE,) 4 mg 00 CTIONS. Medica l tablets follow Branch package directions chlorphenir 2021-0 Yes [id number] 4mg Take 1 Univers amine 4 mg 5-18 tablet by ity of tablet 00:00: mouth [place] 00 every 6 Medical (six) Branch hours as needed for Allergies or Runny nose. methylPREDN 2021-0 Yes [id number] Take by Univers ISolone 5-18 mouth ity of (MEDROL, 00:00: SEE-INSTRU Rob as BERENICE,) 4 mg 00 CTIONS. Medica l tablets follow Branch package directions chlorphenir 2021-0 Yes [id number] 4mg Take 1 Univers amine 4 mg 5-18 tablet by ity of tablet 00:00: mouth [place] 00 every 6 Medical (six) Branch hours as needed for Allergies or Runny nose. methylPREDN 2021-0 Yes [id number] Take by Univers ISolone 5-18 mouth ity of (MEDROL, 00:00: SEE-INSTRU Rob as BERENICE,) 4 mg 00 CTIONS. Medica l tablets follow Branch package directions chlorphenir 2021-0 Yes [id number] 4mg Take 1 Univers amine 4 mg 5-18 tablet by ity of tablet 00:00: mouth [place] 00 every 6 Medical (six) Branch hours as needed for Allergies or Runny nose. methylPREDN 2021-0 Yes [id number] Take by Univers ISolone 5-18 mouth ity of (MEDROL, 00:00: SEE-INSTRU Rob as BERENICE,) 4 mg 00 CTIONS. Medica l tablets follow Branch package directions chlorphenir 2021-0 Yes [id number] 4mg Take 1 Univers amine 4 mg 5-18 tablet by ity of tablet 00:00: mouth [place] 00 every 6 Medical (six) Branch hours as needed for Allergies or Runny nose. methylPREDN 2021-0 Yes [id number] Take by Univers ISolone 5-18 mouth ity of (MEDROL, 00:00: SEE-INSTRU Rob as BERENICE,) 4 mg 00 CTIONS. Medica l tablets follow Branch package directions chlorphenir 2021-0 Yes [id number] 4mg Take 1 Univers amine 4 mg 5-18 tablet by ity of tablet 00:00: mouth [place] 00 every 6 Medical (six) Branch hours as needed for Allergies or Runny nose. methylPREDN 2021-0 Yes [id number] Take by Univers ISolone 5-18 mouth ity of (MEDROL, 00:00: SEE-INSTRU Rob as BERENICE,) 4 mg 00 CTIONS. Medica l tablets follow Branch package directions chlorphenir 2021-0 Yes [id number] 4mg Take 1 Univers amine 4 mg 5-18 tablet by ity of tablet 00:00: mouth [place] 00 every 6 Medical (six) Branch hours as needed for Allergies or Runny nose. methylPREDN 2021-0 Yes [id number] Take by Univers ISolone 5-18 mouth ity of (MEDROL, 00:00: SEE-INSTRU Rob as BERENICE,) 4 mg 00 CTIONS. Medica l tablets follow Branch package directions chlorphenir 2021-0 Yes [id number] 4mg Take 1 Univers amine 4 mg 5-18 tablet by ity of tablet 00:00: mouth [place] 00 every 6 Medical (six) Branch hours as needed for Allergies or Runny nose. methylPREDN 2021-0 Yes [id number] Take by Univers ISolone 5-18 mouth ity of (MEDROL, 00:00: SEE-INSTRU Rob as BERENICE,) 4 mg 00 CTIONS. Medica l tablets follow Branch package directions clindamycin 2020- No [id number] 300mg Take 2 Univers 150 mg 5-18 [...] vers FORMOTEROL 2-11 ity of FUMARATE 14:43: [place] (SYMBICORT 20 Medical INHALE) Branch diphenhydrA 2016-07 Yes 25mg Take 25 mg Univers MINE 2-11 by mouth ity of (BENADRYL 14:43: every 4 [place] ALLERGY) 25 20 (four) Medica l mg tablet hours as Branch needed for Allergies. BUDESONIDE/ 2016-07 Yes Inhale. Uni vers FORMOTEROL 2-11 ity of FUMARATE 14:43: [place] (SYMBICORT 20 Medical INHALE) Branch diphenhydrA 2016-07 Yes 25mg Take 25 mg Univers MINE 2-11 by mouth ity of (BENADRYL 14:43: every 4 [place] ALLERGY) 25 20 (four) Medica l mg tablet hours as Branch needed for Allergies. BUDESONIDE/ 2016-07 Yes Inhale. Uni vers FORMOTEROL 2-11 ity of FUMARATE 14:43: [place] (SYMBICORT 20 Medical INHALE) Branch diphenhydrA 2016-07 Yes 25mg Take 25 mg Univers MINE 2-11 by mouth ity of (BENADRYL 14:43: every 4 [place] ALLERGY) 25 20 (four) Medica l mg tablet hours as Branch needed for Allergies. BUDESONIDE/ 2016-07 Yes Inhale. Uni vers FORMOTEROL 2-11 ity of FUMARATE 14:43: [place] (SYMBICORT 20 Medical INHALE) Branch diphenhydrA 2016-07 Yes 25mg Take 25 mg Univers MINE 2-11 by mouth ity of (BENADRYL 08:43: every 4 [place] ALLERGY) 25 20 (four) Medica l mg tablet hours as Branch needed for Allergies. BUDESONIDE/ 2016-07 Yes Inhale. Uni vers FORMOTEROL 2-11 ity of FUMARATE 08:43: [place] (SYMBICORT 20 Medical INHALE) Branch diphenhydrA 2016-07 Yes 25mg Take 25 mg Univers MINE 2-11 by mouth ity of (BENADRYL 08:43: every 4 [place] ALLERGY) 25 20 (four) Medica l mg tablet hours as Branch needed for Allergies. BUDESONIDE/ 2016-07 Yes Inhale. Uni vers FORMOTEROL 2-11 ity of FUMARATE 08:43: [place] (SYMBICORT 20 Medical INHALE) Branch diphenhydrA 2016-07 Yes 25mg Take 25 mg Univers MINE 2-11 by mouth ity of (BENADRYL 08:43: every 4 [place] ALLERGY) 25 20 (four) Medica l mg tablet hours as Branch needed for Allergies. BUDESONIDE/ 2016-07 Yes Inhale. Uni vers FORMOTEROL 2-11 ity of FUMARATE 08:43: [place] (SYMBICORT 20 Medical INHALE) Branch diphenhydrA 2016-07 Yes 25mg Take 25 mg Univers MINE 2-11 by mouth ity of (BENADRYL 08:43: every 4 [place] ALLERGY) 25 20 (four) Medica l mg tablet hours as Branch needed for Allergies. BUDESONIDE/ 2016-07 Yes Inhale. Uni vers FORMOTEROL 2-11 ity of FUMARATE 08:43: [place] (SYMBICORT 20 Medical INHALE) Branch docusate 2016-07 [...] Take with food or milk. albuterol Yes [id number] 2.5mg Inhale 3 Univers 2.5 mg /3 9-13 103 mL every 4 ity of mL (0.083 00:00: (four) [place] %) 00 hours as Medical nebulizer needed for Bran ch solution Wheezing or Shortness of Breath. albuterol Yes [id number] 2.5mg Inhale 3 Univers 2.5 mg /3 9-13 103 mL every 4 ity of mL (0.083 00:00: (four) [place] %) 00 hours as Medical nebulizer needed for Bran ch solution Wheezing or Shortness of Breath. albuterol Yes [id number] 2.5mg Inhale 3 Univers 2.5 mg /3 9-13 103 mL every 4 ity of mL (0.083 00:00: (four) [place] %) 00 hours as Medical nebulizer needed for Bran ch solution Wheezing or Shortness of Breath. albuterol Yes [id number] 2.5mg Inhale 3 Univers 2.5 mg /3 9-13 103 mL every 4 ity of mL (0.083 00:00: (four) [place] %) 00 hours as Medical nebulizer needed for Bran ch solution Wheezing or Shortness of Breath. albuterol Yes [id number] 2.5mg Inhale 3 Univers 2.5 mg /3 9-13 103 mL every 4 ity of mL (0.083 00:00: (four) [place] %) 00 hours as Medical nebulizer needed for Bran ch solution Wheezing or Shortness of Breath. albuterol Yes [id number] 2.5mg Inhale 3 Univers 2.5 mg /3 9-13 103 mL every 4 ity of mL (0.083 00:00: (four) [place] %) 00 hours as Medical nebulizer needed for Bran ch solution Wheezing or Shortness of Breath. albuterol Yes [id number] 2.5mg Inhale 3 Univers 2.5 mg /3 9-13 103 mL every 4 ity of mL (0.083 00:00: (four) [place] %) 00 hours as Medical nebulizer needed for Bran ch solution Wheezing or Shortness of Breath. albuterol Yes [id number] 2.5mg Inhale 3 Univers 2.5 mg /3 9-13 103 mL every 4 ity of mL (0.083 00:00: (four) [place] %) 00 hours as Medical nebulizer needed for Bran ch solution Wheezing or Shortness of Breath. Immunizations Ordered Filled Immunization Date Status Comments [facility] e Immunization Name Name [facility] 2017-03-26 Completed University of 00:00:00 [facility] 2017-03-26 Completed University of 00:00:[address] [facility] TD 2017-03-26 Completed University of 00:00:00 [facility] 2017-03-26 Completed University of 00:00:00 [facility] 2017-03-26 Completed University of 00:00:[address] [facility] TD 2017-03-26 Completed University of 00:00:00 [facility] 2017-03-26 Completed University of 00:00:00 [facility] 2017-03-26 Completed University of 00:00:[address] [facility] [place] 2009-03-29 Completed University of 00:00:[address] [facility] [place] 2009-03-29 Completed University of 00:00:[address] [facility] [place] 2009-03-29 Completed University of 00:00:[address] [facility] [place] 2009-03-29 Completed University of 00:00:[address] [facility] [place] 2009-03-29 Completed University of 00:00:[address] [facility] [place] 2009-03-29 Completed University of 00:00:[address] [facility] [place] 2009-03-29 Completed University of 00:00:[address] [facility] [place] 2009-03-29 Completed University of 00:00:[address] [facility] Td 2008-07-22 Completed University of 00:00:[address] [facility] Td 2008-07-22 Completed University of 00:00:00 [facility] 2008-07-22 Completed University of 00:00:00 [facility] 2008-07-22 Completed University of 00:00:00 [facility] 2008-07-22 Completed University of 00:00:00 [place] [facility] Td 2008-07-22 Completed University of 00:00:00 [place] [facility] Td 2008-07-22 Completed University of 00:00:00 [place] [facility] Td 2008-07-22 Completed University of 00:00:[address] [facility] Vital Signs Vital Name Observation Time Observation Value Comments Source Systolic blood 2021-11-13 12:53:00 139 mm[Hg] Univer sity of pressure [facility] Branch Diastolic blood 2021-11-13 12:53:00 106 mm[Hg] Unive rsity of pressure [facility] Heart rate 2021-11-13 12:53:00 100 /min Universi ty of [facility] Body temperature 2021-11-13 12:53:00 37.17 Ysabel Univ ersity of [facility] Branch Respiratory rate 2021-11-13 12:53:00 18 /min Univ ersity of [facility] Body height 2021-11-13 12:53:00 167.6 cm Universi ty of [place] [facility] [place] Body weight 2021-11-13 12:53:00 147.419 kg Universi ty of [place] [facility] BMI 2021-11-13 12:53:00 52.46 kg/m2 Universi ty of [place] [facility] Oxygen saturation in 2021-11-13 12:53:00 98 /min University of Arterial blood by [place] Orders vahe Pulse oximetry Branch Systolic blood 2021-08-14 13:32:00 136 mm[Hg] Univer sity of pressure [facility] Branch Diastolic blood 2021-08-14 13:32:00 94 mm[Hg] Unive rsity of pressure [facility] Heart rate 2021-08-14 13:32:00 89 /min Universi ty of [place] [facility] Body temperature 2021-08-14 13:32:00 36.83 Ysabel Univ ersity of [facility] Branch Respiratory rate 2021-08-14 13:32:00 22 /min Univ ersity of [place] [facility] Body weight 2021-08-14 13:32:00 147.419 kg Universi ty of [place] [facility] BMI 2021-08-14 13:32:00 52.46 kg/m2 Universi ty of [place] [facility] Oxygen saturation in 2021-08-14 13:32:00 98 /min University of Arterial blood by [facility] Pulse oximetry Branch Systolic blood 2021-03-17 14:51:00 123 mm[Hg] Univer sity of pressure [place] [facility] Diastolic blood 2021-03-17 14:51:00 87 mm[Hg] Unive rsity of pressure [place] [facility] Heart rate 2021-03-17 14:51:00 92 /min Universi ty of [place] [facility] Body temperature 2021-03-17 14:51:00 37.11 Ysabel Univ ersity of [place] [facility] Respiratory rate 2021-03-17 14:51:00 20 /min Univ ersity of [place] [facility] Body weight 2021-03-17 14:51:00 152.409 kg Universi ty of [place] [facility] BMI 2021-03-17 14:51:00 54.23 kg/m2 Universi ty of [place] [facility] Oxygen saturation in 2021-03-17 14:51:00 98 /min University of Arterial blood by [facility] Pulse oximetry Branch Systolic blood 2020-12-30 06:00:00 150 mm[Hg] Univer sity of pressure [place] [facility] Diastolic blood 2020-12-30 06:00:00 91 mm[Hg] Unive rsity of pressure [place] [facility] Heart rate 2020-12-30 06:00:00 93 /min Universi ty of [place] [facility] Respiratory rate 2020-12-30 06:00:00 18 /min Univ ersity of [place] [facility] Oxygen saturation in 2020-12-30 06:00:00 97 /min University of Arterial blood by [facility] Pulse oximetry Branch Body temperature 2020-12-30 05:07:00 37.22 Ysabel Univ ersity of [place] [facility] Body height 2020-12-30 05:07:00 167.6 cm Universi ty of [place] [facility] Body weight 2020-12-30 05:07:00 136.079 kg Universi ty of [place] [facility] BMI 2020-12-30 05:07:00 48.42 kg/m2 Universi ty of [place] [facility] Systolic blood 2020-12-06 18:13:00 152 mm[Hg] Univer sity of pressure [place] [facility] Diastolic blood 2020-12-06 18:13:00 86 mm[Hg] Unive rsity of pressure [place] [facility] Heart rate 2020-12-06 18:13:00 99 /min [facility] Body temperature 2020-12-06 18:13:00 37.22 Ysabel [facility] Respiratory rate 2020-12-06 18:13:00 18 /min [facility] Body weight 2020-12-06 18:13:00 148.78 kg [facility] BMI 2020-12-06 18:13:00 52.94 kg/m2 [facility] Oxygen saturation in 2020-12-06 18:13:00 97 /min [facility] Arterial blood by [facility] Pulse oximetry Branch Procedures Procedure Date / Time Performed Performing Clinician Sour e CONSENT/REFUSAL FOR 2021-08-14 13:27:19 Doctor Unassigned, No [facility] [place] DI[facility] AND Name [facility] TREATMENT COMP. METABOLIC PANEL 2021-03-17 17:54:00 James Greer [facility] ([id number]) [facility] [place] CBC WITH DIFF 2021-03-17 17:54:00 James Greer [facility] N-TERMINAL PRO-BNP 2021-03-17 17:54:00 James Greer [facility] XR ANKLE 3+ VW 2021-03-17 15:53:14 James Greer [facility] POCT TEST 2020-12-30 05:18:00 Nancy Bautista [facility] CONSENT/REFUSAL FOR 2020-12-30 04:59:10 Doctor Unassigned, No Un [facility] [place] DIAGNOSIS AND Name [facility] [place] TREATMENT NOTICE OF PRIVACY 2020-12-06 18:07:34 Doctor Unassigned, No [facility] CONSENT/REFUSAL FOR 2020-12-06 18:07:14 Doctor Unassigned, No Un i[facility] of [place] DIAGNOSIS AND Name [facility] [place] TREATMENT Encounters Start End Encounter Admission Attending Care Care Encounter Source Date/Time Date/Time Type Type Clinicians Facility Department ID 2021-05-22 Emergency [facility] [id number] Univers 00:33:34 ity [facility] 2021-05-21 Emergency [facility] [id number] Univers 19:47[facility] [facility] 2021-11-13 2021-11-13 Emergency X [facility] ERT [id number] Univers 07:54:00 08:21:00 JEAN-CLAUDE itemily [facility] 2021-11-13 2021-11-13 Emergency [facility] [id number] Univers 07:54:00 08:21:00 Jean-Claude ROGERS [id number] i ty [address]7.2.686 [facility] [id number] [address] 2021-08-14 2021-08-14 Emergency X [facility] E[facility] [id number] Univers 07:35:00 08:08:00 NANCY itemily [facility] 2021-08-14 2021-08-14 Emergency [facility] [id number] Univers 07:35:00 08:08:00 Nancy ROGERS [id number] ity [place] [id number] [facility] [id number] [address] 2021-08-14 2021-08-14 Letter JAHAIRA Acuna [id number] Univers 00:00:00 00:00:00 (Out) Ace KEY [id number] i ty [address]2.7.2.686 Rob as [id number] [address] 2021-08-14 2021-08-14 Telephone JAHAIRA Guzmán [id number] Univers 00:00:00 00:00:[address] [id number] ity of [place] [id number] Rob as [id number] [address] 2021-03-17 2021-03-17 Emergency [facility] ERT [id number] Univers 09:53:00 13:52:00 JAMES ity [facility] 2021-03-17 2021-03-17 Emergency [facility] [id number] Univers 09:53:00 13:52:00 James Rogers [id number] i ty of [place] [id number] [facility] [id number] [address] 2020-12-30 2020-12-30 Emergency [facility] [id number] Univers 00:00:00 01:28:00 Nancy Rogers [id number] ity of [place] [id number] [facility] [id number] [address] 2020-12-06 2020-12-06 Emergency [facility] [id number] Univers 13:17:00 14:49:00 Jean-Claude Rogers [id number] i ty of [place] [id number] [facility] [id number] [address] Results Test Description Test Time Test Comments Results Result Comments Source N-TERMINAL PRO-BNP 2021-03-17 18:22:39 Test Item Value Reference Range Interpretation Comme nts NT-proBNP (test code = 71 pg/mL See_Comment [Aut omated message] The [id number]) system which ge nerated this result tra nsmitted reference range : <=125. The reference r sammy was not used to int erpret this result as kimani l/abnormal. LORRAINE (test code = LORRAINE) Biotin has been reported to cause a negative bias, interpret results relative to patient's use of biotin. Lab Interpretation (test Normal code = 26761-4) [facility] [id number] 18:22:39 Test Item Value Reference Range Interpretation Comments NT-proBNP (test code = 71 pg/mL See_Comment [Aut omated message] [id number]) The system whic h generated this result transmitted ref erence range: <=125. T he reference range was not used to int erpret this result as normal/abnormal . LORRAINE (test code = LORRAINE) Lab Interpretation (test Normal code = 54708-3) [facility]. METABOLIC PANEL ([id number])2021-03-17 18:14:00 Test Item Value Reference Range Interpretation Comments NA (test code = 139 mmol/L 135-145 4962330488) K (test code = 4.0 mmol/L 3.5-5.0 4819512002) CL (test code = 103 mmol/L 98-108 6663658221) CO2 TOTAL (test code 30 mmol/L 23-31 = 8366749781) AGAP (test code = 2-16 0822929590) BUN (test code = 10 mg/dL 7-23 4966989821) GLUCOSE (test code = 86 mg/dL 70-110 0302112115) CREATININE (test code 0.74 mg/dL 0.50-1.04 = 6826334434) TOTAL BILI (test code 0.4 mg/dL 0.1-1.1 = 8351495774) CALCIUM (test code = 9.7 mg/dL 8.6-10.6 3690424553) T PROTEIN (test code 8.1 g/dL 6.3-8.2 = 9161350274) ALBUMIN (test code = 4.4 g/dL 3.5-5.0 6270182889) ALK PHOS (test code = 95 U/L 34-122 4382808167) ALTv (test code = 30 U/L 5-35 1742-6) AST(SGOT) (test code 31 U/L 13-40 = 4186755774) eGFR (test code = mL/min/1.73m2 7206492748) LORRAINE (test code = LORRAINE) Association of [...] or urine or abnormalities in imaging tests). [facility] METABOLIC PANEL ([id number])2021-03-17 18:14:00 Test Item Value Reference Range Interpretation Comments NA (test code = 8953675538) 139 mmol/L 135-145 K (test code = 8904857227) 4.0 mmol/L 3.5-5.0 CL (test code = 1663240907) 103 mmol/L 98-108 CO2 TOTAL (test code = 6879696564) 30 mmol/L 23-31 AGAP (test code = 8801238511) 2-16 BUN (test code = 5786768758) 10 mg/dL 7-23 GLUCOSE (test code = 3181751311) 86 mg/dL 70-110 CREATININE (test code = 0.74 mg/dL 0.50-1.04 7155598955) TOTAL BILI (test code = 0.4 mg/dL 0.1-1.1 6177631907) CALCIUM (test code = 1535427846) 9.7 mg/dL 8.6-10.6 T PROTEIN (test code = 4169801173) 8.1 g/dL 6.3-8.2 ALBUMIN (test code = 7538205037) 4.4 g/dL 3.5-5.0 ALK PHOS (test code = 7520540792) 95 U/L 34-122 ALTv (test code = 1742-6) 30 U/L 5-35 AST(SGOT) (test code = 9055293875) 31 U/L 13-40 eGFR (test code = 0782280463) mL/min/1.73m2 LORRAINE (test code = LORRAINE) [facility] WITH [id number] 18:03:33 Test Item Value Reference Range Interpretation Comments WBC (test code = See_Comment [Automated message] 6690-2) The system [employer] generated this result transmitted ref erence range: 4.30 - 1 1.10 10*3/?L. The re ference range was not u sed to interpret this result as normal/abnor mal. RBC (test code = See_Comment [Automated message] 069-8) The system [employer] generated this result transmitted ref erence range: [...] RDW-SD (test code 45.8 fL 39.0-49.9 = 70940-1) RDW-CV (test code 14.0 % 12.0-15.5 = 788-0) PLT (test code = See_Comment [Automated message] 227-3) The system [employer] generated this result transmitted ref erence range: 166 - 35 8 10*3/?L. The re ference range was not u sed to interpret this result as normal/abnor mal. MPV (test code = 10.3 fL 9.5-12.9 48116-8) NRBC/100 WBC (test See_Comment [Automat ed message] code = 6800733138) The syste [employer] which generated this result transmitted ref erence range: 0.0 - 10 .0 /100 WBCs. The refer ence range was not u sed to interpret this result as normal/abnor mal. NRBC x10^3 (test <0.01 See_Comment [Automated message] code = 5105857892) The syste m which generated this result transmitted ref erence range: 10*3/?L. The reference range was not used to interpr et this result as normal/abnormal . GRAN MAT (NEUT) % 72.2 % (test code = 770-8) IMM GRAN % (test 0.30 % code = 4652537136) LYMPH % (test code 20.1 % = 736-9) MONO % (test code 5.5 % = 5905-5) EOS % (test code = 1.4 % 713-8) BASO % (test code 0.5 % = 706-2) GRAN MAT 6.69 10*3/uL 1.88-7.09 x10^3(ANC) (test code = 2132923221) IMM GRAN x10^3 0.03 10*3/uL 0.00-0.06 (test code = 9702061447) LYMPH x10^3 (test 1.86 10*3/uL 1.32-3.29 code = 731-0) MONO x10^3 (test 0.51 10*3/uL 0.33-0.92 code = 742-7) EOS x10^3 (test 0.13 10*3/uL 0.03-0.39 code = 711-2) BASO x10^3 (test 0.05 10*3/uL 0.01-0.07 code = 704-7) [facility] WITH [id number] 18:03:33 Test Item Value Reference Range Interpretation Comments WBC (test code = See_Comment [Automated message] 1190-2) The system [employer] generated this result transmitted ref erence range: 4.30 - 1 1.10 10*3/?L. The re ference range was not u sed to interpret this result as normal/abnor mal. RBC (test code = See_Comment [Automated message] 239-8) The system [employer] generated this result transmitted ref erence range: 3.93 - 5 .25 10*6/?L. The re ference range was not u sed to interpret this result as normal/abnor mal. HGB (test code = 13.7 g/dL 11.6-15.0 888-7) HCT (test code = 42.8 % 35.7-45.2 4544-3) MCV (test code = 89.7 fL 80.6-95.5 787-2) MCH (test code = 28.7 pg 25.9-32.8 785-6) MCHC (test code = 32.0 g/dL 31.6-35.1 786-4) RDW-SD (test code 45.8 fL 39.0-49.9 = 99142-2) RDW-CV (test code 14.0 % 12.0-15.5 = 788-0) PLT (test code = See_Comment [Automated message] 777-3) The system whic h generated this result transmitted ref erence range: 166 - 35 8 10*3/?L. The re ference range was not u sed to interpret this result as normal/abnor mal. MPV (test code = 10.3 fL 9.5-12.9 46428-9) NRBC/100 WBC (test See_Comment [Automat ed message] code = 9690288608) The syste m which generated this result transmitted ref erence range: 0.0 - 10 .0 /100 WBCs. The refer ence range was not u sed to interpret this result as normal/abnor mal. NRBC x10^3 (test <0.01 See_Comment [Automated message] code = 5746042144) The syste m which generated this result transmitted ref erence range: 10*3/?L. The reference range was not used to interpr et this result as normal/abnormal . GRAN MAT (NEUT) % 72.2 % (test code = 770-8) IMM GRAN % (test 0.30 % code = 0716355351) LYMPH % (test code 20.1 % = 736-9) MONO % (test code 5.5 % = 5905-5) EOS % (test code = 1.4 % 713-8) BASO % (test code 0.5 % = 706-2) GRAN MAT 6.69 10*3/uL 1.88-7.09 x10^3(ANC) (test code = 4896755089) IMM GRAN x10^3 0.03 10*3/uL 0.00-0.06 (test code = 2837055685) LYMPH x10^3 (test 1.86 10*3/uL 1.32-3.29 code = 731-0) MONO x10^3 (test 0.51 10*3/uL 0.33-0.92 code = 742-7) EOS x10^3 (test 0.13 10*3/uL 0.03-0.39 code = 711-2) BASO x10^3 (test 0.05 10*3/uL 0.01-0.07 code = 704-7) [facility] [id number] 16:43:38 Severe soft tissue swelling which may be seen with dependent edema andright- sided heart failure or cellulitis. No acute bony abnormalities. EXAM: XR ANKLE 3+ VW BILATERAL HISTORY: ankle pain, swellingCOMPARISON: None FINDINGS: Imaging of the left and right ankle demonstrate severe diffuse swelling.The ankle mortise is anatomic.No acute bony abnormality is present. Noaggressive bony destructive change or periosteal reaction is seen. Osseousremodeling is seen along the posterior and medial subtalar joint marginswith corticated fragmentation which may be secondary to extra-articularposterior medial t alocalcaneal fibrous coalition. [facility], Radiant Results Inft User [...] andright-sided heart failure or cellulitis.No acute bony abnormalities.[facility]ATERAL 2021-03-17 16:43:38 Severe [...] is seen along the posterior and medial subtalarjoint marginswith corticated fragmentation which may be secondary to extra- articularposterior medialtalocalcaneal fibrous coalition. [facility], Radiant Results Inft User - 03/17/2021 11:44 AM CDTFormattingof this note might be different from the original.EXAM:XR ANKLE 3+ VW BILATERALHISTORY:ankle pain, swelling COMPARISON:NoneFINDINGS: Imaging of the left and right ankle demonstrate severe diffuse swelling.The ankle mortise is anatomic.No acute bony abnormality is present. Noaggressive bony destructivechange or periosteal reaction is seen. Osseousremodeling is seen along the posterior and medial subtalar joint marginswith corticated fragmentation which may be secondary to extra- articularposterior medial talocalcaneal fibrous coalition.IMPRESSIONSevere soft tissue swelling which may be seen with dependent edema andright-sided heart failure or cellulitis.No acute bony abnormalities.[facility] [id number] 05:18:00 Test Item Value Reference Range Interpretation Comments POCT PREG (test code = 1605) negative On board controls acceptable with present C Line (test code = 3574) POCT PREG LOT # (test code = 3575) [id number] POCT PREG TEST DATE (test 06/20/2022 code = 3576) Lab Interpretation (test code = Normal 92245-8) [facility]"
--- NOTE | 2022-04-09 11:46 | RAD REPORT ---
EXAM DESCRIPTION: RAD - Chest Single View - 04/09/2022 10:57 am CLINICAL HISTORY: DYSPNEA Chest pain. COMPARISON: Chest Single View dated 10/15/2016; Chest Pa And Lat (2 Views) dated 09/27/2016 FINDINGS: Portable technique limits examination quality. Mildly prominent interstitial lung markings. This could indicate a viral infection or mild interstiti al edema. The heart is upper limit of normal in size. No displaced fractures.
--- NOTE | 2022-04-09 12:42 | EDPHYS ---
Physician Documentation [facility] Name: More Bustillo Age: 37 yrs Sex: Female : 1985 Arrival Date: 04/09/2022 Time: 10:00 Bed 11 Private MD: ED Physician Genie Cornejo HPI: 04/09 10:20 This 37 yrs old Female presents to ER via Ambulatory with complaints of Cough, Sore jh7 Throat. 10:20 The patient or guardian reports cough, hoarse voice. Onset: The symptoms/episode jh7 began/occurred 3 day(s) ago. Associated signs and symptoms: Pertinent positives: fever, sore throat, Shortness of breath, Pertinent negatives: chest pain, diarrhea. 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 - Social history:: Smoking status: Patient denies any tobacco usage or history of. ROS: 10:20 Eyes: Negative for injury, pain, redness, and discharge, Cardiovascular: Negative for jh7 chest pain, palpitations, and edema, Abdomen/GI: Negative for abdominal pain, nausea, vomiting, diarrhea, and constipation, Back: Negative for injury and pain, MS/Extremity: Negative for injury and deformity, Skin: Negative for injury, rash, and discoloration, Neuro: Negative for headache, weakness, numbness, tingling, and seizure. 10:20 Constitutional: Positive for fever. 10:20 ENT: Positive for sore throat. 10:20 Respiratory: Positive for cough, shortness of breath, Negative for wheezing. 10:20 All other systems are negative. Exam: 10:20 Constitutional: This is a well developed, well nourished patient who is awake, alert, jh7 and in no acute distress. Head/Face: Normocephalic, atraumatic. Cardiovascular: Regular rate and rhythm with a normal S1 and S2. No gallops, murmurs, or rubs. Normal PMI, no JVD. No pulse deficits. Respiratory: Lungs have equal breath sounds bilaterally, clear to auscultation and percussion. No rales, rhonchi or wheezes noted. No increased work of breathing, no retractions or nasal flaring. Back: No spinal tenderness. No costovertebral tenderness. Full range of motion. Skin: Warm, dry with normal turgor. Normal color with no rashes, no lesions, and no evidence of cellulitis. MS/ Extremity: Pulses equal, no cyanosis. Neurovascular intact. Full, normal range of motion. Neuro: Awake and alert, GCS 15, oriented to person, place, time, and situation. Motor strength 5/5 in all extremities. Sensory grossly intact. Normal gait. 10:20 ENT: Posterior pharynx: Postnasal drainage. Vital Signs: 10:11 BP 142 / 77; Pulse 87; Resp 18; Temp 97.4; Pulse Ox 97% on R/A; ph MDM: 10:16 Patient medically screened. [facility] 12:00 Differential Diagnosis: Upper Respiratory Infection Pharyngitis Other Tonsillitis. Data [facility] reviewed: vital signs, nurses notes, lab test result(s). Data interpreted: Pulse oximetry: is 97 %. Interpretation: normal. Counseling: I had a detailed discussion with the patient and/or guardian regarding: the historical points, exam findings, and any diagnostic results supporting the discharge/admit diagnosis, to return to the emergency department if symptoms worsen or persist or if there are any questions or concerns that arise at home. 04/09 10:16 Order name: COVID-19 SARS RT PCR (Document "Date of Onset" if Symptomatic); Complete [facility] Time: 12:41 04/09 10:16 Order name: Flu; Complete Time: 11:27 7 04/09 10:25 Order name: XRAY CXR (1 view); Complete Time: 11:50 [facility] Administered Medications: No medications were administered Disposition: 18:41 STAFF ATTESTATION STATEMENT: I was immediately available onsite in the emergency sd2 department for consultation in the care of this patient. I did not see or examine this patient. Genie Cornejo MD. Disposition Summary: 04/09/22 12:42 Discharge Ordered Location: Home [facility] Problem: new [facility] Symptoms: are unchanged [facility] Condition: Stable [facility] Diagnosis - Other specified diseases of upper respiratory tract [facility] Followup: [facility] - With: Private Physician - When: 2 - 3 days - Reason: Recheck today's complaints Discharge Instructions: - Discharge Summary Sheet 7 - Upper Respiratory Infection, Adult [facility] Forms: - Medication Reconciliation Form 7 - Thank You Letter 7 Prescriptions: - ProAir HFA 90 mcg/actuation Inhalation HFA aerosol inhaler - inhale 2 puff by INHALATION route every 4-6 hours As needed; 1 Inhaler; jh7 Refills: 0, Product Selection Permitted - Tessalon Perles 100 mg Oral Capsule - take 1 capsule by ORAL route every 8 hours As needed; 15 capsule; Refills: 0, [facility] Product Selection Permitted Signatures: Dispatcher [employer] Rissa Ruvalcaba RN RN ph Shelly Lee, PLANNING AND ANALYSIS MANAGER PLANNING AND ANALYSIS MANAGER 7 Genie Cornejo MD MD sd2
--- NOTE | 2022-04-09 12:42 | ER ---
Nurse's Notes [facility] Name: More Bustillo Age: 37 yrs Sex: Female : 1985 Arrival Date: 04/09/2022 Time: 10:00 Bed 11 Private MD: Diagnosis: Other specified diseases of upper respiratory tract Presentation: 04/09 10:11 Chief complaint: Patient states: Scratchy throat, runny nose, headache, x approx 2 ph weeks. Home covid test negative a week ago. Coronavirus screen: Vaccine status: Patient reports being unvaccinated. Ebola Screen: No symptoms or risks identified at this time. Initial Sepsis Screen: Does the patient meet any 2 criteria? No. Patient's initial sepsis screen is negative. Does the patient have a suspected source of infection? No. Patient's initial sepsis screen is negative. Risk Assessment: Do you want to hurt yourself or someone else? Patient reports no desire to harm self or others. Onset of symptoms was April 09, 2022. 10:11 Method Of Arrival: Ambulatory ph 10:11 Acuity: CHAD 4 ph Triage Assessment: 10:22 General: Appears in no apparent distress. Behavior is calm, cooperative. Pain: Denies ph pain. EENT: Reports nasal congestion nasal discharge pain when swallowing. Neuro: Level of Consciousness is awake, alert, obeys commands, Oriented to person, place, time, situation. Respiratory: Reports shortness of breath cough that is. Derm: Skin is healthy with good turgor, Skin is pink, warm \T\ dry. Musculoskeletal: Circulation, motion, and sensation intact. Range of motion: intact in all extremities. 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 - Social history:: Smoking status: Patient denies any tobacco usage or history of. Screenin:18 Abuse screen: Denies threats or abuse. Denies injuries from another. Nutritional ph screening: No deficits noted. Tuberculosis screening: No symptoms or risk factors identified. Fall Risk None identified. Assessment: 10:22 General: SEE TRIAGE ASSESSMENT. ph Vital Signs: 10:11 BP 142 / 77; Pulse 87; Resp 18; Temp 97.4; Pulse Ox 97% on R/A; ph ED Course: 10:00 Patient arrived in ED. rg4 10:01 Shelly Lee FNP [facility] 7 10:01 Genie Cornejo MD is Attending Physician. [facility] 10:11 Rissa Siddiqi, RN is Primary Nurse. ph 10:12 Triage completed. ph 10:22 Arm band placed on Patient placed in an exam room. ph 10:22 Patient has correct armband on for positive identification. Bed in low position. Call ph light in reach. Side rails up X 1. 10:58 XRAY CXR (1 view) In Process Unspecified. EDMS Administered Medications: No medications were administered Medication: 10:22 VIS not applicable for this client. ph Outcome: 12:42 Discharge ordered by . [facility] 13:16 Patient left the ED. ph Signatures: Dispatcher [employer] EDMS Rissa Siddiqi RN RN Linnea Delong rg4 Shelly Lee FNP [place] [phone]
[2022-04-10 16:28] VITALS: BP 142/77; TEMP 97.4; O2SAT 97
== END 2022-04-09 13:16 | disposition home or self-care (01) ==
LOC: ER 09:57
DX: J39.8 Other specified diseases of upper respiratory tract (principal); Z20.822 Contact with and (suspected) exposure to COVID-19
CPT/HCPCS: 71045; 87804; 99282; U0003